=== PATIENT | female | born 1995 | race Hispanic/Latino ===

== ENCOUNTER 2017-09-22 12:24 | Emergency (ER) | payer OTHER ==
--- OUTSIDE RECORDS SUMMARY | 2017-09-22 12:28 | XMS REPORT | Clinical Summary ---
:1995 Author Organization [facility] Address [address] [place] [address] Care Team Providers Name Role Phone Asked, No Pcp Primary Care Provider Unavailable Allergies No Known Allergies Current Medications Prescription Sig. Disp. Refills Start Date End Date Status ibuprofen Take 400 mg by Active (ADVIL,MOTRIN) mouth as needed 400 MG tablet for headaches. multivitamin with Take 1 tablet by Active minerals tablet mouth daily. Takes One-A-Day women's doxycycline Take 1 capsule 22 capsule 0 10/28/2016 (VIBRAMYCIN) 100 (100 mg total) by 7 MG mouth 2 (two) capsuleIndication times a day for s: Pelvic 11 days inflammatory Indications: disease Pelvic inflammatory disease. hydrOXYzine Take 1 tablet (10 7 tablet 0 10/28/2016 (ATARAX) 10 MG mg total) by 7 tabletIndications mouth 3 (three) : Anxiety times a day as needed for anxiety for up to 30 days Indications: Anxiety. citalopram Take 1 tablet (20 14 tablet 0 10/28/2016 (CeleXA) 20 MG mg total) by 7 tabletIndications mouth every : Major morning for 30 Depressive days Indications: Disorder Major Depressive Disorder. traZODone Take 1 tablet (50 14 tablet 0 10/28/2016 (DESYREL) 50 MG mg total) by 7 tabletIndications mouth nightly as : insomnia needed for sleep associated with for up to 30 days depression Indications: insomnia associated with depression. doxycycline Take 1 capsule 14 capsule 0 10/28/2016 Discontinued (VIBRAMYCIN) 100 (100 mg total) by 7 MG mouth 2 (two) capsuleIndication times a day with s: Pelvic meals for 7 days inflammatory Indications: disease Pelvic inflammatory disease. Active Problems Problem Noted Date Emotionally unstable borderline personality disorder in adult 10/26/2016 PID (acute pelvic inflammatory disease) 10/26/2016 Severe episode of recurrent major depressive disorder, without psychotic 10/25 features Encounters Date Type Specialty Care Team Description 12/18/2016 Refill Neurosurgery Galilea Macedo MD 10/25/2016 - Hospital Encounter Psychiatry Leo Nye Severe episode of recurrent major depressive disorder, without psychotic features (Primary Dx); 10/28/2016 MD Melanie Stress reaction; Galilea Macedo Suicidal ideation; MD Tavo PID (acute pelvic inflammatory disease) after 09/21/2016 Family History Medical History Relation Name Comments Dementia Brother Bipolar disorder Father Relation Name Status Comments Brother Alive Father Social History Tobacco Use Types Packs/Day Years Used Date Never Smoker Alcohol Use Drinks/Week oz/Week Comments Yes 2 Shots of liquor 1.2 Pt states drinks 2 shots per month Sex Assigned at Date Recorded Not on file Last Filed Vital Signs Vital Sign Reading Time Taken Blood Pressure 108/55 10/28/2016 6:51 AM CDT Pulse 67 10/28/2016 6:51 AM CDT Temperature 36.3 C (97.3 F) 10/28/2016 6:51 AM CDT Respiratory Rate 18 10/28/2016 6:51 AM CDT Oxygen Saturation 99% 10/28/2016 6:51 AM CDT Inhaled Oxygen Concentration - - Weight 68 kg (150 lb) 10/25/2016 12:38 PM CDT Height 154.9 cm (5' 1") 10/25/2016 12:38 PM CDT Body Mass Index 28.34 10/25/2016 12:38 PM CDT Plan of Treatment Not on file Results GC By [employer] (10/27/2016 7:35 AM) Component Value Ref Range GC, [employer] Negative for Neisseria gonorrhoeae. Comment: Specimen Information Specimen Source: Urine Specimen Site: Random void Specimen Performing Laboratory Urine - Random void [facility] DEPARTMENT OF PATHOLOGY AND GENOMIC MEDICINE [address] [place] [id number] Chlamydia by [employer] (10/27/2016 7:35 AM) Component Value Ref Range Chlamydia, [employer] Negative for Chlamydia trachomatis. Comment: Specimen Information Specimen Source: Urine Specimen Site: Random void Specimen Performing Laboratory Urine - Random void [facility] DEPARTMENT OF PATHOLOGY AND GENOMIC MEDICINE [address] [place] [id number] CBC with platelet and differential (10/27/2016 5:33 AM)Only the most recent of2 resultswithin the time period is included. Component Value Ref Range WBC 6.70 4.50 - 11.00 k/uL RBC 4.57 4.20 - 5.50 m/uL HGB 13.3 12.0 - 16.0 g/dL HCT 41.6 37.0 - 47.0 % MCV 91.0 82.0 - 100.0 fL MCH 29.1 27.0 - 34.0 pg MCHC 32.0 31.0 - 37.0 g/dL RDW - SD 41.4 37.0 - 55.0 fL MPV 12.7 8.8 - 13.2 fL Platelet count 201 150 - 400 k/uL Nucleated RBC 0.00 /100 WBC Neutrophils 46.0 39.0 - 69.0 % Lymphocytes 40.4 25.0 - 45.0 % Monocytes 8.7 0.0 - 10.0 % Eosinophils 4.2 0.0 - 5.0 % Basophils 0.4 0.0 - 1.0 % Immature granulocytes 0.3Comment: "Immature granulocytes" 0.0 - 1.0 % (promyelocytes, myelocytes, metamyelocytes) Specimen Performing Laboratory Blood [facility] DEPARTMENT OF PATHOLOGY AND GENOMIC MEDICINE [address] [place] [address] Estimated GFR (10/27/2016 4:00 AM)Only the most recent of2 resultswithin the time period is included. Component Value Ref Range GFR Non Af Amer 88 mL/min/1.73 m2 GFR Af Amer >90 mL/min/1.73 m2 Comment: Chronic kidney disease: <60 mL/min/1.73m2 Kidney failure: <15 mL/min/1.73m2 The estimated GFR is calculated from the IDMS-traceable Modification of Diet in Renal Disease Equation. The accuracy of the calculation is poor when the creatinine is normal. Calculated values >90 mL/min/1.73m2 are not reported. This equation has not been validated in children (<18 years), women, the elderly (>70 years), or ethnic groups other than Caucasians and Americans. Specimen Performing Laboratory Plasma specimen [facility] DEPARTMENT OF PATHOLOGY AND GENOMIC MEDICINE [address] [place] [phone] Basic metabolic panel (10/27/2016 4:00 AM) Component Value Ref Range Sodium 141 135 - 148 mEq/L Potassium 4.3 3.5 - 5.0 mEq/L Chloride 103 98 - 112 mEq/L CO2 21 (L) 24 - 31 mEq/L Anion gap 17 (H) 7 - 15 mEq/L Comment: Starting from August , anion gap calculation no longer incorporates potassium. Please note the change. BUN 14 6 - 20 mg/dL Creatinine 0.8 0.5 - 0.9 mg/dL Glucose 90 65 - 99 mg/dL Calcium 8.8 8.3 - 10.2 mg/dL Specimen Performing Laboratory Plasma specimen [facility] DEPARTMENT OF PATHOLOGY AND GENOMIC MEDICINE [address] [place] [address] Hemoglobin A1c (10/26/2016 4:55 AM) Component Value Ref Range Hemoglobin A1C 5.2 4.0 - 5.6 % Comment: HbA1c cutoffs for diagnosing diabetes: 4.0% - 5.6%=normal 5.7% - 6.4%=increased risk for diabetes (prediabetes) >=6.5%=diabetes Goals for glycemic control (ADA 2016) < 7.0%Target for non adults with diabetes. More or less stringent targets may be appropriate for individual patients. <7.5% Target for Children and adolescents with type 1 diabetes. Specimen Performing Laboratory Blood [facility] DEPARTMENT OF PATHOLOGY AND GENOMIC MEDICINE [address] [place] [address] Vitamin B12 level (10/26/2016 4:00 AM) Component Value Ref Range Vitamin B12 275 211 - 946 pg/mL Comment: Significant overlap exists between normal and deficiency states. However, most patients with deficiencies will have Serum B12 <200 pg/mL. Specimen Performing Laboratory Serum [facility] DEPARTMENT OF PATHOLOGY AND GENOMIC MEDICINE [address] [place] [id number] Lipid panel (10/26/2016 4:00 AM) Component Value Ref Range Cholesterol 134 <200 mg/dL Triglycerides 97 <150 mg/dL HDL cholesterol 47 >40 mg/dL LDL cholesterol 78Comment: Result obtained by direct LDL <100 mg/dL measurement Lipid panel interpretation SeeBelow Comment: Total Cholesterol (mg/dL) <200 Desirable 160-607Zqsxcfyhxl-gqxi >=240High Triglycerides (mg/dL) <150 Normal 908-113Pomzjntwyb-hzdn 200-499High >=500Very high HDL Cholesterol (mg/dL) <40Low (male) <40Low (female) LDL Cholesterol (mg/dL) <100 Optimal 100-129Near or above optimal 656-890Zovhvdrler-hwqy 160-189High >=190Very high Risk Catergories that modify LDL goals. Risk CatergoriesLDL goal (mg/dL) CHD and CHD risk equivalent<100 (10-year risk >20%) Multiple (2+) risk factors <130 (10-year risk=<20%) 0-1 risk factors <160 (<10-year risk) Defining levels of lipids in metabolic syndrome Triglycerides>=150 mg/dL HDL Cholesterol Men<40 mg/dL Women<40 mg/dL Non-HDL cholesterol is a second target for therapy in persons with high triglycerides (>=200 mg/dL) Specimen Performing Laboratory Plasma specimen [facility] DEPARTMENT OF PATHOLOGY AND GENOMIC MEDICINE [address] [place] [address] ECG ED Preliminary Interpretation - NOT AN ORDER (10/25/2016 10:38 PM) John Nye MD 10/25/2016 10:38 PM ECG ED Preliminary Interpretation - Not an Order Performed by: LEO NYE Authorized by: LEO NYE ECG reviewed by ED Physician in the absence of a caddy packer: yes Previous ECG: Previous ECG:Unavailable Interpretation: Interpretation: normal Rate: ECG rate:91 ECG rate assessment: normal Rhythm: Rhythm: sinus rhythm Ectopy: Ectopy: none QRS: QRS axis:Normal QRS intervals:Normal Conduction: Conduction: normal ST segments: ST segments:Normal T waves: T waves: normal Syphilis treponemal IgG (10/25/2016 5:18 PM) Component Value Ref Range Syphilis treponemal IgG Non-reactiveComment: Non-reactive: No Non-reactive serological evidence of Syphilis infection Specimen Performing Laboratory Serum [facility] DEPARTMENT OF PATHOLOGY AND GENOMIC MEDICINE [address] [place] [address]4 Hepatitis acute panel (10/25/2016 5:18 PM) Component Value Ref Range Hepatitis A IgM Non-reactive Non-reactive Hepatitis B core IgM Non-reactive Non-reactive Hepatitis B surface Ag Non-reactive Non-reactive Hepatitis C Ab Non-reactive Non-reactive Specimen Performing Laboratory Serum [facility] DEPARTMENT OF PATHOLOGY AND [facility] MEDICINE [address] [place] [address] HIV 1, 2 antibody (10/25/2016 5:18 PM) Component Value Ref Range HIV 1, 2 antibody Non-reactive Non-reactive Comment: Starting from August 07 2015, 4th generation HIV screening and confirmation assays are in use at [facility], consistent with the CDC-recommended algorithm. The screening test detects antibodies to HIV-1, HIV-2 and the p24 antigen. Positive screening results will be automatically reflexed to a HIV-1/HIV-2 differentiation assay. Indeterminant HIV-1 results will be further automatically reflexed to a nucleic acid test for detection of acute infection. Western blot will no longer be performed as a confirmation test. For a quick reference guide on the testing algorithm, please refer to: http://stacks.cdc.gov/view/cdc/65497. Specimen Performing Laboratory Serum [facility] DEPARTMENT OF PATHOLOGY AND GENOMIC MEDICINE [address] [place] [address]84 Urinalysis screen and microscopy, with reflex to culture (10/25/2016 8:34 AM) Component Value Ref Range Specimen site Clean catch Color, UA Yellow Appearance, UA Clear Specific gravity, UA 1.020 1.001 - 1.035 pH, UA 6.0 5.0 - 8.5 Protein, UA 1+ (A) Negative Glucose, UA Negative Negative Ketones, UA Negative Negative Bilirubin, UA Negative Negative Blood, UA Negative Negative Nitrite, UA Negative Negative Urobilinogen, UA <2.0 <2.0 Leukocyte esterase, UA Trace (A) Negative Epithelial cells, UA 7 /HPF WBC, UA 8 (H) 0 - 4 /HPF RBC, UA 3 (H) 0 - 2 /HPF Bacteria, UA Few None seen Yeast, UA None seen Yeast with pseudohyphae, UA None seen Hyaline casts, UA 8 /LPF Specimen Performing Laboratory Urine [facility] DEPARTMENT OF PATHOLOGY AND GENOMIC MEDICINE [address] [place] [address] Urine drugs of abuse screen (10/25/2016 8:34 AM) Component Value Ref Range Amphetamine screen, urine Negative Barbiturate screen, urine Negative Benzodiazepine screen, urine Negative Cannabinoid screen, urine Negative Cocaine screen, urine Negative Methadone metabolite (EDDP), urine Negative Opiates screen, urine Negative Oxycodone screen, urine Negative Phencyclidine screen, urine Negative Tricyclic screen, urine Negative Comment: Drug screen minimum concentration of detectability Auzxidibqomw2849 ng/mL Barbiturates 200 ng/mL Skvvmvdeselisbr362 ng/mL Ltemawm928 ng/mL Geztofjlc946 ng/mL Vccmqxj175 ng/mL Fybdhylze068 ng/mL Phencyclidine 25 ng/mL Mauynufwbmdg64 ng/mL Sugwhzsacw0303 ng/mL Negative test results indicates presumptive evidence of lack of clinically significant drug concentration in this urine specimen. Positive test results are presumptive evidence of clinically significant drug concentration in this urine specimen. Testing performed for medical purposes only. Specimen Performing Laboratory Urine [facility] DEPARTMENT PATHOLOGY [address] [address] Gram stain (10/25/2016 8:25 AM) Component Value Ref Range Gram stain isolate Rare WBC's No organisms seen Comment: Specimen Information Specimen Source: Urine Specimen Site: See UA Specimen Performing Laboratory Urine [facility] PATHOLOGY [address] [address] Urine culture (10/25/2016 8:25 AM) Component Value Ref Range Urine culture isolate Mixed Gram positive yolanda <10-1 cfu/ml (A) Comment: Specimen Information Specimen Source: Urine Specimen Site: See UA Specimen Performing Laboratory Urine [facility] DEPARTMENT OF PATHOLOGY [address] [address] hCG qualitative, serum screen (10/25/2016 7:35 AM) Component Value Ref Range hCG qualitative, serum NegativeComment: Sensitivity of HCG test: 25 mIU/mL Specimen Performing Laboratory Blood [facility] DEPARTMENT PATHOLOGY [address] [address] Thyroid stimulating hormone (10/25/2016 7:35 AM) Component Value Ref Range TSH 1.71 0.27 - 4.20 uIU/mL Specimen Performing Laboratory Plasma specimen [facility] DEPARTMENT PATHOLOGY [address] [address] T4, free (10/25/2016 7:35 AM) Component Value Ref Range T4, free 1.6 0.9 - 1.7 ng/dL Specimen Performing Laboratory Plasma specimen [facility] DEPARTMENT PATHOLOGY [address] [address] Alcohol level, blood (10/25/2016 7:35 AM) Component Value Ref Range Alcohol 103.3 mg/dL Comment: Normal None Detected Legal Intoxication in [place]80 mg/dL (0.08%) - Whole Blood Toxic Dvffssmxwnlkq896 mg/dL (0.2%) Potentially Nnyhv684 - 500 mg/dL (0.35 - 0.5%) Alcohol percent 0.103 % Specimen Performing Laboratory Plasma specimen [facility] DEPARTMENT PATHOLOGY AND [facility] MEDICINE [address] [place] [address] Acetaminophen level (10/25/2016 7:35 AM) Component Value Ref Range Acetaminophen level <15.0 10.0 - 30.0 ug/mL Comment: Therapeutic 10-30 ug/mL Possible Toxicity 150-200 ug/mL Probable Toxicity >200 ug/mL Specimen Performing Laboratory Plasma specimen [facility] DEPARTMENT PATHOLOGY AND [address] [address] Salicylate level (10/25/2016 7:35 AM) Component Value Ref Range Salicylate <3.0 3.0 - 30.0 mg/dL Specimen Performing Laboratory Plasma specimen [facility] PATHOLOGY [address] [address] Comprehensive metabolic panel (10/25/2016 7:35 AM) Component Value Ref Range Sodium 144 135 - 148 mEq/L Potassium 3.2 (L) 3.5 - 5.0 mEq/L Chloride 104 98 - 112 mEq/L CO2 19 (L) 24 - 31 mEq/L Anion gap 21 (H) 7 - 15 mEq/L Comment: Starting from August , anion gap calculation no longer incorporates potassium. Please note the change. BUN 9 6 - 20 mg/dL Creatinine 0.6 0.5 - 0.9 mg/dL Glucose 109 (H) 65 - 99 mg/dL Calcium 9.2 8.3 - 10.2 mg/dL Protein 8.3 6.3 - 8.3 g/dL Comment: [place] 4.6-7.0 g/dL 1 week 4.4-7.6 g/dL 7 months-1year5.1-7.3 g/dL 1-2 years5.6-7.5 g/dL >3 years6.0-8.0 g/dL 18-150 6.3-8.3 g/dL Albumin 4.2 3.5 - 5.0 g/dL A/G ratio 1.0 0.7 - 3.8 Alkaline phosphatase 90 35 - 104 U/L AST 22 10 - 35 U/L ALT 16 5 - 50 U/L Total bilirubin 0.3 0.0 - 1.2 mg/dL Specimen Performing Laboratory Plasma specimen [facility] DEPARTMENT OF PATHOLOGY AND [facility] MEDICINE [address] [place] [address] ECG 12 lead (10/25/2016 7:33 AM) Component Value Ref Range Ventricular rate 91 Atrial rate 91 [place] interval 162 QRSD interval 94 QT interval 364 QTC interval 447 P axis 1 47 QRS axis 1 85 T wave axis 58 EKG impression Normal sinus rhythm-Normal ECG-No previous ECGs available- Specimen Performing Laboratory [facility] [address] [place] [address] after 09/21/2016 Insurance Payer Benefit Plan / Group Subscriber ID Type Phone Address [facility] CHOICE xxxxxxxx PPO [facility] xxxxxxxx [facility]
--- NOTE | 2017-09-22 14:21 | RAD REPORT ---
EXAM DESCRIPTION: CT - Head Brain Wo Cont - 09/22/2017 2:13 pm CLINICAL HISTORY: Headache COMPARISON: 10/05/2016 TECHNIQUE: All CT scans are performed using dose optimization technique as appropriate and may inclu de automated exposure control or mA/KV adjustment according to patient size. FINDINGS: No intracranial hemorrhage, hydrocephalus or extra-axial fluid collection.No areas of brai n edema or evidence of midline shift. The paranasal sinuses and mastoids are clear. The calvarium is intact. IMPRESSION: No acute intracranial abnormality.
--- NOTE | 2017-09-22 14:32 | ER ---
Nurse's Notes [facility] Name: Linda Oneal Age: 22 yrs Sex: Female : 1995 Arrival Date: 09/22/2017 Time: 12:28 Bed 13 Private MD: Diagnosis: Headache Presentation: 09/22 12:55 Presenting complaint: Patient states: " I have had a headache for about a week now. I ph keep taking Tylenol but it won't go away." Pt reports pressure in top of head and pastor temporal areas, also reports felling pressure in ears and blurred vision, denies N/V or fever, also denies hx of migraines. Transition of care: patient was not received from another setting of care. Onset of symptoms was September 22, 2017. Initial Sepsis Screen: Does the patient meet any 2 criteria? No. Patient's initial sepsis screen is negative. Does the patient have a suspected source of infection? No. Patient's initial sepsis screen is negative. Care prior to arrival: None. 12:55 Method Of Arrival: Ambulatory ph 12:55 Acuity: FROYLAN 3 ph Triage Assessment: 13:20 Headache History: Denies prior headaches. rb1 13:20 Pain: Also complains of inability to concentrate. 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 - Social history:: Smoking status: Patient/guardian denies using tobacco. - Family history:: not pertinent. Screenin:20 Abuse screen: Denies threats or abuse. Nutritional screening: No deficits noted. rb1 Tuberculosis screening: No symptoms or risk factors identified. Fall Risk None identified. Assessment: 13:20 General: Appears uncomfortable, Behavior is calm, cooperative. Pain: Complains of pain rb1 in top and bilateral temporals Pain currently is 6 out of 10 on a pain scale. Pain began x 1 week. Neuro: Level of Consciousness is awake, alert, obeys commands, Oriented to person, place, time, situation. Cardiovascular: Capillary refill < 3 seconds is brisk in bilateral fingers. Respiratory: Airway is patent Respiratory effort is even, unlabored, Respiratory pattern is regular, symmetrical. GI: No signs and/or symptoms were reported involving the gastrointestinal system. : No signs and/or symptoms were reported regarding the genitourinary system. Derm: Skin is dry, Skin is normal, Skin temperature is warm. Musculoskeletal: Range of motion: intact in all extremities. 14:09 Reassessment: Patient appears in no apparent distress at this time. Patient and/or rb1 family updated on plan of care and expected duration. Pain level reassessed. Patient is alert, oriented x 3, equal unlabored respirations, skin warm/dry/pink. 15:00 Reassessment: Patient appears in no apparent distress at this time. Patient and/or rb1 family updated on plan of care and expected duration. Pain level reassessed. Patient is alert, oriented x 3, equal unlabored respirations, skin warm/dry/pink. Vital Signs: 12:58 BP 131 / 76; Pulse 75; Resp 18; Temp 97.9; Pulse Ox 98% on R/A; Weight 68.04 kg; Height ph 5 ft. 0 in. (152.40 cm); Pain 6/10; 14:00 BP 124 / 72; Pulse 73; Resp 17; Pulse Ox 99% on R/A; rb1 15:10 BP 107 / 64; Pulse 72; Resp 16; Pulse Ox 100% on R/A; Pain 6/10; rb1 12:58 Body Mass Index 29.29 (68.04 kg, 152.40 cm) ph ED Course: 12:28 Patient arrived in ED. sb2 12:58 Triage completed. ph 12:59 Arm band placed on. ph 13:17 Julio An MD is Attending Physician. sergio 13:20 Patient has correct armband on for positive identification. Bed in low position. Call rb1 light in reach. Side rails up X 1. Pulse ox on. NIBP on. 13:48 Elena Barraza, RN is Primary Nurse. rb1 14:10 CT completed. Patient tolerated procedure well. Patient moved to CT via wheelchair. Patient moved back from CT. 14:14 CT Head Brain wo Cont In Process Unspecified. EDMS 15:48 No provider procedures requiring assistance completed. Patient did not have IV access rb1 during this emergency room visit. Administered Medications: 15:06 Drug: Motrin 600 mg Route: PO; rb1 15:50 Follow up: Response: No adverse reaction; Pain is decreased; 08/18 rb1 Point of Care Testing: Blood Glucose: 15:12 Blood Glucose: 106 mg/dL; rb1 Ranges: Intake: Outcome: 14:32 Discharge ordered by MD. hill 15:48 Discharged to home ambulatory. rb1 15:48 Condition: stable 15:48 Discharge instructions given to patient, Instructed on discharge instructions, follow up and referral plans. medication usage, Demonstrated understanding of instructions, follow-up care, medications, Prescriptions given X 1. 15:48 Patient left the ED. rb1 Signatures: Dispatcher [employer] EDJulio Anand MD MD cha Hall, Patricia, RN RN Jaret, Elena Granger RN RN rb1 Nancy Juárez sb2 Corrections: (The following items were deleted from the chart) 15:51 15:51 Patient left the ED. rb1 rb1
--- NOTE | 2017-09-22 14:33 | EDPHYS ---
Physician Documentation [facility] Name: Linda Oneal Age: 22 yrs Sex: Female : 1995 Arrival Date: 09/22/2017 Time: 12:28 Bed 13 Private MD: ED Physician Julio An HPI: 09/22 13:58 This 22 yrs old Female presents to ER via Ambulatory with complaints of sergio Headache. 13:58 The patient complains of pain to the forehead, right ear, left ear, right orthodox, left sergio orthodox, left frontal area, left temporal area, right frontal area and right temporal area. The patient describes the headache as a pressure. Onset: The symptoms/episode began/occurred 3 day(s) ago. Associated signs and symptoms: The patient has no apparent associated signs or symptoms. Severity of symptoms: At its worst the pain was moderate, in the emergency department the pain is unchanged. Headache History: The patient has had previous headaches and this one is different than previous episodes. The symptoms are alleviated by nothing. the symptoms are aggravated by nothing. The patient has not experienced similar symptoms in the past. [employer]: 12:58 LMP 09/03/2017 ph Historical: - Allergies: 12:59 No Known Allergies; ph - PMHx: 12:59 Anxiety; Ovarian cyst; PID; ph - PSHx: 12:59 Lumpectomy; ph - Immunization history:: Adult Immunizations up to date. - Social history:: Smoking status: Patient/guardian denies using tobacco. - Family history:: not pertinent. ROS: 13:58 Constitutional: Negative for fever, chills, and weight loss, Eyes: Negative for injury, sergio pain, redness, and discharge, ENT: Negative for injury, pain, and discharge, Neck: Negative for injury, pain, and swelling, Cardiovascular: Negative for chest pain, palpitations, and edema, Respiratory: Negative for shortness of breath, cough, wheezing, and pleuritic chest pain, Abdomen/GI: Negative for abdominal pain, nausea, vomiting, diarrhea, and constipation, Back: Negative for injury and pain, : Negative for injury, bleeding, discharge, and swelling, MS/Extremity: Negative for injury and deformity, Skin: Negative for injury, rash, and discoloration, Psych: Negative for depression, anxiety, suicide ideation, homicidal ideation, and hallucinations, Allergy/Immunology: Negative for hives, rash, and allergies, Endocrine: Negative for neck swelling, polydipsia, polyuria, polyphagia, and marked weight changes, Hematologic/Lymphatic: Negative for swollen nodes, abnormal bleeding, and unusual bruising. 13:58 Neuro: Positive for headache. Exam: 13:58 Constitutional: This is a well developed, well nourished patient who is awake, alert, sergio and in no acute distress. Head/Face: Normocephalic, atraumatic. Eyes: Pupils equal round and reactive to light, extra-ocular motions intact. Lids and lashes normal. Conjunctiva and sclera are non-icteric and not injected. Cornea within normal limits. Periorbital areas with no swelling, redness, or edema. ENT: Nares patent. No nasal discharge, no septal abnormalities noted. Tympanic membranes are normal and external auditory canals are clear. Oropharynx with no redness, swelling, or masses, exudates, or evidence of obstruction, uvula midline. Mucous membranes moist. Neck: Trachea midline, no thyromegaly or masses palpated, and no cervical lymphadenopathy. Supple, full range of motion without nuchal rigidity, or vertebral point tenderness. No Meningismus. Chest/axilla: Normal chest wall appearance and motion. Nontender with no deformity. No lesions are appreciated. Cardiovascular: Regular rate and rhythm with a normal S1 and S2. No gallops, murmurs, or rubs. Normal PMI, no JVD. No pulse deficits. Respiratory: Lungs have equal breath sounds bilaterally, clear to auscultation and percussion. No rales, rhonchi or wheezes noted. No increased work of breathing, no retractions or nasal flaring. Abdomen/GI: Soft, non-tender, with normal bowel sounds. No distension or tympany. No guarding or rebound. No evidence of tenderness throughout. Back: No spinal tenderness. No costovertebral tenderness. Full range of motion. Skin: Warm, dry with normal turgor. Normal color with no rashes, no lesions, and no evidence of cellulitis. MS/ Extremity: Pulses equal, no cyanosis. Neurovascular intact. Full, normal range of motion. Psych: Awake, alert, with orientation to person, place and time. Behavior, mood, and affect are within normal limits. 13:58 Neck: ROM/movement: is normal, no acute changes, Meningeal signs: are not present, Kernig's sign is negative, Brudzinski's sign is negative. Vital Signs: 12:58 BP 131 / 76; Pulse 75; Resp 18; Temp 97.9; Pulse Ox 98% on R/A; Weight 68.04 kg; Height ph 5 ft. 0 in. (152.40 cm); Pain 6/10; 14:00 BP 124 / 72; Pulse 73; Resp 17; Pulse Ox 99% on R/A; rb1 15:10 BP 107 / 64; Pulse 72; Resp 16; Pulse Ox 100% on R/A; Pain 6/10; rb1 12:58 Body Mass Index 29.29 (68.04 kg, 152.40 cm) ph MDM: 13:17 Patient medically screened. [facility] 09/22 13:58 Order name: Urine Culture [facility] 09/22 13:58 Order name: CT Head Brain wo Cont; Complete Time: 14:30 [facility] 09/22 13:58 Order name: Urine Dipstick-Ancillary (obtain specimen); Complete Time: 15:50 [facility] 09/22 13:58 Order name: Urine Test (obtain specimen); Complete Time: 15:50 [facility] 09/22 13:58 Order name: Blood Glucose Level; Complete Time: 15:13 [facility] 09/22 14:02 Order name: Vital Signs; Complete Time: 15:06 [facility] Administered Medications: 15:06 Drug: Motrin 600 mg Route: PO; rb1 15:50 Follow up: Response: No adverse reaction; Pain is decreased; 08/18 rb1 Point of Care Testing: Blood Glucose: 15:12 Blood Glucose: 106 mg/dL; rb1 Ranges: Critical Glucose Levels:Adult <50 mg/dl or >400 mg/dl <40 mg/dl or >180 mg/dl Disposition: 09/22/17 14:32 Discharged to Home. Impression: Headache. - Condition is Stable. - Discharge Instructions: General Headache Without Cause, General Headache Without Cause, [id number]. - Prescriptions for Fioricet with Codeine 50- 325-40-30 mg Oral capsule - take 1 capsule by ORAL route every 4 hours as needed not to exceed 6 capsules per 24hrs; 24 capsule. - Medication Reconciliation Form, Thank You Letter, Antibiotic Education, Prescription Opioid Use form. - Follow up: Private Physician; When: 2 - 3 days; Reason: Recheck today's complaints, Continuance of care, Re-evaluation by your physician. - Problem is new. - Symptoms have improved. Signatures: Dispatcher [employer] EDMS Julio An MD MD cha Hall, Patricia, RN RN Elena Barraza, RN RN rb1 Corrections: (The following items were deleted from the chart) 15:51 14:32 09/22/2017 14:32 Discharged to Home. Impression: Headache. Condition is Stable. rb1 Discharge Instructions: General Headache Without Cause, General Headache Without Cause, [id number]. Prescriptions for Fioricet with Codeine 35-114-45-30 mg Oral capsule - take 1 capsule by ORAL route every 4 hours as needed not to exceed 6 capsules per 24hrs; 24 capsule. and Forms are Medication Reconciliation Form, Thank You Letter, Antibiotic Education, Prescription Opioid Use. Follow up: Private Physician; When: 2 - 3 days; Reason: Recheck today's complaints, Continuance of care, Re-evaluation by your physician. Problem is new. Symptoms have improved. sergio
[2017-09-22] MEDS ORDERED: IBUPROFEN 400 MG TAB ONE (15:01)
[2017-09-22] MEDS ORDERED: IBUPROFEN 200 MG TAB PO ONE (15:01)
[2017-09-22 15:55] VITALS: TEMP 97.9
[2017-09-22 15:57] VITALS: BP 107/64; O2SAT 100
== END 2017-09-22 15:51 | disposition home or self-care (01) ==
LOC: ER 12:24
DX: R51 Headache (principal)
CPT/HCPCS: 70450; 82962; 87086; 87088; 99284

== ENCOUNTER 2017-10-26 09:55 | Emergency (ER) | payer OTHER ==
--- OUTSIDE RECORDS SUMMARY | 2017-10-26 09:58 | XMS REPORT | Clinical Summary ---
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 GC BY PROBETEC Routine 10/27/2016 7:35 Results for this AM CDT procedure are in the results section. HC COMPLETE BLD COUNT Routine 10/27/2016 5:33 Results for this W/AUTO DIFF AM CDT procedure are in the results section. ESTIMATED GFR Routine 10/27/2016 4:00 Results for this AM CDT procedure are in the results section. BASIC METABOLIC PANEL Routine 10/27/2016 4:00 Results for this AM CDT procedure are in the results section. HEMOGLOBIN A1C Routine 10/26/2016 4:55 Results for this AM CDT procedure are in the results section. VITAMIN B12 LEVEL Routine 10/26/2016 4:00 Results for this AM CDT procedure are in the results section. LIPID PANEL Routine 10/26/2016 4:00 Results for this AM CDT procedure are in the results section. ECG ED PRELIMINARY Routine 10/25/2016 10:38 Results for this INTERPRETATION PM CDT procedure are in the results section. HIV 1, 2 ANTIBODY Routine 10/25/2016 5:18 Results for this PM CDT procedure are in the results section. SYPHILIS TREPONEMAL IGG Routine 10/25/2016 5:18 Results for this PM CDT procedure are in the results section. HEPATITIS ACUTE PANEL Routine 10/25/2016 5:18 Results for this PM CDT procedure are in the results section. URINE DRUGS OF ABUSE STAT 10/25/2016 8:34 Results for this SCREEN AM CDT procedure are in the results section. URINALYSIS SCREEN AND STAT 10/25/2016 8:34 Results for this MICROSCOPY, WITH REFLEX AM CDT procedure are in TO CULTURE the results section. GRAM STAIN STAT 10/25/2016 8:25 Results for this AM CDT procedure are in the results section. URINE CULTURE STAT 10/25/2016 8:25 Results for this AM CDT procedure are in the results section. ESTIMATED GFR STAT 10/25/2016 7:35 Results for this AM CDT procedure are in the results section. SALICYLATE LEVEL STAT 10/25/2016 7:35 Results for this AM CDT procedure are in the results section. ACETAMINOPHEN LEVEL STAT 10/25/2016 7:35 Results for this AM CDT procedure are in the results section. HCG QUALITATIVE, SERUM STAT 10/25/2016 7:35 Results for this SCREEN AM CDT procedure are in the results section. ALCOHOL LEVEL, BLOOD STAT 10/25/2016 7:35 Results for this AM CDT procedure are in the results section. HC COMPLETE BLD COUNT STAT 10/25/2016 7:35 Results for this W/AUTO DIFF AM CDT procedure are in the results section. THYROID STIMULATING STAT 10/25/2016 7:35 Results for this HORMONE AM CDT procedure are in the results section. T4, FREE STAT 10/25/2016 7:35 Results for this AM CDT procedure are in the results section. COMPREHENSIVE METABOLIC STAT 10/25/2016 7:35 Results for this PANEL AM CDT procedure are in the results section. ECG 12-LEAD Routine 10/25/2016 7:33 Results for this AM CDT procedure are in the results section. after 10/25/2016 Results GC By ProbeTec (10/27/2016 7:35 AM) GC, ProbeT[employer] Negative for Neisseria gonorrhoeae. [facility] DEPARTMENT OF PATHOLOGY Comment: AND GENOMIC MEDICINE Specimen Information Specimen Source: Urine Specimen Site: Random void Specimen Urine - Random void Performing Organization Address City/[facility] Phone Number [facility] DEPARTMENT OF PATHOLOGY AND [address] [place] [address] GENOMIC MEDICINE Chlamydia by Probe[employer] (10/27/2016 7:35 AM) [facility]. [facility] DEPARTMENT OF PATHOLOGY Comment: AND GENOMIC MEDICINE Specimen Information Specimen Source: Urine Specimen Site: Random void Specimen Urine - Random void Performing Organization Address City/[facility] Phone Number [facility] DEPARTMENT OF PATHOLOGY AND [address] [place] [address] GENOMIC [facility] CBC with platelet and differential (10/27/2016 5:33 AM)Only the most recent of2 resultswithin the time period is included. WBC 6.70 4.50 - 11.00 k/uL [facility] DEPARTMENT OF PATHOLOGY AND GENOMIC MEDICINE RBC 4.57 4.20 - 5.50 m/uL [facility] DEPARTMENT OF PATHOLOGY AND GENOMIC MEDICINE HGB 13.3 12.0 - 16.0 g/dL [facility] DEPARTMENT OF PATHOLOGY AND GENOMIC MEDICINE HCT 41.6 37.0 - 47.0 % [facility] DEPARTMENT OF PATHOLOGY AND GENOMIC MEDICINE MCV 91.0 82.0 - 100.0 fL [facility] DEPARTMENT OF PATHOLOGY AND GENOMIC MEDICINE MCH 29.1 27.0 - 34.0 pg [facility] DEPARTMENT OF PATHOLOGY AND GENOMIC MEDICINE MCHC 32.0 31.0 - 37.0 g/dL [facility] DEPARTMENT OF PATHOLOGY AND GENOMIC MEDICINE RDW - SD 41.4 37.0 - 55.0 fL [facility] DEPARTMENT OF PATHOLOGY AND GENOMIC MEDICINE MPV 12.7 8.8 - 13.2 fL [facility] DEPARTMENT OF PATHOLOGY AND GENOMIC MEDICINE Platelet count 201 150 - 400 k/uL [facility] DEPARTMENT OF PATHOLOGY AND GENOMIC MEDICINE Nucleated RBC 0.00 /100 WBC [facility] DEPARTMENT OF PATHOLOGY AND GENOMIC MEDICINE Neutrophils 46.0 39.0 - 69.0 % [facility] DEPARTMENT OF PATHOLOGY AND GENOMIC MEDICINE Lymphocytes 40.4 25.0 - 45.0 % [facility] DEPARTMENT OF PATHOLOGY AND GENOMIC MEDICINE Monocytes 8.7 0.0 - 10.0 % [facility] DEPARTMENT OF PATHOLOGY AND GENOMIC MEDICINE Eosinophils 4.2 0.0 - 5.0 % [facility] DEPARTMENT OF PATHOLOGY AND GENOMIC MEDICINE Basophils 0.4 0.0 - 1.0 % [facility] DEPARTMENT OF PATHOLOGY AND GENOMIC MEDICINE Immature granulocytes 0.3Comment: 0.0 - 1.0 % [facility] DEPARTMENT OF "Immature PATHOLOGY AND GENOMIC granulocytes" MEDICINE (promyelocytes, myelocytes, metamyelocytes) Specimen Blood Performing Organization Address City/[facility] Phone Number [facility] DEPARTMENT OF PATHOLOGY AND [address] [place] [address] [facility] Estimated GFR (10/27/2016 4:00 AM)Only the most recent of2 resultswithin the time period is included. GFR Non Af Amer 88 mL/min/1.73 m2 [facility] DEPARTMENT OF PATHOLOGY AND GENOMIC MEDICINE GFR Af Amer >90 mL/min/1.73 m2 [facility] DEPARTMENT OF Comment: PATHOLOGY AND GENOMIC Chronic kidney disease: <60 mL/min/1.73m2 MEDICINE Kidney failure: <15 mL/min/1.73m2 The estimated GFR is calculated from the IDMS-traceable Modification of Diet in Renal Disease Equation. The accuracy of the calculation is poor when the creatinine is normal. Calculated values >90 mL/min/1.73m2 are not reported. This equation has not been validated in children (<18 years), women, the elderly (>70 years), or ethnic groups other than Caucasians and Americans. Specimen Plasma specimen Performing Organization Address City/State/Zipcode Phone Number [facility] DEPARTMENT OF PATHOLOGY AND [address] [place] [address] DBVu Basic metabolic panel (10/27/2016 4:00 AM) Sodium 141 135 - 148 mEq/L [facility] DEPARTMENT OF PATHOLOGY AND GENOMIC MEDICINE Potassium 4.3 3.5 - 5.0 mEq/L [facility] DEPARTMENT OF PATHOLOGY AND GENOMIC MEDICINE Chloride 103 98 - 112 mEq/L [facility] DEPARTMENT OF PATHOLOGY AND GENOMIC MEDICINE CO2 21 (L) 24 - 31 mEq/L [facility] DEPARTMENT OF PATHOLOGY AND GENOMIC MEDICINE Anion gap 17 (H) 7 - 15 mEq/L [facility] DEPARTMENT OF PATHOLOGY Comment: AND [facility] Starting from August , anion gap calculation no longer incorporates potassium. Please note the change. BUN 14 6 - 20 mg/dL [facility] DEPARTMENT OF PATHOLOGY AND GENOMIC MEDICINE Creatinine 0.8 0.5 - 0.9 mg/dL [facility] DEPARTMENT OF PATHOLOGY AND GENOMIC MEDICINE Glucose 90 65 - 99 mg/dL [facility] DEPARTMENT OF PATHOLOGY AND GENOMIC MEDICINE Calcium 8.8 8.3 - 10.2 mg/dL [facility] DEPARTMENT OF PATHOLOGY AND GENOMIC MEDICINE Specimen Plasma specimen Performing Organization Address City/State/[facility] Phone Number [facility] DEPARTMENT OF PATHOLOGY AND [address] [place] [address] Hemoglobin A1c (10/26/2016 4:55 AM) Hemoglobin A1C 5.2 4.0 - 5.6 % [facility] DEPARTMENT OF PATHOLOGY Comment: AND [facility] HbA1c cutoffs for diagnosing diabetes: 4.0% - 5.6%=normal 5.7% - 6.4%=increased risk for diabetes (prediabetes) >=6.5%=diabetes Goals for glycemic control (ADA 2016) < 7.0%Target for non adults with diabetes. More or less stringent targets may be appropriate for individual patients. <7.5% Target for Children and adolescents with type 1 diabetes. Specimen Blood Performing Organization Address [facility] Phone Number [facility] DEPARTMENT OF PATHOLOGY AND [address] [place], [place] [id number] [facility] Vitamin B12 level (10/26/2016 4:00 AM) Vitamin B12 275 211 - 946 pg/mL [facility] DEPARTMENT OF PATHOLOGY Comment: AND [facility] Significant overlap exists between normal and deficiency states. However, most patients with deficiencies will have Serum B12 <200 pg/mL. Specimen Serum Performing Organization Address City/[facility]/Zipcode Phone Number [facility] DEPARTMENT OF PATHOLOGY AND [address] [place] [phone] [facility] Lipid panel (10/26/2016 4:00 AM) Cholesterol 134 <200 mg/dL [facility] DEPARTMENT OF PATHOLOGY AND GENOMIC MEDICINE Triglycerides 97 <150 mg/dL [facility] DEPARTMENT OF PATHOLOGY AND GENOMIC MEDICINE HDL cholesterol 47 >40 mg/dL [facility] DEPARTMENT OF PATHOLOGY AND GENOMIC MEDICINE LDL cholesterol 78Comment: Result <100 mg/dL [facility] DEPARTMENT OF obtained by direct LDL PATHOLOGY AND GENOMIC measurement MEDICINE [facility]id panel [facility] Comment: PATHOLOGY AND GENOMIC Total Cholesterol (mg/dL) MEDICINE <200 Desirable [phone]-ewgl >=240High Triglycerides (mg/dL) <150 Normal [phone]-szrz 200-499High >=500Very high HDL Cholesterol (mg/dL) <40Low (male) <40Low (female) LDL Cholesterol (mg/dL) <100 Optimal 100-129Near or above optimal 140-469Jpnhsviezb-ssvm 160-189High >=190Very high Risk Catergories that modify [...] persons with high triglycerides (>=200 mg/dL) Specimen Plasma specimen Performing Organization Address City/State/[facility] Phone Number [facility] DEPARTMENT OF PATHOLOGY AND [address] [place] [address], [place] [address] GENOMIC MEDICINE ECG ED Preliminary Interpretation - NOT AN ORDER (10/25/2016 10:38 PM) Narrative Performed At [facility] MD [facility] 10/25/2016 10:38 PM ECG ED Preliminary Interpretation - Not an Order Performed by: LEO CORTES Authorized by: LEO CORTES ECG reviewed by ED Physician in the absence of a lab analyst: yes Previous ECG: Previous ECG:Unavailable Interpretation: Interpretation: normal Rate: ECG rate:91 ECG rate assessment: normal Rhythm: Rhythm: sinus rhythm Ectopy: Ectopy: none QRS: QRS axis:Normal QRS intervals:Normal Conduction: Conduction: normal ST segments: ST segments:Normal T waves: T waves: normal Syphilis treponemal IgG (10/25/2016 5:18 PM) Syphilis treponemal IgG Non-reactiveComment: Non-reactive [facility] DEPARTMENT OF Non-reactive: No PATHOLOGY AND GENOMIC serological evidence of MEDICINE Syphilis infection Specimen Serum Performing Organization Address City/[facility] Phone Number [facility] DEPARTMENT OF PATHOLOGY AND [address] [place] [address] Hepatitis acute panel (10/25/2016 5:18 PM) Hepatitis A IgM Non-reactive Non-reactive [facility] DEPARTMENT OF PATHOLOGY AND GENOMIC MEDICINE Hepatitis B core IgM Non-reactive Non-reactive [facility] DEPARTMENT OF PATHOLOGY AND GENOMIC MEDICINE Hepatitis B surface Ag Non-reactive Non-reactive [facility] DEPARTMENT OF PATHOLOGY AND GENOMIC MEDICINE Hepatitis C Ab Non-reactive Non-reactive [facility] DEPARTMENT OF PATHOLOGY AND GENOMIC MEDICINE Specimen Serum Performing Organization Address City/[facility] Phone Number [facility] DEPARTMENT OF PATHOLOGY AND [address] [place] [address] HIV 1, 2 antibody (10/25/2016 5:18 PM) HIV 1, 2 antibody Non-reactive Non-reactive [facility] DEPARTMENT OF Comment: PATHOLOGY AND GENOMIC Starting from August 07 2015, 4th generation HIV screening MEDICINE and confirmation assays are in use at [facility], consistent with the CDC-recommended algorithm. [...] on the testing algorithm, please refer to: http://stacks.cdc.gov/view/cdc/25731. Specimen Serum Performing Organization Address City/[facility] Phone Number [facility] DEPARTMENT OF PATHOLOGY AND [address] [place] [address] Urinalysis screen and microscopy, with reflex to culture (10/25/2016 8:34 AM) Specimen site Clean catch [facility] DEPARTMENT OF PATHOLOGY AND GENOMIC MEDICINE Color, UA Yellow [facility] DEPARTMENT OF PATHOLOGY AND GENOMIC MEDICINE Appearance, UA Clear [facility] DEPARTMENT OF PATHOLOGY AND GENOMIC MEDICINE Specific gravity, UA 1.020 1.001 - 1.035 [facility] DEPARTMENT OF PATHOLOGY AND GENOMIC MEDICINE pH, UA 6.0 5.0 - 8.5 [facility] DEPARTMENT OF PATHOLOGY AND GENOMIC MEDICINE Protein, UA 1+ (A) Negative [facility] DEPARTMENT OF PATHOLOGY AND GENOMIC MEDICINE Glucose, UA Negative Negative [facility] DEPARTMENT OF PATHOLOGY AND GENOMIC MEDICINE Ketones, UA Negative Negative [facility] DEPARTMENT OF PATHOLOGY AND GENOMIC MEDICINE Bilirubin, UA Negative Negative [facility] DEPARTMENT OF PATHOLOGY AND GENOMIC MEDICINE Blood, UA Negative Negative [facility] DEPARTMENT OF PATHOLOGY AND GENOMIC MEDICINE Nitrite, UA Negative Negative [facility] DEPARTMENT OF PATHOLOGY AND GENOMIC MEDICINE Urobilinogen, UA <2.0 <2.0 [facility] DEPARTMENT OF PATHOLOGY AND GENOMIC MEDICINE Leukocyte esterase, UA Trace (A) Negative [facility] DEPARTMENT OF PATHOLOGY AND GENOMIC MEDICINE Epithelial cells, UA 7 /HPF [facility] DEPARTMENT OF PATHOLOGY AND GENOMIC MEDICINE WBC, UA 8 (H) 0 - 4 /HPF [facility] DEPARTMENT OF PATHOLOGY AND GENOMIC MEDICINE RBC, UA 3 (H) 0 - 2 /HPF [facility] DEPARTMENT OF PATHOLOGY AND GENOMIC MEDICINE Bacteria, UA Few None seen [facility] DEPARTMENT OF PATHOLOGY AND GENOMIC MEDICINE Yeast, UA None seen [facility] DEPARTMENT OF PATHOLOGY AND GENOMIC MEDICINE Yeast with pseudohyphae, UA None seen [facility] DEPARTMENT OF PATHOLOGY AND GENOMIC MEDICINE Hyaline casts, UA 8 /LPF [facility] DEPARTMENT OF PATHOLOGY AND GENOMIC MEDICINE Specimen Urine Performing Organization Address City/State/Zipcode Phone Number [facility] DEPARTMENT OF PATHOLOGY AND [address] [place] [phone] [facility] Urine drugs of abuse screen (10/25/2016 8:34 AM) Amphetamine screen, urine Negative [facility] DEPARTMENT OF PATHOLOGY AND GENOMIC MEDICINE Barbiturate screen, urine Negative [facility] DEPARTMENT OF PATHOLOGY AND GENOMIC MEDICINE Benzodiazepine screen, Negative [facility] DEPARTMENT OF urine PATHOLOGY AND GENOMIC MEDICINE Cannabinoid screen, urine Negative [facility] DEPARTMENT OF PATHOLOGY AND GENOMIC MEDICINE Cocaine screen, urine Negative [facility] DEPARTMENT OF PATHOLOGY AND GENOMIC MEDICINE Methadone metabolite Negative [facility] DEPARTMENT OF (EDDP), urine PATHOLOGY AND GENOMIC MEDICINE Opiates screen, urine Negative [facility] DEPARTMENT OF PATHOLOGY AND GENOMIC MEDICINE Oxycodone screen, urine Negative [facility] DEPARTMENT OF PATHOLOGY AND GENOMIC MEDICINE Phencyclidine screen, urine Negative [facility] DEPARTMENT OF PATHOLOGY AND GENOMIC MEDICINE Tricyclic screen, urine Negative [facility] DEPARTMENT OF Comment: PATHOLOGY AND GENOMIC Drug screen minimum concentration of detectability MEDICINE [id number] ng/mL Barbiturates 200 ng/mL Yoaphoiwhmftijr186 ng/mL Eosvvzr592 ng/mL Qrhnujfej249 ng/mL Fvmlhum725 ng/mL Vxehqumjw868 ng/mL Phencyclidine 25 ng/mL Hydocoxjegnj19 ng/mL Qfqvtgtmgf8489 ng/mL Negative test results indicates presumptive evidence of lack of clinically significant drug concentration in this urine specimen. Positive test results are presumptive evidence of clinically significant drug concentration in this urine specimen. Testing performed for medical purposes only. Specimen Urine Performing Organization Address [facility] Phone Number [facility] DEPARTMENT OF PATHOLOGY AND [address] [place] [address] Gram stain (10/25/2016 8:25 AM) Gram stain isolate Rare WBC's [facility] DEPARTMENT OF PATHOLOGY AND No organisms seen [facility] Comment: Specimen Information Specimen Source: Urine Specimen Site: See UA Specimen Urine Performing Organization Address [facility] Phone Number [facility] DEPARTMENT OF PATHOLOGY AND [address] [place] [address] Urine culture (10/25/2016 8:25 AM) Urine culture isolate Mixed Gram positive yolanda [facility] DEPARTMENT OF PATHOLOGY <10-1 cfu/ml AND [facility] (A) Comment: Specimen Information Specimen Source: Urine Specimen Site: See UA Specimen Urine Performing Organization Address [facility] Phone Number [facility] DEPARTMENT OF PATHOLOGY AND [address] [place] [address] hCG qualitative, serum screen (10/25/2016 7:35 AM) hCG qualitative, serum NegativeComment: [facility] DEPARTMENT OF Sensitivity of HCG test: 25 PATHOLOGY AND GENOMIC mIU/mL MEDICINE Specimen Blood Performing Organization Address [facility] Phone Number [facility] DEPARTMENT OF PATHOLOGY AND [address] [place] [address] Thyroid stimulating hormone (10/25/2016 7:35 AM) TSH 1.71 0.27 - 4.20 uIU/mL [facility] DEPARTMENT OF PATHOLOGY AND [facility] MEDICINE Specimen Plasma specimen Performing Organization Address [facility] Phone Number [facility] DEPARTMENT OF PATHOLOGY AND [address] [place] [address] T4, free (10/25/2016 7:35 AM) T4, free 1.6 0.9 - 1.7 ng/dL [facility] DEPARTMENT OF PATHOLOGY AND GENOMIC MEDICINE Specimen Plasma specimen Performing Organization Address [facility] Phone Number [facility] DEPARTMENT OF PATHOLOGY AND [address] [place] [address] Alcohol level, blood (10/25/2016 7:35 AM) Alcohol 103.3 mg/dL [facility] DEPARTMENT OF PATHOLOGY Comment: AND GENOMIC MEDICINE Normal None Detected Legal Intoxication in [place]80 mg/dL (0.08%) - Whole Blood Toxic Njbmtrmgtuurd465 mg/dL (0.2%) Potentially Rqzgb456 - 500 mg/dL (0.35 - 0.5%) Alcohol percent 0.103 % [facility] DEPARTMENT OF PATHOLOGY AND GENOMIC MEDICINE Specimen Plasma specimen Performing Organization Address City/[facility] Phone Number [facility] DEPARTMENT OF PATHOLOGY AND [address] [place] [id number] [place] [address] Acetaminophen level (10/25/2016 7:35 AM) Acetaminophen level <15.0 10.0 - 30.0 ug/mL [facility] DEPARTMENT OF Comment: PATHOLOGY AND GENOMIC Therapeutic 10-30 ug/mL MEDICINE Possible Toxicity 150-200 ug/mL Probable Toxicity >200 ug/mL Specimen Plasma specimen Performing Organization Address City/[facility] Phone Number [facility] DEPARTMENT OF PATHOLOGY AND [address] [place] [id number] [place] [address] Salicylate level (10/25/2016 7:35 AM) Salicylate <3.0 3.0 - 30.0 mg/dL [facility] DEPARTMENT OF PATHOLOGY AND GENOMIC MEDICINE Specimen Plasma specimen Performing Organization Address City/[facility] Phone Number [facility] DEPARTMENT OF PATHOLOGY AND [address] [place] [phone] [facility] Comprehensive metabolic panel (10/25/2016 7:35 AM) Sodium 144 135 - 148 mEq/L [facility] DEPARTMENT OF PATHOLOGY AND GENOMIC MEDICINE Potassium 3.2 (L) 3.5 - 5.0 mEq/L [facility] DEPARTMENT OF PATHOLOGY AND GENOMIC MEDICINE Chloride 104 98 - 112 mEq/L [facility] DEPARTMENT OF PATHOLOGY AND GENOMIC MEDICINE CO2 19 (L) 24 - 31 mEq/L [facility] DEPARTMENT OF PATHOLOGY AND GENOMIC MEDICINE Anion gap 21 (H) 7 - 15 mEq/L [facility] DEPARTMENT OF Comment: PATHOLOGY AND GENOMIC Starting from August , anion gap calculation MEDICINE no longer incorporates potassium. Please note the change. BUN 9 6 - 20 mg/dL [facility] DEPARTMENT OF PATHOLOGY AND GENOMIC MEDICINE Creatinine 0.6 0.5 - 0.9 mg/dL [facility] DEPARTMENT OF PATHOLOGY AND GENOMIC MEDICINE Glucose 109 (H) 65 - 99 mg/dL [facility] DEPARTMENT OF PATHOLOGY AND GENOMIC MEDICINE Calcium 9.2 8.3 - 10.2 mg/dL [facility] DEPARTMENT OF PATHOLOGY AND GENOMIC MEDICINE Protein 8.3 6.3 - 8.3 g/dL [facility] DEPARTMENT OF Comment: PATHOLOGY AND GENOMIC [place] 4.6-7.0 g/dL MEDICINE 1 week 4.4-7.6 g/dL 7 months-1year5.1-7.3 g/dL 1-2 years5.6-7.5 g/dL >3 years6.0-8.0 g/dL 18-150 6.3-8.3 g/dL Albumin 4.2 3.5 - 5.0 g/dL [facility] DEPARTMENT OF PATHOLOGY AND GENOMIC MEDICINE A/G ratio 1.0 0.7 - 3.8 [facility] DEPARTMENT OF PATHOLOGY AND GENOMIC MEDICINE Alkaline phosphatase 90 35 - 104 U/L [facility] DEPARTMENT OF PATHOLOGY AND GENOMIC MEDICINE AST 22 10 - 35 U/L [facility] DEPARTMENT OF PATHOLOGY AND GENOMIC MEDICINE ALT 16 5 - 50 U/L [facility] DEPARTMENT OF PATHOLOGY AND GENOMIC MEDICINE Total bilirubin 0.3 0.0 - 1.2 mg/dL [facility] DEPARTMENT OF PATHOLOGY AND GENOMIC MEDICINE Specimen Plasma specimen Performing Organization Address [place] [place] Number [facility] DEPARTMENT OF PATHOLOGY AND [address] [place] [address] [facility] ECG 12 lead (10/25/2016 7:33 AM) Ventricular rate 91 [facility] M[facility] Atrial rate 91 [facility] LA interval 162 [facility] QRSD interval 94 [facility] QT interval 364 [facility] QTC interval 447 [facility] P axis 1 47 [facility] QRS axis 1 85 [facility] T wave axis 58 [facility] EKG impression Normal sinus rhythm-Normal ECG-No previous [facility] ECGs available- Performing Organization Address [place] Phone Number [facility] [place] [address] [place] [address] after 10/25/2016 Insurance Payer Benefit Plan / Group Subscriber ID Type Phone Address [facility] x[facility] PPO [facility] [facility] xxxxxxxx Behavioral Health Home: [facility] JEREL ORR [phone] [address]
--- NOTE | 2017-10-26 11:04 | ER ---
Nurse's Notes [facility] Name: Linda Oneal Age: 22 yrs Sex: Female : 1995 Arrival Date: 10/26/2017 Time: 10:00 Bed 14 Private MD: Diagnosis: Dysuria Presentation: 10/26 10:01 Presenting complaint: Patient states: this morning, i started having vaginal pain, hj (suprapubic pain); i frequently pee and it meyer with i pee; reports chills; denies nausea and vomiting; reports yellowish vaginal discharge;. Transition of care: patient was not received from another setting of care. Onset of symptoms was October 26, 2017. Risk Assessment: Do you want to hurt yourself or someone else? Patient reports no desire to harm self or others. Initial Sepsis Screen: Does the patient meet any 2 criteria? No. Patient's initial sepsis screen is negative. Does the patient have a suspected source of infection? No. Patient's initial sepsis screen is negative. Care prior to arrival: None. 10:01 Method Of Arrival: Ambulatory 10:01 Acuity: FROYLAN 4 hj Triage Assessment: 10:03 General: Appears in no apparent distress. uncomfortable, Behavior is calm, cooperative, hj appropriate for age. Pain: Complains of pain in groin and suprapubic area Pain currently is 5 out of 10 on a pain scale. 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 - Social history:: Smoking status: Patient/guardian denies using tobacco, Patient/guardian denies using alcohol. - Ebola Screening: : Patient negative for fever greater than or equal to 101.5 degrees Fahrenheit, and additional compatible Ebola Virus Disease symptoms Patient denies exposure to infectious person Patient denies travel to an Ebola-affected area in the 21 days before illness onset. Screenin:04 Abuse screen: Denies threats or abuse. Denies injuries from another. Nutritional hj screening: No deficits noted. Tuberculosis screening: No symptoms or risk factors identified. Fall Risk None identified. Assessment: 10:10 General: Appears in no apparent distress. well groomed, Behavior is calm, cooperative, tw2 appropriate for age. Pain: Complains of pain in suprapubic area. Neuro: Level of Consciousness is awake, alert, obeys commands, Oriented to person, place, time, situation. Cardiovascular: Denies chest pain, shortness of breath, Heart tones S1 S2 Capillary refill < 3 seconds Patient's skin is warm and dry. Respiratory: Airway is patent Respiratory effort is even, unlabored, Respiratory pattern is regular, symmetrical, Breath sounds are clear bilaterally. GI: No signs and/or symptoms were reported involving the gastrointestinal system. Abdomen is flat, Bowel sounds present X 4 quads. : Reports burning with urination, since this morning urgency, urinary frequency. EENT: No signs and/or symptoms were reported regarding the EENT system. Derm: Skin is intact, is healthy with good turgor, Skin is dry, Skin temperature is warm. Musculoskeletal: Range of motion: intact in all extremities. 11:37 Reassessment: Patient appears in no apparent distress at this time. No changes from tw2 previously documented assessment. Patient and/or family updated on plan of care and expected duration. Pain level reassessed. Patient is alert, oriented x 3, equal unlabored respirations, skin warm/dry/pink. 12:00 Reassessment: Patient appears in no apparent distress at this time. No changes from tw2 previously documented assessment. Patient and/or family updated on plan of care and expected duration. Pain level reassessed. Patient is alert, oriented x 3, equal unlabored respirations, skin warm/dry/pink. Vital Signs: 10:04 BP 114 / 67; Pulse 75; Resp 18; Temp 98.7(O); Pulse Ox 100% on R/A; Weight 68.04 kg; hj Height 5 ft. 0 in. (152.40 cm); Pain 7/10; 11:36 BP 140 / 84; Pulse 89; Resp 17; Pulse Ox 100% on R/A; tw2 10:04 Body Mass Index 29.30 (68.04 kg, 152.40 cm) ED Course: 10:00 Patient arrived in ED. jb7 10:03 Triage completed. hj 10:04 Arm band placed on left wrist. hj 10:07 Perez, Martina, RN is Primary Nurse. tw2 10:07 Bed in low position. Call light in reach. Pulse ox on. NIBP on. tw2 10:17 Emmy Barraza FNP-C [facility]. snw 10:17 Ney Tate MD is Attending Physician. snw 10:22 Urine Culture Sent. tw2 10:22 Urine Microscopic Only Sent. tw2 11:20 Awaiting: post abx observation prior to discharge. tw2 11:42 Awaiting: abx observation prior to discharge, making sure pt does not vomit after admin.tw2 12:01 No provider procedures requiring assistance completed. Patient did not have IV access tw2 during this emergency room visit. Administered Medications: 11:18 Drug: Rocephin (cefTRIAXone) 500 mg Route: IM; Site: left deltoid; tw2 11:35 Follow up: Response: No adverse reaction tw2 11:18 Drug: Zofran 4 mg Route: PO; tw2 11:58 Follow up: Response: No adverse reaction tw2 11:35 Drug: Zithromax 1 grams Route: PO; tw2 11:58 Follow up: Response: No adverse reaction tw2 11:35 Drug: Flagyl 2 grams Route: PO; tw2 11:58 Follow up: Response: No adverse reaction tw2 11:55 Drug: Phenergan 25 mg Route: PO; tw2 11:59 Follow up: Response: No adverse reaction tw2 Outcome: 11:04 Discharge ordered by . snw 12:01 Discharged to home ambulatory. tw2 12:01 Condition: stable 12:01 Discharge instructions given to patient, Instructed on discharge instructions, follow up and referral plans. Demonstrated understanding of instructions, follow-up care. 12:01 Patient left the ED. tw2 Signatures: Emmy Barraza FNP-C [employer] PERSON-Csnw Jitendra Crowder RN RN Martina Perez RN RN tw2 See [email or web address] Corrections: (The following items were deleted from the chart) 10:06 10:04 Pulse 75bpm; Resp 18bpm; Pulse Ox 100% RA; Temp 98.7F Oral; 68.04 kg; Height 5 hj ft. 0 in.; BMI: 29.2; Pain 7/10; hj 10:10 10:01 Presenting complaint: Patient states: this morning, i started having vaginal hj pain, (suprapubic pain); i frequently pee and its meyer with i pee; reports chills; denies nausea and vomiting; reports yellowish vaginal discharge; hj 11:43 11:36 Awaiting lab results, Awaiting: on GC probe PRIOR to discharge. tw2 tw2
--- NOTE | 2017-10-26 11:04 | EDPHYS ---
Physician Documentation [facility] Name: Linda Oneal Age: 22 yrs Sex: Female : 1995 Arrival Date: 10/26/2017 Time: 10:00 Bed 14 Private MD: ED Physician Ney Tate HPI: 10/26 11:26 This 22 yrs old Female presents to ER via Ambulatory with complaints of Pelvic snw Pain. 11:26 Onset: The symptoms/episode began/occurred 2 day(s) ago. Associated signs and symptoms: snw Pertinent positives: dysuria. The patient has experienced a previous episode. It is unknown whether or not the patient has recently seen a physician. DOMINATRIX: 10:04 LMP 10/04/2017 hj Historical: - Allergies: 10:03 No Known Allergies; hj - Home Meds: 10:03 None [Active]; hj - PMHx: 10:03 Anxiety; Ovarian cyst; PID; hj - PSHx: 10:03 Lumpectomy; hj - Immunization history:: Adult Immunizations up to date. - Social history:: Smoking status: Patient/guardian denies using tobacco, Patient/guardian denies using alcohol. - Ebola Screening: : Patient negative for fever greater than or equal to 101.5 degrees Fahrenheit, and additional compatible Ebola Virus Disease symptoms Patient denies exposure to infectious person Patient denies travel to an Ebola-affected area in the 21 days before illness onset. ROS: 11:24 Constitutional: Negative for fever, chills, and weight loss, Eyes: Negative for injury, snw pain, redness, and discharge, ENT: Negative for injury, pain, and discharge, Neck: Negative for injury, pain, and swelling, Cardiovascular: Negative for chest pain, palpitations, and edema, Respiratory: Negative for shortness of breath, cough, wheezing, and pleuritic chest pain, Abdomen/GI: Negative for abdominal pain, nausea, vomiting, diarrhea, and constipation, Back: Negative for injury and pain, MS/Extremity: Negative for injury and deformity, Skin: Negative for injury, rash, and discoloration, Neuro: Negative for headache, weakness, numbness, tingling, and seizure. 11:24 : Positive for urinary symptoms, vaginal discharge, hx of STI. Exam: 11:24 Constitutional: This is a well developed, well nourished patient who is awake, alert, snw and in no acute distress. Head/Face: Normocephalic, atraumatic. Eyes: Pupils equal round and reactive to light, extra-ocular motions intact. Lids and lashes normal. Conjunctiva and sclera are non-icteric and not injected. Cornea within normal limits. Periorbital areas with no swelling, redness, or edema. ENT: Nares patent. No nasal discharge, no septal abnormalities noted. Tympanic membranes are normal and external auditory canals are clear. Oropharynx with no redness, swelling, or masses, exudates, or evidence of obstruction, uvula midline. Mucous membranes moist. Neck: Trachea midline, no thyromegaly or masses palpated, and no cervical lymphadenopathy. Supple, full range of motion without nuchal rigidity, or vertebral point tenderness. No Meningismus. Chest/axilla: Normal chest wall appearance and motion. Nontender with no deformity. No lesions are appreciated. Cardiovascular: Regular rate and rhythm with a normal S1 and S2. No gallops, murmurs, or rubs. Normal PMI, no JVD. No pulse deficits. Respiratory: Lungs have equal breath sounds bilaterally, clear to auscultation and percussion. No rales, rhonchi or wheezes noted. No increased work of breathing, no retractions or nasal flaring. Abdomen/GI: Soft, non-tender, with normal bowel sounds. No distension or tympany. No guarding or rebound. No evidence of tenderness throughout. mild suprapubic tenderness Back: No spinal tenderness. No costovertebral tenderness. Full range of motion. Skin: Warm, dry with normal turgor. Normal color with no rashes, no lesions, and no evidence of cellulitis. MS/ Extremity: Pulses equal, no cyanosis. Neurovascular intact. Full, normal range of motion. Neuro: Awake and alert, GCS 15, oriented to person, place, time, and situation. Cranial nerves II-XII grossly intact. Motor strength 5/5 in all extremities. Sensory grossly intact. Cerebellar exam normal. Normal gait. Psych: Awake, alert, with orientation to person, place and time. Behavior, mood, and affect are within normal limits. Vital Signs: 10:04 BP 114 / 67; Pulse 75; Resp 18; Temp 98.7(O); Pulse Ox 100% on R/A; Weight 68.04 kg; hj Height 5 ft. 0 in. (152.40 cm); Pain 7/10; 11:36 BP 140 / 84; Pulse 89; Resp 17; Pulse Ox 100% on R/A; tw2 10:04 Body Mass Index 29.30 (68.04 kg, 152.40 cm) hj MDM: 10:17 Patient medically screened. snw 11:25 Data reviewed: vital signs, nurses notes. Data interpreted: Pulse oximetry: on room air snw is 100 %. Interpretation: normal. Counseling: I had a detailed discussion with the patient and/or guardian regarding: the historical points, exam findings, and any diagnostic results supporting the discharge/admit diagnosis, the need for outpatient follow up, to return to the emergency department if symptoms worsen or persist or if there are any questions or concerns that arise at home. Special discussion: Based on the history and exam findings, there is no indication for further emergent testing or inpatient evaluation. I discussed with the patient/guardian the need to see the OB Gyne specialist for further evaluation of the symptoms. I discussed with the patient/guardian the need to see the primary care provider for further evaluation of the symptoms. 10/26 10:19 Order name: Urine Culture snw 10/26 10:19 Order name: Urine Microscopic Only; Complete Time: 11:24 snw 10/26 10:26 Order name: Urine Dipstick--Ancillary (enter results); Complete Time: 11:24 bd 10/26 10:26 Order name: Urine --Ancillary (enter results); Complete Time: 11:24 bd 10/26 10:19 Order name: Urine Dipstick-Ancillary (obtain specimen); Complete Time: 10:21 snw Administered Medications: 11:18 Drug: Rocephin (cefTRIAXone) 500 mg Route: IM; Site: left deltoid; tw2 11:35 Follow up: Response: No adverse reaction tw2 11:18 Drug: Zofran 4 mg Route: PO; tw2 11:58 Follow up: Response: No adverse reaction tw2 11:35 Drug: Zithromax 1 grams Route: PO; tw2 11:58 Follow up: Response: No adverse reaction tw2 11:35 Drug: Flagyl 2 grams Route: PO; tw2 11:58 Follow up: Response: No adverse reaction tw2 11:55 Drug: Phenergan 25 mg Route: PO; tw2 11:59 Follow up: Response: No adverse reaction tw2 Disposition: 13:06 Co-signature as Attending Physician, Ney Tate MD. Disposition: 10/26/17 11:04 Discharged to Home. Impression: Dysuria. - Condition is Stable. - Discharge Instructions: Dysuria, Sexually Transmitted Disease. - Medication Reconciliation Form, Thank You Letter, Antibiotic Education, Prescription Opioid Use, Work release form form. - Follow up: Private Physician; When: 1 - 2 days; Reason: Recheck today's complaints, Continuance of care, Re-evaluation by your physician. Signatures: Dispatcher [employer] Emmy Barraza, MARU-C PIPE ORGAN TUNER AND REPAIRER-Csnw Jitendra Crowder, RN RN Martina Perez RN RN 2 Ney Tate MD MD Corrections: (The following items were deleted from the chart) 12:01 11:04 10/26/2017 11:04 Discharged to Home. Impression: Dysuria. Condition is Stable. tw2 Forms are Work release form, Medication Reconciliation Form, Thank You Letter, Antibiotic Education, Prescription Opioid Use. Follow up: Private Physician; When: 1 - 2 days; Reason: Recheck today's complaints, Continuance of care, Re-evaluation by your physician. snw
[2017-10-26] MEDS ORDERED: AZITHROMYCIN 250 MG TAB ONE (11:10)
[2017-10-26] MEDS ORDERED: metroNIDAZOLE 500 MG TABLET ONE (11:10)
[2017-10-26] MEDS ORDERED: ONDANSETRON 4 MG (ODT) TAB ONE (11:10)
[2017-10-26] MEDS ORDERED: CEFTRIAXONE 500 MG/VIAL ONE (11:10)
[2017-10-26] MEDS ORDERED: WATER FOR INJ,STERILE 10 ML ONE (11:11)
[2017-10-26 11:19] LABS: Urine Bacteria 20-50 /HPF (<20); Urine Culture Reflex Order NOT NEEDED; Urine Mucus 3+ /HPF (NONE SEEN); Urine RBC 20-50 /HPF (NONE SEEN)
[2017-10-26 11:21] LABS: Urine Blood 2+ (NEG); Urine Glucose NEGATIVE (NEG); Urine Protein 2+ (NEG); Urine Specific Gravity >1.030 (1.005-1.030)
[2017-10-26] MEDS ORDERED: PROMETHAZINE 25 MG TABLET ONE (11:57)
[2017-10-26 12:27] VITALS: TEMP 98.7; O2SAT 100
[2017-10-26 12:28] VITALS: BP 140/84
== END 2017-10-26 12:01 | disposition home or self-care (01) ==
LOC: ER 09:55
DX: R30.0 Dysuria (principal)
CPT/HCPCS: 81003; 81015; 81025; 87086; 87088; 96372; 99283; J0696

== ENCOUNTER 2017-11-16 03:17 | Emergency (ER) | payer OTHER ==
--- OUTSIDE RECORDS SUMMARY | 2017-11-16 03:20 | XMS REPORT | Clinical Summary ---
:1995 Author Organization [facility] Address [address] [place] [address] Care Team Providers Name Role Phone Asked, No Pcp Primary Care Provider Unavailable Allergies No Known Allergies Current Medications Prescription Sig. Disp. Refills Start Date End Date Status ibuprofen Take 400 mg by Active (ADVIL,MOTRIN) 400 mouth as needed MG tablet for headaches. multivitamin with Take 1 tablet by Active minerals tablet mouth daily. Takes One-A-Day women's hydrOXYzine (ATARAX) Take 1 tablet (10 7 tablet 0 10/28/2016 11/27/2016 10 MG mg total) by tabletIndications: mouth 3 (three) Anxiety times a day as needed for anxiety for up to 30 days Indications: Anxiety. citalopram (CeleXA) Take 1 tablet (20 14 tablet 0 10/28/2016 11/27/2016 20 MG mg total) by tabletIndications: mouth every Major Depressive morning for 30 Disorder days Indications: Major Depressive Disorder. traZODone (DESYREL) Take 1 tablet (50 14 tablet 0 10/28/2016 11/27/2016 50 MG mg total) by tabletIndications: mouth nightly as insomnia associated needed for sleep with depression for up to 30 days Indications: insomnia associated with depression. Active Problems Problem Noted Date Emotionally unstable borderline personality disorder in adult 10/26/2016 PID (acute pelvic inflammatory disease) 10/26/2016 Severe episode of recurrent major depressive disorder, without psychotic 10/25 features Encounters Date Type Specialty Care Team Description 12/18/2016 Refill Neurosurgery Galilea Macedo MD after 11/15/2016 Family History Medical History Relation Name Comments Dementia Brother Bipolar disorder Father Relation Name Status Comments Brother Alive Father Social History Tobacco Use Types Packs/Day Years Used Date Never Smoker Alcohol Use Drinks/Week oz/Week Comments Yes 2 Shots of liquor 1.2 Pt states drinks 2 shots per month Sex Assigned at Date Recorded Not on file Last Filed Vital Signs Not on file Plan of Treatment Not on file Results Not on fileafter 11/15/2016 Insurance Payer Benefit Plan / Group Subscriber ID Type Phone Address [facility] CHOICE xxxxxxxx PPO [employer] [facility] xxxxxxxx Behavioral Health Home: [address] A y [phone] [place] [phone]
[2017-11-16] MEDS ORDERED: FENTANYL CITR 100 MCG/2 ML ONE (03:54)
[2017-11-16] MEDS ORDERED: ONDANSETRON 4 MG/2 ML VIAL ONE (03:54)
[2017-11-16] MEDS ORDERED: CEFTRIAXONE/SWI 1gm 1 GM/10 ML SYR ONE (03:55)
[2017-11-16] MEDS ORDERED: NA CHLORIDE 0.9% 1,000 ML ONE (03:55)
[2017-11-16] MEDS ORDERED: CIPROFLOXACIN HCL 500 MG TAB ONE (04:10)
[2017-11-16 04:30] LABS: Absolute Monocytes 0.6 K/uL (0.1-1.3); Absolute Neutrophil 4.5 K/uL (1.8-8.0); Basophils % 0.5 % (0-1.3); Eosinophils % 4.5 % (0-4.4); Hematocrit 36.5 % (36.0-45.0); Lymphocytes % 27.4 % (15.3-44.8); MCH 29.7 pg (27.0-35.0); MCV 87.3 fL (80-100); MPV 10.9 fL (7.6-11.3); Monocytes % 7.7 % (3.3-12.3); RBC Red Blood Cell Count 4.18 M/uL (3.86-4.86)
[2017-11-16 04:50] LABS: ALT/SGPT 20 U/L (12-78); AST/SGOT 17 U/L (15-37); Albumin 3.9 g/dL (3.4-5.0); Alkaline Phosphatase 85 U/L (45-117); BUN Blood Urea Nitrogen 14 mg/dL (7-18); Bicarbonate 23 mmol/L (21-32); Bilirubin Direct < 0.1 mg/dL (0-0.2); Bilirubin Total 0.3 mg/dL (0.2-1.0); Glucose Level 95 mg/dL (74-106); Potassium 4.2 mmol/L (3.5-5.1); Protein, Total 7.3 g/dL (6.4-8.2); Sodium Level 140 mmol/L (136-145)
[2017-11-16 05:30] LABS: Urine Culture Reflex Order NOT NEEDED
[2017-11-16 05:31] LABS: Urine Bacteria <20 /HPF (<20)
[2017-11-16 05:32] LABS: Urine Blood 2+ (NEG); Urine Glucose NEGATIVE (NEG); Urine Protein 1+ (NEG); Urine Specific Gravity 1.025 (1.005-1.030)
--- NOTE | 2017-11-16 06:46 | EDPHYS ---
Physician Documentation [facility] Name: Linda Oneal Age: 22 yrs Sex: Female : 1995 Arrival Date: 11/16/2017 Time: 03:20 Bed 6 Private MD: ED Physician Julio An HPI: 11/16 03:49 This 22 yrs old Female presents to ER via Ambulatory with complaints of sergio Vaginal Pain, Low Back Pain. 03:49 The patient presents with urinary symptoms, dysuria, frequency, hematuria. Onset: The sergio symptoms/episode began/occurred 5 day(s) ago. Modifying factors: The symptoms are alleviated by nothing, the symptoms are aggravated by nothing. Associated signs and symptoms: The patient has no apparent associated signs or symptoms. Severity of symptoms: At their worst the symptoms were mild, moderate, in the emergency department the symptoms are unchanged. The patient is sexually active, reportedly has a single partner. The patient has experienced similar episodes in the past, multiple times. 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 - Social history:: Smoking status: Patient/guardian denies using tobacco. - Ebola Screening: : No symptoms or risks identified at this time. - Family history:: not pertinent. ROS: 03:49 Constitutional: Negative for fever, chills, and weight loss, Eyes: Negative for injury, sergio pain, redness, and discharge, ENT: Negative for injury, pain, and discharge, Neck: Negative for injury, pain, and swelling, Cardiovascular: Negative for chest pain, palpitations, and edema, Respiratory: Negative for shortness of breath, cough, wheezing, and pleuritic chest pain, Back: Negative for injury and pain, : Negative for injury, bleeding, discharge, and swelling, MS/Extremity: Negative for injury and deformity, Skin: Negative for injury, rash, and discoloration, Neuro: Negative for headache, weakness, numbness, tingling, and seizure, Psych: Negative for depression, anxiety, suicide ideation, homicidal ideation, and hallucinations, Allergy/Immunology: Negative for hives, rash, and allergies, Endocrine: Negative for neck swelling, polydipsia, polyuria, polyphagia, and marked weight changes, Hematologic/Lymphatic: Negative for swollen nodes, abnormal bleeding, and unusual bruising. 03:49 Abdomen/GI: Positive for abdominal pain, abdominal cramps, of the right lower quadrant and left lower quadrant. Exam: 03:49 Constitutional: This is a well developed, well nourished patient who is awake, alert, sergio and in no acute distress. Head/Face: Normocephalic, atraumatic. Eyes: Pupils equal round and reactive to light, extra-ocular motions intact. Lids and lashes normal. Conjunctiva and sclera are non-icteric and not injected. Cornea within normal limits. Periorbital areas with no swelling, redness, or edema. ENT: Nares patent. No nasal discharge, no septal abnormalities noted. Tympanic membranes are normal and external auditory canals are clear. Oropharynx with no redness, swelling, or masses, exudates, or evidence of obstruction, uvula midline. Mucous membranes moist. Neck: Trachea midline, no thyromegaly or masses palpated, and no cervical lymphadenopathy. Supple, full range of motion without nuchal rigidity, or vertebral point tenderness. No Meningismus. Chest/axilla: Normal chest wall appearance and motion. Nontender with no deformity. No lesions are appreciated. Cardiovascular: Regular rate and rhythm with a normal S1 and S2. No gallops, murmurs, or rubs. Normal PMI, no JVD. No pulse deficits. Respiratory: Lungs have equal breath sounds bilaterally, clear to auscultation and percussion. No rales, rhonchi or wheezes noted. No increased work of breathing, no retractions or nasal flaring. Back: No spinal tenderness. No costovertebral tenderness. Full range of motion. Skin: Warm, dry with normal turgor. Normal color with no rashes, no lesions, and no evidence of cellulitis. MS/ Extremity: Pulses equal, no cyanosis. Neurovascular intact. Full, normal range of motion. Neuro: Awake and alert, GCS 15, oriented to person, place, time, and situation. Cranial nerves II-XII grossly intact. Motor strength 5/5 in all extremities. Sensory grossly intact. Cerebellar exam normal. Normal gait. Psych: Awake, alert, with orientation to person, place and time. Behavior, mood, and affect are within normal limits. 03:49 Abdomen/GI: Inspection: abdomen appears normal, Bowel sounds: normal, Palpation: mild abdominal tenderness, in the suprapubic area, right lower quadrant and left lower quadrant, Liver: no appreciated palpable abnormalities, Hernia: not appreciated. Vital Signs: 03:38 BP 120 / 66; Pulse 75; Resp 18; Temp 99.2(O); Pulse Ox 97% on R/A; Weight 70.31 kg (R); ak1 Height 5 ft. 0 in. (152.40 cm); Pain 8/10; 04:34 BP 98 / 61; Pulse 64; Resp 16; Pulse Ox 98% on R/A; ak1 06:18 BP 102 / 66; Pulse 62; Resp 16; Temp 97.8(O); Pulse Ox 98% on R/A; Pain 0/10; ak1 03:38 Body Mass Index 30.27 (70.31 kg, 152.40 cm) ak1 MDM: 03:38 Patient medically screened. [facility] 03:51 Data reviewed: vital signs, nurses notes, lab test result(s), radiologic studies, CT sergio scan. 11/16 03:48 Order name: Basic Metabolic Panel; Complete Time: 05:03 [facility] 11/16 03:48 Order name: CBC with Diff; Complete Time: 04:44 [facility] 11/16 03:48 Order name: Creatinine for Radiology; Complete Time: 05:03 [facility] 11/16 03:48 Order name: Hepatic Function; Complete Time: 05:03 [facility] 11/16 03:48 Order name: Urine Microscopic Only; Complete Time: 05:57 [facility] 11/16 03:48 Order name: Urine Culture [facility] 11/16 03:48 Order name: CT Abd/Pelvis - W/Contrast [facility] 11/16 03:49 Order name: Urine Dipstick--Ancillary (enter results); Complete Time: 05:57 [facility] 11/16 03:49 Order name: Urine --Ancillary (enter results); Complete Time: 05:57 [facility] 11/16 04:50 Order name: Sed Rate; Complete Time: 05:57 [facility] 11/16 03:48 Order name: Urine Test (obtain specimen); Complete Time: 04:03 [facility] 11/16 03:48 Order name: IV Saline Lock; Complete Time: 04:03 [facility] 11/16 03:48 Order name: Labs collected and sent; Complete Time: 04:04 [facility] 11/16 03:48 Order name: Urine Dipstick-Ancillary (obtain specimen); Complete Time: 04:04 [facility] Administered Medications: 04:02 Drug: Rocephin - (cefTRIAXone) 1 grams Route: IVPB; Infused Over: 30 mins; Site: right ak1 antecubital; 05:24 Follow up: IV Status: Completed infusion ak1 06:48 Follow up: IV Status: Completed infusion ak1 04:03 Drug: NS 0.9% 1000 ml Route: IV; Rate: 1 bolus; Site: right antecubital; ak1 05:24 Follow up: IV Status: Completed infusion ak1 06:48 Follow up: IV Status: Completed infusion ak1 04:03 Drug: fentaNYL (PF) 25 mcg Route: IVP; Site: right antecubital; ak1 05:24 Follow up: Response: No adverse reaction ak1 06:48 Follow up: Response: No adverse reaction ak1 04:03 Drug: Zofran 4 mg Route: IVP; Site: right antecubital; ak1 05:23 Follow up: Response: No adverse reaction ak1 06:47 Follow up: Response: No adverse reaction ak1 04:08 Drug: Cipro 500 mg Route: PO; ak1 05:23 Follow up: Response: No adverse reaction ak1 06:48 Follow up: Response: No adverse reaction ak1 06:46 Not Given (Patient Refused): fentaNYL (PF) 25 mcg IVP once ak1 Disposition: 11/16/17 06:45 Discharged to Home. Impression: Cystitis, Pelvic and perineal pain - pelvic congestive syndrome. - Condition is Stable. - Discharge Instructions: Abdominal Pain, Adult, Dysuria, Pelvic Pain, Female, [id number]. - Prescriptions for Pyridium 200 mg Oral Tablet - take 1 tablet by ORAL route every 8 hours for 3 days; 9 tablet. Tylenol- Codeine #3 300-30 mg Oral Tablet - take 2 tablet by ORAL route every 6 hours As needed; 30 tablet. Cipro 500 mg Oral Tablet - take 1 tablet by ORAL route every 12 hours for 7 days; 14 tablet. Bactrim DS 800- 160 mg Oral Tablet - take 1 tablet by ORAL route every 12 hours for 5 days; 10 tablet. - Medication Reconciliation Form, Thank You Letter, Antibiotic Education, Prescription Opioid Use form. - Follow up: Private Physician; When: 2 - 3 days; Reason: Recheck today's complaints, Continuance of care, Re-evaluation by your physician. Follow up: Karlo Walsh; When: 2 - 3 days; Reason: Recheck today's complaints, Continuance of care, Re-evaluation by your physician. Follow up: Jennifer Tillman; When: 2 - 3 days; Reason: Recheck today's complaints, Continuance of care, Re-evaluation by your physician. - Problem is new. - Symptoms have improved. Signatures: Dispatcher [employer] EDMS Julio An MD MD cha Krenek, Amber RN RN ak1 Corrections: (The following items were deleted from the chart) 05:32 03:50 UA MICROSCOPIC+U.LAB.BRZ ordered. [facility] EDMS 05:32 03:50 Urine Culture+BA.LAB.BRZ ordered. [facility] EDMS 06:55 06:45 11/16/2017 06:45 Discharged to Home. Impression: Cystitis; Pelvic and perineal ak1 pain - pelvic congestive syndrome. Condition is Stable. Discharge Instructions: Abdominal Pain, Adult, Dysuria, Pelvic Pain, Female, [id number]. Prescriptions for Pyridium 200 mg Oral Tablet - take 1 tablet by ORAL route every 8 hours for 3 days; 9 tablet, Tylenol-Codeine #3 300-30 mg Oral Tablet - take 2 tablet by ORAL route every 6 hours As needed; 30 tablet, Cipro 500 mg Oral Tablet - take 1 tablet by ORAL route every 12 hours for 7 days; 14 tablet, Bactrim DS 800-160 mg Oral Tablet - take 1 tablet by ORAL route every 12 hours for 5 days; 10 tablet. and Forms are Medication Reconciliation Form, Thank You Letter, Antibiotic Education, Prescription Opioid Use. Follow up: Private Physician; When: 2 - 3 days; Reason: Recheck today's complaints, Continuance of care, Re-evaluation by your physician. Follow up: Karlo Walsh; When: 2 - 3 days; Reason: Recheck today's complaints, Continuance of care, Re-evaluation by your physician. Follow up: Jennifer Kadiyala; When: 2 - 3 days; Reason: Recheck today's complaints, Continuance of care, Re-evaluation by your physician. Problem is new. Symptoms have improved. sergio
--- NOTE | 2017-11-16 06:46 | ER ---
Nurse's Notes [facility] Name: Linda Oneal Age: 22 yrs Sex: Female : 1995 Arrival Date: 11/16/2017 Time: 03:20 Bed 6 Private MD: Diagnosis: Cystitis;Pelvic and perineal pain-pelvic congestive syndrome Presentation: 11/16 03:30 Presenting complaint: Patient states: burning with urination X1 week. pt c/o vaginal ak1 spotting X1 week. pt c/o lower back pain X1 week. pt c/o pelvic pain X1 week. pt stated she started Tylenol with codeine yesterday, last dose 2330. Transition of care: patient was not received from another setting of care. Onset of symptoms is unknown. Risk Assessment: Do you want to hurt yourself or someone else? Patient reports no desire to harm self or others. Initial Sepsis Screen: Does the patient meet any 2 criteria? No. Patient's initial sepsis screen is negative. Does the patient have a suspected source of infection? No. Patient's initial sepsis screen is negative. Care prior to arrival: None. 03:30 Method Of Arrival: Ambulatory ak1 03:30 Acuity: FROYLAN 3 ak1 Triage Assessment: 03:32 General: Appears in no apparent distress. Behavior is calm, cooperative. Pain: ak1 Complains of pain in suprapubic area, lower back. EENT: No signs and/or symptoms were reported regarding the EENT system. Neuro: No deficits noted. Cardiovascular: No deficits noted. Respiratory: No deficits noted. GI: No signs and/or symptoms were reported involving the gastrointestinal system. : Reports burning with urination, cramping, pain in lower back vaginal bleeding that is spotty. Derm: No signs and/or symptoms reported regarding the dermatologic system. Musculoskeletal: No signs and/or symptoms reported regarding the musculoskeletal system. 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 - Social history:: Smoking status: Patient/guardian denies using tobacco. - Ebola Screening: : No symptoms or risks identified at this time. - Family history:: not pertinent. Screenin:33 Abuse screen: Denies threats or abuse. Denies injuries from another. Nutritional ak1 screening: No deficits noted. Tuberculosis screening: No symptoms or risk factors identified. Fall Risk None identified. Assessment: 03:39 Reassessment: Patient appears in no apparent distress at this time. No changes from ak1 previously documented assessment. Patient and/or family updated on plan of care and expected duration. Pain level reassessed. Patient is alert, oriented x 3, equal unlabored respirations, skin warm/dry/pink. see triage assessment. General: Appears in no apparent distress. 05:15 Reassessment: Patient appears in no apparent distress at this time. No changes from ak1 previously documented assessment. Patient and/or family updated on plan of care and expected duration. Pain level reassessed. Patient is alert, oriented x 3, equal unlabored respirations, skin warm/dry/pink. Patient states symptoms have improved. 06:36 Reassessment: Patient appears in no apparent distress at this time. No changes from ak1 previously documented assessment. Patient and/or family updated on plan of care and expected duration. Pain level reassessed. Patient is alert, oriented x 3, equal unlabored respirations, skin warm/dry/pink. Vital Signs: 03:38 BP 120 / 66; Pulse 75; Resp 18; Temp 99.2(O); Pulse Ox 97% on R/A; Weight 70.31 kg (R); ak1 Height 5 ft. 0 in. (152.40 cm); Pain 8/10; 04:34 BP 98 / 61; Pulse 64; Resp 16; Pulse Ox 98% on R/A; ak1 06:18 BP 102 / 66; Pulse 62; Resp 16; Temp 97.8(O); Pulse Ox 98% on R/A; Pain 0/10; ak1 03:38 Body Mass Index 30.27 (70.31 kg, 152.40 cm) ak1 ED Course: 03:20 Patient arrived in ED. al2 03:30 Faye Chun, RN is Primary Nurse. ak1 03:31 Triage completed. ak1 03:32 Arm band placed on Patient placed in an exam room, on a stretcher, Patient notified of ak1 wait time. 03:34 Patient has correct armband on for positive identification. Bed in low position. Call ak1 light in reach. Side rails up X 1. Adult w/ patient. Pulse ox on. NIBP on. 03:38 Julio An MD is Attending Physician. sergio 04:00 robotics testing technician contacted, pt finished oral contrast. ak1 04:04 Initial lab(s) drawn, by me, sent to lab. Urine collected: clean catch specimen. ak1 Inserted saline lock: 20 gauge in right antecubital area, using aseptic technique. Blood collected. 05:15 No provider procedures requiring assistance completed. ak1 05:[address] via wheelchair. kw1 05:43 CT Abd/Pelvis - W/Contrast In Process Unspecified. EDMS 05:44 CT completed. Patient tolerated procedure well. Patient moved back from CT. kw1 06:45 Karlo Walsh MD is Referral Physician. sergio 06:45 Jennifer Tillman MD is Referral Physician. sergio 06:51 IV discontinued, intact, bleeding controlled, No redness/swelling at site. Pressure ak1 dressing applied. Administered Medications: 04:02 Drug: Rocephin - (cefTRIAXone) 1 grams Route: IVPB; Infused Over: 30 mins; Site: right ak1 antecubital; 05:24 Follow up: IV Status: Completed infusion ak1 06:48 Follow up: IV Status: Completed infusion ak1 04:03 Drug: NS 0.9% 1000 ml Route: IV; Rate: 1 bolus; Site: right antecubital; ak1 05:24 Follow up: IV Status: Completed infusion ak1 06:48 Follow up: IV Status: Completed infusion ak1 04:03 Drug: fentaNYL (PF) 25 mcg Route: IVP; Site: right antecubital; ak1 05:24 Follow up: Response: No adverse reaction ak1 06:48 Follow up: Response: No adverse reaction ak1 04:03 Drug: Zofran 4 mg Route: IVP; Site: right antecubital; ak1 05:23 Follow up: Response: No adverse reaction ak1 06:47 Follow up: Response: No adverse reaction ak1 04:08 Drug: Cipro 500 mg Route: PO; ak1 05:23 Follow up: Response: No adverse reaction ak1 06:48 Follow up: Response: No adverse reaction ak1 06:46 Not Given (Patient Refused): fentaNYL (PF) 25 mcg IVP once ak1 Outcome: 06:45 Discharge ordered by . sergio 06:49 Discharged to home ambulatory, with family. ak1 06:49 Condition: improved 06:51 Discharge instructions given to patient, Instructed on discharge instructions, follow ak1 up and referral plans. no drinking with medication, no driving heavy equipment, medication usage, safe sex practices, control, Demonstrated understanding of instructions, follow-up care, medications, Prescriptions given X 4. 06:55 Patient left the ED. ak1 Addendum: 11/20/2017 11:36 Addendum: Culture Results: Phone call Attempt #1 at 1100. Unable to leave voice mail. a a5 14:13 Addendum: Culture Results: Phone call Attempt #2 at 1410. Also called work phone number a [phone] and they stated they don't have anybody that works there with pt's name. Signatures: Dispatcher [employer] EDJulio Anand MD MD cha Calderon, Audri, RN RN aa5 Faye Chun RN RN ak1 Rachel Hebert1 Megha Mendez2 Corrections: (The following items were deleted from the chart) 11:39 11:36 Addendum: Culture Results: Phone call Attempt #1 at 1100 aa5 aa5
[2017-11-16 07:00] VITALS: O2SAT 98
[2017-11-16 07:01] VITALS: BP 102/66; TEMP 97.8
--- NOTE | 2017-11-16 08:24 | RAD REPORT ---
EXAM DESCRIPTION: CT - Abdomen Pelvis W Contrast - 11/16/2017 6:47 am CLINICAL HISTORY: Abdominal pain. Dysuria for 1 week. COMPARISON: October 2016 TECHNIQUE: Computed axial tomography of the abdomen and pelvis was obtained. 100 cc Isovue-300 is ad ministered intravenously. Oral contrast was given.A preliminary report was generated by [employer] and reviewed prior to this dictation All CT scans are performed using dose optimization technique as appropriate and may include automated exposure control or mA/KV adjustment according to patient size. FINDINGS: The liver, spleen, pancreas, adrenals and kidneys appear unremarkable. The appendix is normal caliber. There is no evidence of diverticulitis A 21 millimeter right ovarian cyst is present with small amount of free fluid IMPRESSION: 21 millimeter right ovarian cyst with a small amount free fluid
== END 2017-11-16 06:55 | disposition home or self-care (01) ==
LOC: ER 03:17
DX: N30.90 Cystitis, unspecified without hematuria (principal); N94.89 Other specified conditions associated with female genital organs and menstrual cycle
CPT/HCPCS: 36415; 74177; 80048; 80076; 81003; 81015; 81025; 85025; 85652; 87077; 87086; 87088; 87186; 96365; 96375; 99284; J0696; J2405; J3010; J7030; Q9967

== ENCOUNTER 2018-01-15 08:07 | Emergency (ER) | payer OTHER ==
--- OUTSIDE RECORDS SUMMARY | 2018-01-15 08:09 | XMS REPORT | Clinical Summary ---
:1995 Author Organization [facility] Address [address] [place] [id number] Care Team Providers Name Role Phone Asked, No Pcp Primary Care Provider Unavailable Allergies No Known Allergies Current Medications Prescription Sig. Disp. Refills Start Date End Date Status ibuprofen (ADVIL,MOTRIN) Take 400 mg by Active 400 MG tablet mouth as needed for headaches. multivitamin with Take 1 tablet by Active minerals tablet mouth daily. 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 CHO[facility] xxxxxxxx PPO [facility] xxxxxxxx Behavioral Health Home: [address] A y [phone] SABRINA BEYER 474 [phone]
--- NOTE | 2018-01-15 10:10 | EDPHYS ---
Physician Documentation [facility] Name: Linda Oneal Age: 22 yrs Sex: Female : 1995 Arrival Date: 01/15/2018 Time: 08:09 Bed 11 Private MD: None, None ED Physician Christiano Stewart HPI: 01/15 16:46 This 22 yrs old Female presents to ER via Ambulatory with complaints of Flu kdr Symptoms. 16:46 The patient or guardian reports airway noise, cough, that is intermittent, described as kdr mild, with no sputum, difficulty breathing, flu symptoms, arthralgias, myalgias, no appetite. Onset: The symptoms/episode began/occurred suddenly, last night. Severity of symptoms: At their worst the symptoms were mild, moderate, just prior to arrival, in the emergency department the symptoms are unchanged. Modifying factors: The symptoms are alleviated by nothing, the symptoms are aggravated by exertion. Associated signs and symptoms: The patient has no apparent associated signs or symptoms, Pertinent positives: nausea, rhinorrhea, sore throat, Pertinent negatives: chest pain, diarrhea, ear ache, vomiting. The patient has not experienced similar symptoms in the past. The patient has not recently seen a physician. 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 - Social history:: Smoking status: Patient/guardian denies using tobacco. - Ebola Screening: : Patient negative for fever greater than or equal to 101.5 degrees Fahrenheit, and additional compatible Ebola Virus Disease symptoms Patient denies exposure to infectious person Patient denies travel to an Ebola-affected area in the 21 days before illness onset No symptoms or risks identified at this time. ROS: 16:46 Constitutional: Negative for fever, chills, and weight loss, Eyes: Negative for injury, kdr pain, redness, and discharge, Neck: Negative for injury, pain, and swelling, Cardiovascular: Negative for chest pain, palpitations, and edema, Respiratory: Negative for shortness of breath, cough, wheezing, and pleuritic chest pain, Abdomen/GI: Negative for abdominal pain, nausea, vomiting, diarrhea, and constipation, Back: Negative for injury and pain, MS/Extremity: Negative for injury and deformity, Skin: Negative for injury, rash, and discoloration, Neuro: Negative for headache, weakness, numbness, tingling, and seizure activity. Psych: Negative for depression, anxiety, suicide ideation, homicidal ideation, and hallucinations, Allergy/Immunology: Negative for hives, rash, and allergies, Endocrine: Negative for neck swelling, polydipsia, polyuria, polyphagia, and marked weight changes, Hematologic/Lymphatic: Negative for swollen nodes, abnormal bleeding, and unusual bruising. Exam: 16:46 Constitutional: This is a well developed, well nourished patient who is awake, alert, kdr and in no acute distress. Head/Face: Normocephalic, atraumatic. Eyes: Pupils equal round and reactive to light, extra-ocular motions intact. Lids and lashes normal. Conjunctiva and sclera are non-icteric and not injected. Cornea within normal limits. Periorbital areas with no swelling, redness, or edema. Neck: Trachea midline, no thyromegaly or masses palpated, and no cervical lymphadenopathy. Supple, full range of motion without nuchal rigidity, or vertebral point tenderness. No Meningismus. Chest/axilla: Normal chest wall appearance and motion. Nontender with no deformity. No lesions are appreciated. Cardiovascular: Regular rate and rhythm with a normal S1 and S2. No gallops, murmurs, or rubs. Normal PMI, no JVD. No pulse deficits. 16:46 ENT: External ear(s): are unremarkable, Ear canal(s): are normal, TM's: are normal, Nose: External nose: no obvious acute abnormality, Nasal septum: is midline, Nasal mucosa: edematous, moist, Mouth: is normal, Voice: is normal. Vital Signs: 08:33 BP 105 / 68; Pulse 77; Resp 16; Temp 97.6; Pulse Ox 99% on R/A; Weight 70.76 kg; Height iw 5 ft. (152.40 cm); Pain 5/10; 08:33 Body Mass Index 30.47 (70.76 kg, 152.40 cm) iw MDM: 10:09 Patient medically screened. kdr 16:46 Data reviewed: vital signs, nurses notes, lab test result(s). Counseling: I had a kdr detailed discussion with the patient and/or guardian regarding: the historical points, exam findings, and any diagnostic results supporting the discharge/admit diagnosis, lab results, the need for outpatient follow up. 01/15 08:42 Order name: Flu; Complete Time: 10: kdr 01/15 09:05 Order name: Rapid Strep; Complete Time: 10: kdr 01/15 09:34 Order name: Throat Culture EDMS Administered Medications: No medications were administered Disposition: 01/15/18 10:09 Discharged to Home. Impression: Acute upper respiratory infection, unspecified, Viral infection, unspecified, Congestion. - Condition is Stable. - Discharge Instructions: Upper Respiratory Infection, Adult, Viral Respiratory Infection, [id number]. - Prescriptions for Mucinex DM 30- 600 mg Oral tablet extended release 12 hr - take 1 tablet by ORAL route every 12 hours as needed; 20 tablet. Prednisone 20 mg Oral Tablet - take 1 tablet by ORAL route once daily for 5 days; 5 tablet. - Medication Reconciliation Form, Thank You Letter, Work release form form. - Follow up: Private Physician; When: 2 - 3 days; Reason: If symptoms return, Further diagnostic work-up, Recheck today's complaints, Continuance of care, Re-evaluation by your physician. - Problem is new. - Symptoms have improved. Signatures: Dispatcher [employer] EDTN Christiano Stewart MD MD kdr Prudence Sierra RN RN iw Corrections: (The following items were deleted from the chart) 10:20 10:09 01/15/2018 10:09 Discharged to Home. Impression: Acute upper respiratory iw infection, unspecified; Viral infection, unspecified; Congestion. Condition is Stable. Forms are Medication Reconciliation Form, Thank You Letter, Antibiotic Education, Prescription Opioid Use. Follow up: Private Physician; When: 2 - 3 days; Reason: If symptoms return, Further diagnostic work-up, Recheck today's complaints, Continuance of care, Re-evaluation by your physician. Problem is new. Symptoms have improved. kdr
--- NOTE | 2018-01-15 10:10 | ER ---
Nurse's Notes [facility] Name: Linda Oneal Age: 22 yrs Sex: Female : 1995 Arrival Date: 01/15/2018 Time: 08:09 Bed 11 Private MD: None, None Diagnosis: Acute upper respiratory infection, unspecified;Viral infection, unspecified;Congestion Presentation: 01/15 08:32 Presenting complaint: Patient states: last night felt like she had cough, headache, iw nasal congestion, sore throat, denies fever. Transition of care: patient was not received from another setting of care. Onset of symptoms was January 14, 2018. Risk Assessment: Do you want to hurt yourself or someone else? Patient reports no desire to harm self or others. Initial Sepsis Screen: Does the patient meet any 2 criteria? No. Patient's initial sepsis screen is negative. Does the patient have a suspected source of infection? No. Patient's initial sepsis screen is negative. Care prior to arrival: None. 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 - Social history:: Smoking status: Patient/guardian denies using tobacco. - Ebola Screening: : Patient negative for fever greater than or equal to 101.5 degrees Fahrenheit, and additional compatible Ebola Virus Disease symptoms Patient denies exposure to infectious person Patient denies travel to an Ebola-affected area in the 21 days before illness onset No symptoms or risks identified at this time. Screenin:35 Abuse screen: Denies threats or abuse. Denies injuries from another. Nutritional iw screening: No deficits noted. Tuberculosis screening: No symptoms or risk factors identified. Fall Risk None identified. Assessment: 08:35 General: Appears in no apparent distress. Behavior is calm, cooperative. General: iw Reports feeling ill for fatigue for 12-24 hours. Pain: Complains of pain in head. Neuro: Level of Consciousness is awake, alert, obeys commands. Cardiovascular: Patient's skin is warm and dry. Respiratory: Reports cough that is. 09:46 Reassessment: Patient appears in no apparent distress at this time. Patient and/or iw family updated on plan of care and expected duration. Pain level reassessed. Patient is alert, oriented x 3, equal unlabored respirations, skin warm/dry/pink. Vital Signs: 08:33 BP 105 / 68; Pulse 77; Resp 16; Temp 97.6; Pulse Ox 99% on R/A; Weight 70.76 kg; Height iw 5 ft. (152.40 cm); Pain 5/10; 08:33 Body Mass Index 30.47 (70.76 kg, 152.40 cm) iw ED Course: 08:09 Patient arrived in ED. sb2 08:09 None, None is Private Physician. sb2 08:14 Christiano Stewart MD is Attending Physician. kdr 08:33 Triage completed. iw 08:33 Arm band placed on. iw 08:34 Prudence Sierra, RN is Primary Nurse. iw 08:35 No provider procedures requiring assistance completed. Patient did not have IV access iw during this emergency room visit. 08:45 Patient has correct armband on for positive identification. iw 09:11 Rapid Strep Sent. mh5 Administered Medications: No medications were administered Outcome: 10:09 Discharge ordered by . kdr 10:19 Discharged to home ambulatory. iw 10:19 Condition: good 10:19 Discharge instructions given to patient, Instructed on discharge instructions, follow up and referral plans. medication usage, Demonstrated understanding of instructions, follow-up care, medications, Prescriptions given X 2. 10:20 Patient left the ED. iw Signatures: Christiano Stewart MD MD kdr Prudence Sierra, RN RN Bella Swanson Nancy Lomeli sb2
[2018-01-15 10:32] VITALS: BP 105/68; TEMP 97.6; O2SAT 99
== END 2018-01-15 10:20 | disposition home or self-care (01) ==
LOC: ER 08:07
DX: J06.9 Acute upper respiratory infection, unspecified (principal); B34.9 Viral infection, unspecified
CPT/HCPCS: 87070; 87081; 87804; 99283

== ENCOUNTER 2018-05-10 14:18 | Emergency (ER) | payer OTHER ==
--- OUTSIDE RECORDS SUMMARY | 2018-05-10 14:21 | XMS REPORT | Clinical Summary ---
:1995 Author Organization [facility] Address [address] [place] [address] Care Team Providers Name Role Phone Asked, No Pcp Primary Care Provider Unavailable Allergies No Known Allergies Medications Medication Sig Dispensed Refills Start Date End Date Status ibuprofen Take 400 mg by 0 Active (ADVIL,MOTRIN) 400 MG mouth as needed tablet for headaches. multivitamin with Take 1 tablet by 0 Active minerals tablet mouth daily. Takes One-A-Day [...] Assigned at Date Recorded Not on file Job Start Date Occupation Industry Not on file Not on file Not on file Travel History Travel Start Travel End No recent travel history available. Last Filed Vital Signs Not on file Plan of Treatment Not on file Results Not on fileafter 05/09/2017 Insurance Payer Benefit Plan / Group Subscriber ID Type Phone Address [facility] CHOICE xxxxxxxx PPO [employer] [facility] xxxxxxxx Behavioral Health Advance Directives Patient has advance care planning documents, and code status on file. For more information, please contact:[address] [address] Code Status Date Activated Date Inactivated Comments Full Code 10/25/2016 2:03 PM 10/28/2016 8:21 PM Code Status decision reached by: Patient
--- NOTE | 2018-05-10 15:34 | EDPHYS ---
Physician Documentation [facility] Name: Linda Oneal Age: 23 yrs Sex: Female : 1995 Arrival Date: 05/10/2018 Time: 14:21 Bed 10 Private MD: ED Physician Davian Moss HPI: 05/10 15:29 This 23 yrs old Female presents to ER via Ambulatory with complaints of Low rn Back Pain, Pain With Urination. 15:29 This 23 yrs old Female presents to ER via Ambulatory with complaints of Low rn Back Pain, Pain With Urination. 15:30 The patient presents with urinary symptoms, dysuria, frequency, urgency. Onset: The rn symptoms/episode began/occurred 2 day(s) ago. Severity of symptoms: At their worst the symptoms were mild, in the emergency department the symptoms are unchanged. The patient has experienced similar episodes in the past. Reports approx 5 weeks , here because of possible urine infection, + increased frequency, + dysuria, + urgency, no vaginal discharge or bleeding, no abd pain. Has appt with OB for her . Has had miscarriages before and attributes them to UTI so wanted this one treated. . 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 - Social history:: Smoking status: Patient/guardian denies using tobacco, Patient/guardian denies using alcohol. - Ebola Screening: : Patient negative for fever greater than or equal to 101.5 degrees Fahrenheit, and additional compatible Ebola Virus Disease symptoms Patient denies exposure to infectious person Patient denies travel to an Ebola-affected area in the 21 days before illness onset. - Family history:: not pertinent. - Hospitalizations: : No recent hospitalization is reported. ROS: 15:30 Positive for urinary symptoms, Negative for hematuria, flank pain, bladder rn incontinence, vaginal bleeding, vaginal discharge. 15:30 Constitutional: Negative for fever, chills, and weight loss, Eyes: Negative for injury, pain, redness, and discharge, Cardiovascular: Negative for chest pain, palpitations, and edema, Respiratory: Negative for shortness of breath, cough, wheezing, and pleuritic chest pain, Abdomen/GI: Negative for abdominal pain, diarrhea, and constipation, MS/Extremity: Negative for injury and deformity, Skin: Negative for injury, rash, and discoloration, Neuro: Negative for headache, weakness, numbness, tingling, and seizure. Exam: 15:30 Constitutional: This is a well developed, well nourished patient who is awake, alert, rn and in no acute distress. Abdomen/GI: soft, non-tender Back: No spinal tenderness. No costovertebral tenderness. Full range of motion. Vital Signs: 14:47 BP 110 / 68; Pulse 77; Resp 18; Temp 97.8(TE); Pulse Ox 99% on R/A; Weight 72.57 kg; hj Height 5 ft. 0 in. (152.40 cm); Pain 6/10; 15:44 BP 112 / 78; Pulse 78; Resp 18; Pulse Ox 100% on R/A; Pain 3/10; mg2 14:47 Body Mass Index 31.25 (72.57 kg, 152.40 cm) hj MDM: 15:25 Patient medically screened. rn 15:30 Differential diagnosis: urinary tract infection. Data reviewed: vital signs, nurses rn notes, and as a result, I will discharge patient. Counseling: I had a detailed discussion with the patient and/or guardian regarding: the historical points, exam findings, and any diagnostic results supporting the discharge/admit diagnosis, lab results, the need for outpatient follow up, to return to the emergency department if symptoms worsen or persist or if there are any questions or concerns that arise at home. Special discussion: I discussed with the patient/guardian in detail that at this point there is no indication for admission to the hospital. It is understood, however, that if the symptoms persist or worsen the patient needs to return immediately for re-evaluation. Based on the history and exam findings, there is no indication for further emergent testing or inpatient evaluation. I discussed with the patient/guardian the need to see the OB Gyne specialist for further evaluation of the symptoms. 05/10 14:50 Order name: Urine Microscopic Only 05/10 15:35 Order name: Urine Dipstick--Ancillary (enter results) 12/31 14:50 Order name: Urine Dipstick-Ancillary (obtain specimen); Complete Time: 15:32 05/10 14:50 Order name: Urine Test (obtain specimen); Complete Time: 15:32 05/10 15:35 Order name: Urine --Ancillary (enter results) bd Administered Medications: No medications were administered Disposition: 05/10/18 15:33 Discharged to Home. Impression: Urinary tract infection, site not specified. - Condition is Stable. - Discharge Instructions: Urinary Tract Infection, Adult. - Prescriptions for Macrobid 100 mg Oral Capsule - take 1 capsule by ORAL route every 12 hours for 10 days; 20 capsule. - Medication Reconciliation Form, Thank You Letter, Antibiotic Education, Prescription Opioid Use, Family Work Release form. - Follow up: Private Physician; When: As needed; Reason: Recheck today's complaints, Re-evaluation by your physician. - Problem is new. - Symptoms have improved. Signatures: Dispatcher [employer] EDMS Davian Moss MD MD rn Joaquin, Henry, RN RN Atul Lai RN RN mg2 Corrections: (The following items were deleted from the chart) 15:44 15:33 05/10/2018 15:33 Discharged to Home. Impression: Urinary tract infection, site mg2 not specified. Condition is Stable. Forms are Medication Reconciliation Form, Thank You Letter, Antibiotic Education, Prescription Opioid Use. Follow up: Private Physician; When: As needed; Reason: Recheck today's complaints, Re-evaluation by your physician. Problem is new. Symptoms have improved. rn
--- NOTE | 2018-05-10 15:34 | ER ---
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 Transition of care: patient was not received from another setting of care. Onset of symptoms was May 10, 2018. Risk Assessment: Do you want to hurt yourself or someone else? Patient reports no desire to harm self or others. Initial Sepsis Screen: Does the patient meet any 2 criteria? No. Patient's initial sepsis screen is negative. Does the patient have a suspected source of infection? No. Patient's initial sepsis screen is negative. Care prior to arrival: None. 14:44 Method Of Arrival: Ambulatory 14:44 Acuity: FROYLAN 4 Triage Assessment: 14:46 General: Appears in no apparent distress. uncomfortable, Behavior is calm, cooperative, hj appropriate for age. Pain: Complains of pain in pelvis Pain currently is 6 out of 10 on a pain scale. 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 - Social history:: Smoking status: Patient/guardian denies using tobacco, Patient/guardian denies using alcohol. - Ebola Screening: : Patient negative for fever greater than or equal to 101.5 degrees Fahrenheit, and additional compatible Ebola Virus Disease symptoms Patient denies exposure to infectious person Patient denies travel to an Ebola-affected area in the 21 days before illness onset. - Family history:: not pertinent. - Hospitalizations: : No recent hospitalization is reported. Screenin:47 Abuse screen: Denies threats or abuse. Denies injuries from another. Nutritional hj screening: No deficits noted. Tuberculosis screening: No symptoms or risk factors identified. Fall Risk None identified. Assessment: 15:30 General: Appears in no apparent distress. comfortable, Behavior is calm, cooperative. mg2 Pain: Complains of pain in pelvis Pain does not radiate. Pain currently is 6 out of 10 on a pain scale. Quality of pain is described as aching, Pain began gradually, 2-3 days ago. Is intermittent. Neuro: Level of Consciousness is awake, alert, obeys commands, Oriented to person, place, time, situation. Cardiovascular: Capillary refill < 3 seconds Patient's skin is warm and dry. Respiratory: Airway is patent Respiratory effort is even, unlabored, Respiratory pattern is regular, symmetrical. GI: No signs and/or symptoms were reported involving the gastrointestinal system. : Urine is clear, Reports burning with urination, pain in left in suprapubic area since 3 days ago. EENT: No signs and/or symptoms were reported regarding the EENT system. Derm: Skin is intact, is healthy with good turgor, Skin is pink, warm \T\ dry. normal. Musculoskeletal: No signs and/or symptoms reported regarding the musculoskeletal system. Vital Signs: 14:47 BP 110 / 68; Pulse 77; Resp 18; Temp 97.8(TE); Pulse Ox 99% on R/A; Weight 72.57 kg; hj Height 5 ft. 0 in. (152.40 cm); Pain 6/10; 15:44 BP 112 / 78; Pulse 78; Resp 18; Pulse Ox 100% on R/A; Pain 3/10; mg2 14:47 Body Mass Index 31.25 (72.57 kg, 152.40 cm) ED Course: 14:21 Patient arrived in ED. rg4 14:45 Triage completed. hj 14:47 Arm band placed on right wrist. hj 14:49 Patient has correct armband on for positive identification. Bed in low position. Call light in reach. Side rails up X 1. 15:25 Davian Moss MD is Attending Physician. rn 15:27 Atul Lai, RICHARDSON is Primary Nurse. mg2 15:28 No provider procedures requiring assistance completed. mg2 15:44 Patient did not have IV access during this emergency room visit. mg2 Administered Medications: No medications were administered Outcome: 15:33 Discharge ordered by . rn 15:44 Discharged to home ambulatory. mg2 15:44 Condition: stable 15:44 Discharge instructions given to patient, family, Instructed on discharge instructions, follow up and referral plans. Demonstrated understanding of instructions, follow-up care, medications, Prescriptions given X 1. 15:44 Patient left the ED. 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
[2018-05-10 15:48] LABS: Urine Blood TRACE (NEG); Urine Glucose NEGATIVE (NEG); Urine Protein NEGATIVE (NEG); Urine Specific Gravity >1.030 (1.005-1.030); Urine pH 5.5 (5.0-7.0)
[2018-05-10 15:52] VITALS: TEMP 97.8
[2018-05-10 15:54] VITALS: BP 112/78; O2SAT 100
[2018-05-10 15:54] LABS: Urine Bacteria >50 /HPF (<20); Urine Culture Reflex Order REFLEXED; Urine RBC <5 /HPF (NONE SEEN)
[2018-05-10 15:55] LABS: Urine Mucus 2+ /HPF (NONE SEEN)
== END 2018-05-10 15:44 | disposition home or self-care (01) ==
LOC: ER 14:18
DX: O23.41 Unspecified infection of urinary tract in pregnancy, first trimester (principal); Z3A.01 Less than 8 weeks gestation of pregnancy
CPT/HCPCS: 81003; 81015; 81025; 87086; 87088; 99282

== ENCOUNTER 2018-05-21 12:03 | Emergency (ER) | payer OTHER ==
--- OUTSIDE RECORDS SUMMARY | 2018-05-21 12:05 | XMS REPORT | Clinical Summary ---
:1995 Author Organization [facility] Address [address] [place] [address] Care Team Providers Name Role Phone Asked, [...] Not on file Results Not on fileafter 05/20/2017 Insurance Payer Benefit Plan / Group Subscriber ID Type Phone Address [facility] xxxxxxxx PPO [employer] [facility] xxxxxxxx Behavioral Health Advance Directives Patient has advance care planning documents, and code status on file. For more information, please contact:[address] [address] Code Status Date Activated Date Inactivated Comments Full Code 10/25/2016 2:03 PM 10/28/2016 8:21 PM Code Status decision reached by: Patient
[2018-05-21] MEDS ORDERED: ONDANSETRON 4 MG/2 ML VIAL ONE (13:23)
[2018-05-21] MEDS ORDERED: NA CHLORIDE 0.9% 1,000 ML ONE (13:23)
[2018-05-21 13:28] LABS: Urine Blood NEGATIVE (NEG); Urine Glucose NEGATIVE (NEG); Urine Protein NEGATIVE (NEG); Urine Specific Gravity 1.015 (1.005-1.030); Urine pH 8.5 (5.0-7.0)
[2018-05-21 13:31] LABS: Absolute Lymphocytes (CBC) 1.4 K/uL (0.7-4.9); Absolute Monocytes 0.5 K/uL (0.1-1.3); Absolute Neutrophil 5.9 K/uL (1.8-8.0); Basophils % 0.4 % (0-1.3); Eosinophils % 3.6 % (0-4.4); Hematocrit 38.8 % (36.0-45.0); Lymphocytes % 17.3 % (15.3-44.8); MPV 10.3 fL (7.6-11.3); Monocytes % 5.7 % (3.3-12.3); RBC Red Blood Cell Count 4.51 M/uL (3.86-4.86)
[2018-05-21 14:14] LABS: ALT/SGPT 18 U/L (12-78); AST/SGOT 9 U/L (15-37); Albumin 3.9 g/dL (3.4-5.0); Alkaline Phosphatase 84 U/L (45-117); BUN Blood Urea Nitrogen 10 mg/dL (7-18); Bicarbonate 25 mmol/L (21-32); Bilirubin Direct < 0.1 mg/dL (0-0.2); Bilirubin Total 0.3 mg/dL (0.2-1.0); Glucose Level 106 mg/dL (74-106); HCG, Quantitative 25963 mIU/mL (1-3); Lipase 114 U/L (73-393); Potassium 3.6 mmol/L (3.5-5.1); Sodium Level 138 mmol/L (136-145)
--- NOTE | 2018-05-21 15:32 | ER ---
Nurse's Notes [facility] Name: Linda Oneal Age: 23 yrs Sex: Female : 1995 Arrival Date: 05/21/2018 Time: 12:10 Bed 16 Private MD: Diagnosis: Gastroenteritis Presentation: 05/21 12:17 Presenting complaint: Patient states: Severe abdominal cramps and diarrhea last night, ph cramps and light vaginal spotting today, approx 6 weeks , states, " I had an US yesterday and they said the baby is growing right or something like that,". Transition of care: patient was not received from another setting of care. Onset of symptoms was May 21, 2018. Risk Assessment: Do you want to hurt yourself or someone else? Patient reports no desire to harm self or others. Initial Sepsis Screen: Does the patient meet any 2 criteria? No. Patient's initial sepsis screen is negative. Does the patient have a suspected source of infection? No. Patient's initial sepsis screen is negative. Care prior to arrival: None. 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 - Social history:: Smoking status: Patient/guardian denies using tobacco. - Ebola Screening: : No symptoms or risks identified at this time. Screenin:43 Abuse screen: Denies threats or abuse. Nutritional screening: No deficits noted. tw2 Tuberculosis screening: No symptoms or risk factors identified. Fall Risk None identified. Assessment: 12:37 General: Appears in no apparent distress. obese, Behavior is calm, cooperative, tw2 appropriate for age, Reports "they did my US and told me something was not right with the baby, that it had no heartbeat, but my ob couldn't get me in". Pain: Complains of pain in pelvis. Neuro: Level of Consciousness is awake, alert, obeys commands, Oriented to person, place, time, situation. Cardiovascular: Heart tones S1 S2 Patient's skin is warm and dry. Respiratory: Airway is patent Respiratory effort is even, unlabored, Respiratory pattern is regular, symmetrical, Breath sounds are clear bilaterally. GI: Abdomen is flat, Bowel sounds present X 4 quads. Reports cramping, light spotting of blood. : No signs and/or symptoms were reported regarding the genitourinary system. EENT: No signs and/or symptoms were reported regarding the EENT system. Derm: No signs and/or symptoms reported regarding the dermatologic system. Musculoskeletal: Range of motion: intact in all extremities. 13:40 Reassessment: Patient appears in no apparent distress at this time. No changes from tw2 previously documented assessment. Patient and/or family updated on plan of care and expected duration. Pain level reassessed. Patient is alert, oriented x 3, equal unlabored respirations, skin warm/dry/pink. 13:43 Obstetrical Assessment: Patient reports abdominal cramping, n/a. tw2 14:31 Reassessment: Patient appears in no apparent distress at this time. No changes from tw2 previously documented assessment. Patient and/or family updated on plan of care and expected duration. Pain level reassessed. Patient is alert, oriented x 3, equal unlabored respirations, skin warm/dry/pink. 15:24 Reassessment: Patient appears in no apparent distress at this time. No changes from tw2 previously documented assessment. Patient and/or family updated on plan of care and expected duration. Pain level reassessed. Patient is alert, oriented x 3, equal unlabored respirations, skin warm/dry/pink. Vital Signs: 12:20 BP 112 / 64; Pulse 79; Resp 18; Temp 97.8; Pulse Ox 100% on R/A; Weight 73.94 kg; ph Height 5 ft. 0 in. (152.40 cm); 13:40 BP 96 / 57; Pulse 66; Resp 17; Pulse Ox 100% on R/A; tw2 14:31 BP 98 / 62; Pulse 69; Resp 17; Pulse Ox 97% on R/A; tw2 15:23 BP 118 / 67; Pulse 69; Resp 17; Pulse Ox 99% on R/A; tw2 12:20 Body Mass Index 31.83 (73.94 kg, 152.40 cm) ph Vitals: 12:43 Heart Tones n/a pt 6 weeks . tw2 ED Course: 12:10 Patient arrived in ED. as 12:19 Triage completed. ph 12:20 Arm band placed on. ph 12:37 Bed in low position. Call light in reach. Pulse ox on. NIBP on. Warm blanket given. tw2 12:39 Julián Villafuerte PA is PHCP. jr8 12:39 Ney Tate MD is Attending Physician. jr8 12:42 Martina Perez, RN is Primary Nurse. tw2 13:20 Inserted saline lock: 22 gauge in left antecubital area, using aseptic technique. Blood tw2 collected. 13:28 HCG-Quantitative Sent. tw2 13:29 TS Sent. tw2 15:49 No provider procedures requiring assistance completed. IV discontinued, intact, tw2 bleeding controlled, No redness/swelling at site. Pressure dressing applied. Administered Medications: 13:25 Drug: Zofran 4 mg Route: IVP; Site: left antecubital; tw2 14:31 Follow up: Response: No adverse reaction tw2 13:28 Drug: NS 0.9% 1000 ml Route: IV; Rate: 1000 ml; Site: left antecubital; tw2 15:25 Follow up: Response: No adverse reaction; IV Status: Completed infusion; IV Intake: tw2 1000ml Point of Care Testing: Urine : 13:43 hCG Reading: Positive; tw2 Intake: 15:25 IV: 1000ml; Total: 1000ml. tw2 Outcome: 15:32 Discharge ordered by . jr8 15:50 Discharged to home ambulatory. tw2 15:50 Condition: stable 15:50 Discharge instructions given to patient, Instructed on discharge instructions, follow up and referral plans. no drinking with medication, no driving heavy equipment, medication usage, Demonstrated understanding of instructions, follow-up care, medications, Prescriptions given X 1. 15:51 Patient left the ED. tw2 Signatures: Karrie Swanson Josh, PA PA jr8 Ana Gandhi RN RN Martina Perez RN RN tw2
--- NOTE | 2018-05-21 15:32 | EDPHYS ---
Physician Documentation [facility] Name: Linda Oneal Age: 23 yrs Sex: Female : 1995 Arrival Date: 05/21/2018 Time: 12:10 Bed 16 Private MD: ED Physician Ney Tate HPI: 05/21 14:26 This 23 yrs old Female presents to ER via Ambulatory with complaints of jr8 Vaginal Bleeding, + Preg <12wks. 14:26 course: care: private OB physician, Leakage of Fluid: none jr8 appreciated, Ultrasound: the patient had an ultrasound, on May 20, 2017. Previous pregnancies: in previous pregnancies patient has had. The patient has not experienced similar symptoms in the past. Patient stated that she had US yesterday and measured 6 w 3 days. No HR yet. Had nausea and diarrhea today along with cramping. Whipped once and saw light pink spotting. Since then has not seen it again . 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 - Social history:: Smoking status: Patient/guardian denies using tobacco. - Ebola Screening: : No symptoms or risks identified at this time. ROS: 14:26 Eyes: Negative for injury, pain, redness, and discharge, ENT: Negative for injury, jr8 pain, and discharge, Neck: Negative for injury, pain, and swelling, Cardiovascular: Negative for chest pain, palpitations, and edema, Respiratory: Negative for shortness of breath, cough, wheezing, and pleuritic chest pain, Back: Negative for injury and pain, MS/Extremity: Negative for injury and deformity, Skin: Negative for injury, rash, and discoloration, Neuro: Negative for headache, weakness, numbness, tingling, and seizure. 14:26 Abdomen/GI: Positive for nausea, vomiting, and diarrhea, abdominal cramps, Negative for abdominal distension, anorexia, dysphagia, hematemesis, black/tarry stool, rectal pain, rectal bleeding, bowel incontinence, flatulence. Exam: 14:26 Eyes: Pupils equal round and reactive to light, extra-ocular motions intact. Lids and jr8 lashes normal. Conjunctiva and sclera are non-icteric and not injected. Cornea within normal limits. Periorbital areas with no swelling, redness, or edema. ENT: Nares patent. No nasal discharge, no septal abnormalities noted. Tympanic membranes are normal and external auditory canals are clear. Oropharynx with no redness, swelling, or masses, exudates, or evidence of obstruction, uvula midline. Mucous membranes moist. Neck: Trachea midline, no thyromegaly or masses palpated, and no cervical lymphadenopathy. Supple, full range of motion without nuchal rigidity, or vertebral point tenderness. No Meningismus. Cardiovascular: Regular rate and rhythm with a normal S1 and S2. No gallops, murmurs, or rubs. Normal PMI, no JVD. No pulse deficits. Respiratory: Lungs have equal breath sounds bilaterally, clear to auscultation and percussion. No rales, rhonchi or wheezes noted. No increased work of breathing, no retractions or nasal flaring. Abdomen/GI: Soft with mild tenderness diffusely, with normal bowel sounds. No distension or tympany. No guarding or rebound. No evidence of tenderness throughout. Back: No spinal tenderness. No costovertebral tenderness. Full range of motion. Skin: Warm, dry with normal turgor. Normal color with no rashes, no lesions, and no evidence of cellulitis. MS/ Extremity: Pulses equal, no cyanosis. Neurovascular intact. Full, normal range of motion. Neuro: Awake and alert, GCS 15, oriented to person, place, time, and situation. Cranial nerves II-XII grossly intact. Motor strength 5/5 in all extremities. Sensory grossly intact. Cerebellar exam normal. Normal gait. Vital Signs: 12:20 BP 112 / 64; Pulse 79; Resp 18; Temp 97.8; Pulse Ox 100% on R/A; Weight 73.94 kg; ph Height 5 ft. 0 in. (152.40 cm); 13:40 BP 96 / 57; Pulse 66; Resp 17; Pulse Ox 100% on R/A; tw2 14:31 BP 98 / 62; Pulse 69; Resp 17; Pulse Ox 97% on R/A; tw2 15:23 BP 118 / 67; Pulse 69; Resp 17; Pulse Ox 99% on R/A; tw2 12:20 Body Mass Index 31.83 (73.94 kg, 152.40 cm) ph MDM: 12:39 Patient medically screened. jr8 15:30 Data reviewed: vital signs, nurses notes, lab test result(s), and as a result, I will jr8 discharge patient. Data interpreted: Pulse oximetry: on room air is 99 %. Interpretation: normal. Counseling: I had a detailed discussion with the patient and/or guardian regarding: the historical points, exam findings, and any diagnostic results supporting the discharge/admit diagnosis, lab results, the need for outpatient follow up, an OB/Gyne specialist, to return to the emergency department if symptoms worsen or persist or if there are any questions or concerns that arise at home. Response to treatment: the patient's symptoms have mildly improved after treatment, patient is well hydrated. ED course: Cramping is better. Labs unremarkable. No vaginal spotting or bleeding currently. Recommend f/u with conveyor attendant. Currently does not need another US since she had one yesterday with confirmed IUP but with HR. Differential is early gestation vs. blighted ovum vs. missed early . Patient understands and will f/u. The n/v/d more then likely related to GI viral infection . 05/21 13:01 Order name: Basic Metabolic Panel; Complete Time: :05/21 13:01 Order name: CBC with Diff; Complete Time: 13:45 05/21 13:01 Order name: Creatinine for Radiology; Complete Time: 14:05/21 13:01 Order name: Hepatic Function; Complete Time: :05/21 13:01 Order name: Lipase; Complete Time: 14:05/21 13:01 Order name: TS; Complete Time: 14:05/21 13:01 Order name: IV Saline Lock; Complete Time: 13:05/21 13:01 Order name: Labs collected and sent; Complete Time: :05/21 13:01 Order name: HCG-Quantitative; Complete Time: 14:05/21 13:06 Order name: Urine Dipstick--Ancillary (enter results); Complete Time: 13:36 05/21 13:06 Order name: Urine --Ancillary (enter results); Complete Time: 13:36 bd Administered Medications: 13:25 Drug: Zofran 4 mg Route: IVP; Site: left antecubital; tw2 14:31 Follow up: Response: No adverse reaction tw2 13:28 Drug: NS 0.9% 1000 ml Route: IV; Rate: 1000 ml; Site: left antecubital; tw2 15:25 Follow up: Response: No adverse reaction; IV Status: Completed infusion; IV Intake: tw2 1000ml Point of Care Testing: Urine : 13:43 hCG Reading: Positive; tw2 Disposition: 05/22 09:27 Co-signature as Attending Physician, Ney Tate MD. Disposition: 05/21/18 15:32 Discharged to Home. Impression: Gastroenteritis . - Condition is Stable. - Discharge Instructions: Viral Gastroenteritis, Adult. - Prescriptions for promethazine 25 mg Oral Tablet - take 1 tablet by ORAL route every 6 hours As needed; 20 tablet. - Medication Reconciliation Form, Thank You Letter, Antibiotic Education, Prescription Opioid Use, Work release form form. - Follow up: Private Physician; When: 2 - 3 days; Reason: Recheck today's complaints, Continuance of care, Re-evaluation by your physician. - Problem is new. - Symptoms have improved. Signatures: Dispatcher [employer] EDJulián Rodríguez PA PA jr8 Ana Gadnhi, RN RN Martina Perez RN RN 2 Ney Tate MD MD Corrections: (The following items were deleted from the chart) 05/21 15:51 15:32 05/21/2018 15:32 Discharged to Home. Impression: Gastroenteritis . Condition is tw2 Stable. Forms are Medication Reconciliation Form, Thank You Letter, Antibiotic Education, Prescription Opioid Use. Follow up: Private Physician; When: 2 - 3 days; Reason: Recheck today's complaints, Continuance of care, Re-evaluation by your physician. Problem is new. Symptoms have improved. jr8
[2018-05-21 16:25] VITALS: TEMP 97.8
[2018-05-21 16:29] VITALS: BP 118/67; O2SAT 99
== END 2018-05-21 15:51 | disposition home or self-care (01) ==
LOC: ER 12:03
DX: K52.9 Noninfective gastroenteritis and colitis, unspecified (principal); Z33.1 Pregnant state, incidental
CPT/HCPCS: 36415; 80048; 80076; 81003; 81025; 83690; 84702; 85025; 86850; 86900; 86901; 96361; 96374; 99284; J2405; J7030

== ENCOUNTER 2018-10-20 18:01 | Emergency (ER) | payer OTHER ==
--- OUTSIDE RECORDS SUMMARY | 2018-10-20 18:03 | XMS REPORT | Clinical Summary ---
:1995 Author Organization [facility] Address [address] [place] [id number] Care Team Providers Name Role Phone Asked, [...] Not on file Results Not on fileafter 10/19/2017 Insurance Payer Benefit Plan / Group Subscriber ID Effective Phone Address Type Dates [facility] xxxxxxxx 2015-Pres PPO CHOICE [facility] xxxxxxxx 2015-Pres [facility] Advance Directives Patient has advance care planning documents, and code status on file. For more information, please contact:Amilcar [id number] [place] [address] Code Status Date Activated Date Inactivated Comments Full Code 10/25/2016 2:03 PM 10/28/2016 8:21 PM Code Status decision reached by: Patient
--- OUTSIDE RECORDS SUMMARY | 2018-10-20 18:04 | XMS REPORT ---
:1995 [facility] Address [address] [place] [address] Dr. Krueger [address] [place] [id number] Care Team Providers Name Role Phone Unavailable Unavailable Unavailable Problems This patient has no known problems. Allergies, Adverse Reactions, Alerts This patient has no known allergies or adverse reactions. Medications This patient has no known medications.
[2018-10-20 18:51] LABS: Urine Blood TRACE (NEG); Urine Glucose NEGATIVE (NEG); Urine Protein NEGATIVE (NEG); Urine Specific Gravity 1.025 (1.005-1.030)
[2018-10-20 18:59] LABS: Absolute Lymphocytes (CBC) 1.5 K/uL (0.7-4.9); Absolute Monocytes 0.5 K/uL (0.1-1.3); Basophils % 0.4 % (0-1.3); Eosinophils % 2.2 % (0-4.4); Hematocrit 39.1 % (36.0-45.0); Lymphocytes % 18.7 % (15.3-44.8); MPV 10.4 fL (7.6-11.3); Monocytes % 6.6 % (3.3-12.3); RBC Red Blood Cell Count 4.47 M/uL (3.86-4.86)
[2018-10-20 19:14] LABS: ALT/SGPT 17 U/L (12-78); AST/SGOT 11 U/L (15-37); Albumin 4.1 g/dL (3.4-5.0); Alkaline Phosphatase 85 U/L (45-117); BUN Blood Urea Nitrogen 14 mg/dL (7-18); Bicarbonate 26 mmol/L (21-32); Bilirubin Direct < 0.1 mg/dL (0-0.2); Bilirubin Total 0.3 mg/dL (0.2-1.0); Glucose Level 93 mg/dL (74-106); Lipase 112 U/L (73-393); Potassium 3.7 mmol/L (3.5-5.1); Sodium Level 141 mmol/L (136-145)
--- NOTE | 2018-10-20 19:30 | RAD REPORT ---
EXAM DESCRIPTION: RAD - Chest Single View - 10/20/2018 7:00 pm CLINICAL HISTORY: Chest pain COMPARISON: None. TECHNIQUE: AP portable chest image was obtained 1858 hours . FINDINGS: Lungs are clear. Heart and vasculature are normal. No measurable pleural effusion and no p neumothorax. No acute bony abnormality seen. No acute aortic findings suspected. IMPRESSION: No acute cardiopulmonary process.
--- NOTE | 2018-10-20 20:18 | ER ---
Nurse's Notes [facility] Name: Linda Oneal Age: 23 yrs Sex: Female : 1995 Arrival Date: 10/20/2018 Time: 18:03 Bed 24 Private MD: Diagnosis: Generalized abdominal pain Presentation: 10/20 18:06 Presenting complaint: Patient states: las night, when i breathe, the top of my neck, my hj back, my shoulder hurts and my stomach hurts too (epigastric kendra) reports N/V; denies fever and chills;. Transition of care: patient was not received from another setting of care. Onset of symptoms was October 20, 2018. Risk Assessment: Do you want to hurt yourself or someone else? Patient reports no desire to harm self or others. Initial Sepsis Screen: Does the patient meet any 2 criteria? No. Patient's initial sepsis screen is negative. Does the patient have a suspected source of infection? No. Patient's initial sepsis screen is negative. Care prior to arrival: None. 18:06 Method Of Arrival: Ambulatory 18:06 Acuity: FROYLAN 3 Triage Assessment: 18:10 General: Appears in no apparent distress. Behavior is calm, cooperative. ls4 18:10 Pain: Complains of pain in abdomen, left shoulder and neck Pain currently is 4 out of ls4 10 on a pain scale. Neuro: Level of Consciousness is awake, alert, obeys commands, Oriented to person, place, time, situation. GI: Abdomen is non-distended, Bowel sounds present X 4 quads. Abd is soft and non tender X 4 quads. : No deficits noted. No signs and/or symptoms were reported regarding the genitourinary system. 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 - Social history:: Smoking status: Patient/guardian denies using tobacco. - Ebola Screening: : Patient negative for fever greater than or equal to 101.5 degrees Fahrenheit, and additional compatible Ebola Virus Disease symptoms Patient denies exposure to infectious person Patient denies travel to an Ebola-affected area in the 21 days before illness onset No symptoms or risks identified at this time. Screenin:41 Abuse screen: Denies threats or abuse. Denies injuries from another. Nutritional ls4 screening: No deficits noted. Tuberculosis screening: No symptoms or risk factors identified. Fall Risk None identified. Assessment: 18:15 General: Appears uncomfortable, Behavior is calm, cooperative. ls4 18:15 Neuro: No deficits noted. Cardiovascular: No deficits noted. Respiratory: No deficits ls4 noted. GI: Abdomen is non-distended, Bowel sounds present X 4 quads. Reports nausea, vomiting. Vital Signs: 18:08 BP 113 / 65; Pulse 96; Resp 18; Temp 99.0(TE); Pulse Ox 99% on R/A; Weight 71.67 kg; hj Height 5 ft. 0 in. (152.40 cm); Pain 4/10; 20:30 BP 109 / 69; Pulse 88; Resp 16; Temp 98.6; Pulse Ox 100% on R/A; Pain 3/10; ls4 18:08 Body Mass Index 30.86 (71.67 kg, 152.40 cm) hj ED Course: 18:03 Patient arrived in ED. mr 18:07 Triage completed. hj 18:09 Arm band placed on left wrist. hj 18:11 No provider procedures requiring assistance completed. ls4 18:17 Minerva Ji, RICHARDSON is Primary Nurse. ls4 18:27 Charla Schultz FNP-C is [facility]. kb 18:27 Yovani mSith MD is Attending Physician. kb 18:30 Inserted saline lock: 20 gauge in right antecubital area, using aseptic technique. ls4 Blood collected. 18:30 Patient maintains SpO2 saturation greater than 95% on room air. ls4 19:00 Chest Single View XRAY In Process Unspecified. EDMS 19:41 Patient has correct armband on for positive identification. Bed in low position. Call ls4 light in reach. Side rails up X 1. Pulse ox on. NIBP on. Warm blanket given. Verbal reassurance given. 20:20 US Abdomen Limited In Process Unspecified. EDMS 20:32 IV discontinued, intact, bleeding controlled, No redness/swelling at site. Pressure ls4 dressing applied. Administered Medications: No medications were administered Outcome: 20:18 Discharge ordered by . kb 20:32 Discharged to home ambulatory. ls4 20:32 Condition: stable 20:32 Discharge instructions given to patient, Instructed on discharge instructions, follow up and referral plans. medication usage, safety practices, Demonstrated understanding of instructions, follow-up care, medications. 20:33 Patient left the ED. ls4 Signatures: Dispatcher [employer] EDAZ Charla Schultz, GENARO SHIRT TURNER-Nelson Margret Mayes Jitendra Krueger RN RN Minerva Prescott RN RN ls4 Corrections: (The following items were deleted from the chart) 18:09 18:08 Pulse 96bpm; Resp 18bpm; Pulse Ox 99% RA; Temp 99.0F Temporal; 71.67 kg; Height 5 hj ft. 0 in.; BMI: 30.8; Pain 4/10; hj
--- NOTE | 2018-10-20 20:18 | EDPHYS ---
Physician Documentation [facility] Name: Linda Oneal Age: 23 yrs Sex: Female : 1995 Arrival Date: 10/20/2018 Time: 18:03 Bed 24 Private MD: ED Physician Yovani Smith HPI: 10/20 19:21 This 23 yrs old Female presents to ER via Ambulatory with complaints of kb Abdominal Pain. 19:21 The patient presents with abdominal pain in the epigastric area. kb 19:21 Onset: The symptoms/episode began/occurred last night. The symptoms do not radiate. kb Associated signs and symptoms: Pertinent positives: nausea, Pertinent negatives: anorexia, blood in stools, chest pain, constipation, diarrhea, dysuria, fever, headache, hematuria, palpitations, shortness of breath, vaginal discharge, vomiting, vomiting blood. The symptoms are described as constant. Modifying factors: The symptoms are alleviated by nothing, the symptoms are aggravated by food. Severity of pain: At its worst the pain was moderate in the emergency department the pain is unchanged. The patient has not experienced similar symptoms in the past. The patient has not recently seen a physician. 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 - Social history:: Smoking status: Patient/guardian denies using tobacco. - Ebola Screening: : Patient negative for fever greater than or equal to 101.5 degrees Fahrenheit, and additional compatible Ebola Virus Disease symptoms Patient denies exposure to infectious person Patient denies travel to an Ebola-affected area in the 21 days before illness onset No symptoms or risks identified at this time. ROS: 19:18 Constitutional: Negative for fever, chills, and weight loss, Cardiovascular: Negative kb for chest pain, palpitations, and edema, Respiratory: Negative for shortness of breath, cough, wheezing, and pleuritic chest pain, Back: Negative for injury and pain, : Negative for injury, bleeding, discharge, and swelling, MS/Extremity: Negative for injury and deformity, Skin: Negative for injury, rash, and discoloration, Neuro: Negative for headache, weakness, numbness, tingling, and seizure. 19:18 Neck: Positive for of the left posterior aspect of neck and left lateral aspect of neck, pain with deep breath. 19:18 Abdomen/GI: Positive for abdominal pain, nausea, Negative for vomiting, diarrhea, constipation, abdominal cramps, abdominal distension, anorexia. Exam: 19:18 Constitutional: This is a well developed, well nourished patient who is awake, alert, kb and in no acute distress. Head/Face: Normocephalic, atraumatic. ENT: Nares patent. No nasal discharge, no septal abnormalities noted. Tympanic membranes are normal and external auditory canals are clear. Oropharynx with no redness, swelling, or masses, exudates, or evidence of obstruction, uvula midline. Mucous membranes moist. Neck: Trachea midline, no thyromegaly or masses palpated, and no cervical lymphadenopathy. Supple, full range of motion without nuchal rigidity, or vertebral point tenderness. No Meningismus. Chest/axilla: Normal chest wall appearance and motion. Nontender with no deformity. No lesions are appreciated. Cardiovascular: Regular rate and rhythm with a normal S1 and S2. No gallops, murmurs, or rubs. Normal PMI, no JVD. No pulse deficits. Respiratory: Lungs have equal breath sounds bilaterally, clear to auscultation and percussion. No rales, rhonchi or wheezes noted. No increased work of breathing, no retractions or nasal flaring. Back: No spinal tenderness. No costovertebral tenderness. Full range of motion. Skin: Warm, dry with normal turgor. Normal color with no rashes, no lesions, and no evidence of cellulitis. MS/ Extremity: Pulses equal, no cyanosis. Neurovascular intact. Full, normal range of motion. Neuro: Awake and alert, GCS 15, oriented to person, place, time, and situation. Cranial nerves II-XII grossly intact. Motor strength 5/5 in all extremities. Sensory grossly intact. Cerebellar exam normal. Normal gait. 19:18 Abdomen/GI: Inspection: abdomen appears normal, Bowel sounds: normal, in all quadrants, Palpation: soft, in all quadrants, mild abdominal tenderness, in all quadrants. Vital Signs: 18:08 BP 113 / 65; Pulse 96; Resp 18; Temp 99.0(TE); Pulse Ox 99% on R/A; Weight 71.67 kg; hj Height 5 ft. 0 in. (152.40 cm); Pain 4/10; 20:30 BP 109 / 69; Pulse 88; Resp 16; Temp 98.6; Pulse Ox 100% on R/A; Pain 3/10; ls4 18:08 Body Mass Index 30.86 (71.67 kg, 152.40 cm) hj MDM: 18:27 Patient medically screened. kb 19:20 Data reviewed: vital signs, nurses notes. Data interpreted: Pulse oximetry: on room air kb is 99 %. Interpretation: normal. 20:17 Counseling: I had a detailed discussion with the patient and/or guardian regarding: the kb historical points, exam findings, and any diagnostic results supporting the discharge/admit diagnosis, lab results, radiology results, the need for outpatient follow up, a family practitioner, to return to the emergency department if symptoms worsen or persist or if there are any questions or concerns that arise at home. 10/20 18:31 Order name: Basic Metabolic Panel; Complete Time: 19:17 kb 10/20 18:31 Order name: CBC with Diff; Complete Time: 19:11 kb 10/20 18:31 Order name: Hepatic Function; Complete Time: 19:17 kb 10/20 18:31 Order name: Lipase; Complete Time: 19:17 kb 10/20 18:38 Order name: Urine Dipstick--Ancillary (enter results) 10/20 18:38 Order name: Urine --Ancillary (enter results) 10/20 18:10 Order name: Urine Dipstick-Ancillary (obtain specimen); Complete Time: 18:38 10/20 18:10 Order name: Urine Test (obtain specimen); Complete Time: 18:38 10/20 18:31 Order name: IV Saline Lock; Complete Time: 19:08 kb 10/20 18:31 Order name: Labs collected and sent; Complete Time: 19:08 kb 10/20 18:31 Order name: Chest Single View XRAY; Complete Time: 19:34 kb 10/20 19:33 Order name: US Abdomen Limited kb Administered Medications: No medications were administered Disposition: 10/20/18 20:18 Discharged to Home. Impression: Generalized abdominal pain. - Condition is Stable. - Discharge Instructions: Abdominal Pain, Adult, [id number]. - Prescriptions for Bentyl 20 mg Oral Tablet - take 1 tablet by ORAL route every 6 hours As needed; 20 tablet. - Medication Reconciliation Form, Thank You Letter, Antibiotic Education, Prescription Opioid Use form. - Follow up: Emergency Department; When: As needed; Reason: Worsening of condition. Follow up: Private Physician; When: 2 - 3 days; Reason: Recheck today's complaints, Continuance of care, Re-evaluation by your physician. Signatures: Dispatcher [employer] EDMS Charla Schultz, CARPENTER ROUGH-C CARPENTER ROUGH-CkJitendra Prabhakar, RN RN Minerva Ji RN RN ls4 Corrections: (The following items were deleted from the chart) 20:33 20:18 10/20/2018 20:18 Discharged to Home. Impression: Generalized abdominal pain. ls4 Condition is Stable. Forms are Medication Reconciliation Form, Thank You Letter, Antibiotic Education, Prescription Opioid Use. Follow up: Emergency Department; When: As needed; Reason: Worsening of condition. Follow up: Private Physician; When: 2 - 3 days; Reason: Recheck today's complaints, Continuance of care, Re-evaluation by your physician. kb
--- NOTE | 2018-10-20 20:33 | RAD REPORT ---
EXAM DESCRIPTION: US - Abdomen Exam Limited - 10/20/2018 8:22 pm CLINICAL HISTORY: Abdominal pain COMPARISON: None. FINDINGS: No gallstones, sludge or other abnormalities within the gallbladder lumen. There is no wal l thickening or pericholecystic fluid. No common duct stone or biliary tree dilatation identified. IMPRESSION: Normal gallbladder and biliary tree ultrasound.
[2018-10-20 21:18] VITALS: BP 109/69; TEMP 98.6; O2SAT 100
== END 2018-10-20 20:33 | disposition home or self-care (01) ==
LOC: ER 18:01
DX: R10.84 Generalized abdominal pain (principal)
CPT/HCPCS: 36415; 71045; 76705; 80048; 80076; 81003; 81025; 83690; 85025; 99284

== ENCOUNTER 2019-03-09 05:43 | Emergency (ER) | payer OTHER ==
[2019-03-09] MEDS ORDERED: ACETAMINOPHEN 500 MG TAB ONE (06:24)
--- NOTE | 2019-03-09 07:30 | ER ---
Nurse's Notes [facility] Name: Linda Oneal Age: 23 yrs Sex: Female : 1995 Arrival Date: 03/09/2019 Time: 05:44 Bed 6 Private MD: Diagnosis: Fever, unspecified;Diarrhea, unspecified;Viral infection, unspecified Presentation: 03/09 05:55 Presenting complaint: Patient states: she has had fever, chills and diarrhea since last bb night with body aches and a headache pt took Motrin 400 mg approx 30 mins ago. Transition of care: patient was not received from another setting of care. Onset of symptoms was March 08, 2019. Risk Assessment: Do you want to hurt yourself or someone else? Patient reports no desire to harm self or others. Initial Sepsis Screen: Does the patient meet any 2 criteria? Temp <36.0*C (96.8*F)) or > 38.3*C (100.9*F). HR > 90 bpm. Yes Does the patient have a suspected source of infection? Yes: Other: unknown If YES to both, name of provider notified: Julián COSTELLO. Care prior to arrival: Medication(s) given: Motrin, 400 mg. 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 - Social history:: Smoking status: Patient/guardian denies using tobacco. - Ebola Screening: : No symptoms or risks identified at this time. Screenin:11 Abuse screen: Denies threats or abuse. Denies injuries from another. Nutritional tl1 screening: No deficits noted. Tuberculosis screening: No symptoms or risk factors identified. Fall Risk None identified. Assessment: 06:10 General: Appears in no apparent distress. uncomfortable, Behavior is calm, cooperative, tl1 appropriate for age. Pain: Complains of pain in generalized. Neuro: Level of Consciousness is awake, alert, obeys commands. Cardiovascular: Denies chest pain. Respiratory: Airway is patent Trachea midline Respiratory effort is even, unlabored, Breath sounds are clear bilaterally. GI: Abdomen is non-distended, Bowel sounds present X 4 quads. Abd is soft and non tender X 4 quads. Reports diarrhea. : No signs and/or symptoms were reported regarding the genitourinary system. EENT: No signs and/or symptoms were reported regarding the EENT system. Derm: Skin temperature is hot. 07:00 Reassessment: RECD REPORT FROM TREY BAI. 23YO HF P/W FEVER AND DIARRHEA. bp 08:10 Reassessment: PT D/C HOME AMBULATORY, DX WITH FEVER AND DIARRHEA. bp Vital Signs: 05:58 BP 114 / 80; Pulse 111; Resp 16 S; Temp 101.9(O); Pulse Ox 99% on R/A; Weight 67.13 kg bb (R); Height 5 ft. 0 in. (152.40 cm) (R); Pain 9/10; 06:13 BP 113 / 63; Pulse 101; Resp 17; Pulse Ox 98% on R/A; tl1 08:12 BP 115 / 75; Pulse 100; Resp 17; Temp 99.5; Pulse Ox 99% ; bp 05:58 Body Mass Index 28.90 (67.13 kg, 152.40 cm) bb ED Course: 05:44 Patient arrived in ED. ds1 05:54 Julián Villafuerte PA is PHCP. jr8 05:54 Jn Aly MD is Attending Physician. jr8 05:57 Triage completed. bb 05:58 Arm band placed on Patient placed in an exam room, on a stretcher, on pulse oximetry. bb 06:10 Renea Tamez, RICHARDSON is Primary Nurse. tl1 06:11 No provider procedures requiring assistance completed. Flu and/or RSV swab sent to lab. tl1 08:11 Patient has correct armband on for positive identification. Bed in low position. Call bp light in reach. Side rails up X2. 08:11 Patient did not have IV access during this emergency room visit. bp Administered Medications: 06:24 Drug: Tylenol 1000 mg Route: PO; tl1 08:08 Follow up: Response: No adverse reaction bp Outcome: 07:29 Discharge ordered by MD. romo 08:11 Discharged to home ambulatory. bp 08:11 Condition: stable 08:11 Discharge instructions given to patient, Instructed on discharge instructions, follow up and referral plans. Demonstrated understanding of instructions, follow-up care. 08:13 Patient left the ED. bp Signatures: Wanda Chowdhury ds1 Martha Cortez RN RN bb Julián Villafuerte PA PA jr8 Renea Tamez RN RN tl1 Juno Diamond RN RN bp
--- NOTE | 2019-03-09 07:30 | EDPHYS ---
Physician Documentation [facility] Name: Linda Oneal Age: 23 yrs Sex: Female : 1995 Arrival Date: 03/09/2019 Time: 05:44 Bed 6 Private MD: ED Physician Jn Aly HPI: 03/09 06:57 This 23 yrs old Female presents to ER via Ambulatory with complaints of Fever, jr8 Diarrhea. 06:57 The patient reports fever, that was measured at 101.9 degrees Fahrenheit. Onset: The jr8 symptoms/episode began/occurred last night. Modifying factors: The patient has had contact with sick other child. Associated signs and symptoms: Pertinent positives: diarrhea. Severity of symptoms: At their worst the symptoms were mild. Pt reports other three children are all sick with diarrhea and fever, seen at PCP and negative for flu/strep . 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 - Social history:: Smoking status: Patient/guardian denies using tobacco. - Ebola Screening: : No symptoms or risks identified at this time. ROS: 06:57 Constitutional: Negative for weight loss, + fever, chills, and body ache Eyes: jr8 Negative for injury, pain, redness, and discharge, ENT: Negative for injury, pain, and discharge, Neck: Negative for injury, pain, and swelling, Cardiovascular: Negative for chest pain, palpitations, and edema, Respiratory: Negative for shortness of breath, cough, wheezing, and pleuritic chest pain, Back: Negative for injury and pain, MS/Extremity: Negative for injury and deformity, Neuro: Negative for headache, weakness, numbness, tingling, and seizure. 06:57 Abdomen/GI: Positive for diarrhea, Negative for abdominal pain, nausea, vomiting. Exam: 06:58 Constitutional: This is a well developed, well nourished patient who is awake, alert, jr8 and in no acute distress. Head/Face: Normocephalic, atraumatic. Eyes: Pupils equal round and reactive to light, extra-ocular motions intact. Lids and lashes normal. Conjunctiva and sclera are non-icteric and not injected. Cornea within normal limits. Periorbital areas with no swelling, redness, or edema. ENT: Mucous membranes moist. Neck: Trachea midline, no thyromegaly or masses palpated, and no cervical lymphadenopathy. Supple, full range of motion without nuchal rigidity, or vertebral point tenderness. No Meningismus. Chest/axilla: Normal chest wall appearance and motion. Nontender with no deformity. No lesions are appreciated. Cardiovascular: Regular rate and rhythm with a normal S1 and S2. No gallops, murmurs, or rubs. Normal PMI, no JVD. No pulse deficits. Respiratory: Lungs have equal breath sounds bilaterally, clear to auscultation and percussion. No rales, rhonchi or wheezes noted. No increased work of breathing, no retractions or nasal flaring. Abdomen/GI: Soft, non-tender, with normal bowel sounds. No distension or tympany. No guarding or rebound. No evidence of tenderness throughout. Back: No spinal tenderness. No costovertebral tenderness. Full range of motion. Skin: Warm, dry with normal turgor. Normal color with no rashes, no lesions, and no evidence of cellulitis. MS/ Extremity: Pulses equal, no cyanosis. Neurovascular intact. Full, normal range of motion. Neuro: Awake and alert, GCS 15, oriented to person, place, time, and situation. Cranial nerves II-XII grossly intact. Motor strength 5/5 in all extremities. Sensory grossly intact. Cerebellar exam normal. Normal gait. Vital Signs: 05:58 BP 114 / 80; Pulse 111; Resp 16 S; Temp 101.9(O); Pulse Ox 99% on R/A; Weight 67.13 kg bb (R); Height 5 ft. 0 in. (152.40 cm) (R); Pain 9/10; 06:13 BP 113 / 63; Pulse 101; Resp 17; Pulse Ox 98% on R/A; tl1 08:12 BP 115 / 75; Pulse 100; Resp 17; Temp 99.5; Pulse Ox 99% ; bp 05:58 Body Mass Index 28.90 (67.13 kg, 152.40 cm) bb MDM: 05:54 Patient medically screened. jr8 07:08 ED course: Flu swab sent over one hour ago, lab reports sample still pending with eight jr8 minutes remaining. 07:28 Data reviewed: vital signs, nurses notes, lab test result(s), and as a result, I will jr8 discharge patient. Data interpreted: Pulse oximetry: is not applicable for this patient encounter. on room air is 98 %. Interpretation: normal. Counseling: I had a detailed discussion with the patient and/or guardian regarding: the historical points, exam findings, and any diagnostic results supporting the discharge/admit diagnosis, lab results, the need for outpatient follow up, a family practitioner. ED course: Pt tolerating PO, return precautions given, pt to FU with PCP, work note given per request. 03/09 06:05 Order name: Influenza Screen (a \T\ B); Complete Time: 07:38 [facility] 03/09 06:25 Order name: Urine Dipstick--Ancillary (enter results) 2 03/09 06:05 Order name: Urine Test (obtain specimen); Complete Time: 06:12 8 03/09 06:05 Order name: Urine Dipstick-Ancillary (obtain specimen); Complete Time: 06:12 8 03/09 06:25 Order name: Urine --Ancillary (enter results) 2 Administered Medications: 06:24 Drug: Tylenol 1000 mg Route: PO; tl1 08:08 Follow up: Response: No adverse reaction bp Disposition: 03/09/19 07:29 Discharged to Home. Impression: Fever, unspecified, Diarrhea, unspecified, Viral infection, unspecified. - Condition is Stable. - Discharge Instructions: Food Choices to Help Relieve Diarrhea, Adult, Diarrhea, Adult, Diarrhea, Adult, [id number], Infection Control in the Home. - Work release form, Medication Reconciliation Form, Thank You Letter form. - Follow up: Private Physician; When: 2 - 3 days; Reason: Recheck today's complaints, Re-evaluation by your physician. - Problem is new. - Symptoms have improved. Addendum: 03/14/2019 05:44 Co-signature as Attending Physician, Jn Aly MD I agree with the assessment and t w4 plan of care. Signatures: Dispatcher [employer] Martha Feldman RN RN Julián Hernandes PA PA jr8 Renea Tamez RN RN tl1 Juno Diamond RN RN bp Jn Aly MD MD tw4 Corrections: (The following items were deleted from the chart) 03/09 08:13 07:29 03/09/2019 07:29 Discharged to Home. Impression: Fever, unspecified; Diarrhea, bp unspecified; Viral infection, unspecified. Condition is Stable. Discharge Instructions: Food Choices to Help Relieve Diarrhea, Adult, Diarrhea, Adult, Diarrhea, Adult, [id number], Infection Control in the Home. Forms are Medication Reconciliation Form, Thank You Letter, Antibiotic Education, Prescription Opioid Use. Follow up: Private Physician; When: 2 - 3 days; Reason: Recheck today's complaints, Re-evaluation by your physician. Problem is new. Symptoms have improved. jr8
[2019-03-09 08:30] VITALS: BP 115/75; TEMP 99.5; O2SAT 99
[2019-03-09 08:48] LABS: Urine Blood TRACE (NEG); Urine Glucose NEGATIVE (NEG); Urine Protein TRACE (NEG); Urine pH 7.5 (5.0-7.0)
== END 2019-03-09 08:13 | disposition home or self-care (01) ==
LOC: ER 05:43
DX: B34.9 Viral infection, unspecified (principal); R19.7 Diarrhea, unspecified
CPT/HCPCS: 81003; 81025; 87804; 99283

== ENCOUNTER 2019-03-11 17:30 | Emergency (ER) | payer OTHER ==
--- NOTE | 2019-03-11 18:23 | ER ---
Nurse's Notes [facility] Name: Linda Oneal Age: 23 yrs Sex: Female : 1995 Arrival Date: 03/11/2019 Time: 17:32 Bed Waiting Private MD: Diagnosis: Presentation: 03/11 17:55 Presenting complaint: Patient states: I work at the [employer] and a dog bit my on my right la1 foot, laceration to dorsum of right foot, has been reported, not bleeding. Transition of care: patient was not received from another setting of care. Onset of symptoms was March 11, 2019. Risk Assessment: Do you want to hurt yourself or someone else? Patient reports no desire to harm self or others. Initial Sepsis Screen: Does the patient meet any 2 criteria? No. Patient's initial sepsis screen is negative. Does the patient have a suspected source of infection? No. Patient's initial sepsis screen is negative. Care prior to arrival: None. 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 - Social history:: Smoking status: Patient/guardian denies using tobacco. - Ebola Screening: : No symptoms or risks identified at this time. Vital Signs: 17:56 BP 108 / 73; Pulse 91; Resp 16; Temp 98.7; Pulse Ox 100% on R/A; Weight 66.22 kg; la1 Height 5 ft. 0 in. (152.40 cm); 17:56 Body Mass Index 28.51 (66.22 kg, 152.40 cm) la1 ED Course: 17:32 Patient arrived in ED. as 17:55 Arm band placed on right wrist. la1 17:56 Triage completed. la1 Administered Medications: No medications were administered Outcome: 18:23 Patient left the ED. la1 Signatures: Karrie Swanson Lee RN RN la1
[2019-03-11 18:27] VITALS: BP 108/73; TEMP 98.7; O2SAT 100
== END 2019-03-11 18:23 | disposition left against medical advice (07) ==
LOC: ER 17:30
DX: Z02.9 Encounter for administrative examinations, unspecified (principal)
CPT/HCPCS: 99281

== ENCOUNTER 2019-06-03 21:14 | Emergency (ER) | payer OTHER ==
--- OUTSIDE RECORDS SUMMARY | 2019-06-03 21:18 | XMS REPORT ---
:1995 [facility] [address] [place] [address] Dr. Krueger [address] [place] [id number] Care Team Providers Name Role Phone Unavailable Unavailable Unavailable Problems This patient has no known problems. Allergies, Adverse Reactions, Alerts This patient has no known allergies or adverse reactions. Medications This patient has no known medications.
[2019-06-03 22:05] LABS: Basophils % 0.3 % (0-1.3); Hematocrit 37.2 % (36.0-45.0); Lymphocytes % 15.1 % (15.3-44.8); MPV 10.5 fL (7.6-11.3); RBC Red Blood Cell Count 4.29 M/uL (3.86-4.86)
[2019-06-03 22:40] LABS: BUN Blood Urea Nitrogen 13 mg/dL (7-18); Bicarbonate 27 mmol/L (21-32); Glucose Level 82 mg/dL (74-106); HCG, Quantitative 44829 mIU/mL (1-3); Potassium 3.5 mmol/L (3.5-5.1); Sodium Level 138 mmol/L (136-145)
--- NOTE | 2019-06-03 23:03 | EDPHYS ---
Physician Documentation [facility] Name: Linda Oneal Age: 24 yrs Sex: Female : 1995 Arrival Date: 06/03/2019 Time: 21:17 Bed 7 Private MD: ED Physician Julio An HPI: 06/03 21:57 This 24 yrs old Female presents to ER via Ambulatory with complaints of sergio Vaginal Bleeding. 21:57 The patient presents with pelvic pain, vaginal bleeding that is light, moderate. Onset: sergio The symptoms/episode began/occurred 2 day(s) ago. Modifying factors: The symptoms are alleviated by nothing, the symptoms are aggravated by nothing. Associated signs and symptoms: The patient has no apparent associated signs or symptoms. Severity of symptoms: At their worst the symptoms were mild, in the emergency department the symptoms have resolved. The patient is sexually active, reportedly has a single partner. 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 - Coronavirus screen:: The patient has NOT traveled to [place], [place], or [place] in the past 14 days. Proceed with normal triage process as indicated. - Social history:: Smoking status: Patient denies any tobacco usage or history of. - Family history:: not pertinent. - Ebola Screening: : Patient negative for fever greater than or equal to 101.5 degrees Fahrenheit, and additional compatible Ebola Virus Disease symptoms Patient denies exposure to infectious person Patient denies travel to an Ebola-affected area in the 21 days before illness onset No symptoms or risks identified at this time. ROS: 21:57 Constitutional: Negative for fever, chills, and weight loss, Eyes: Negative for injury, sergio pain, redness, and discharge, ENT: Negative for injury, pain, and discharge, Neck: Negative for injury, pain, and swelling, Cardiovascular: Negative for chest pain, palpitations, and edema, Respiratory: Negative for shortness of breath, cough, wheezing, and pleuritic chest pain, Back: Negative for injury and pain, MS/Extremity: Negative for injury and deformity, Skin: Negative for injury, rash, and discoloration, Neuro: Negative for headache, weakness, numbness, tingling, and seizure, Psych: Negative for depression, anxiety, suicide ideation, homicidal ideation, and hallucinations, Allergy/Immunology: Negative for hives, rash, and allergies, Endocrine: Negative for neck swelling, polydipsia, polyuria, polyphagia, and marked weight changes, Hematologic/Lymphatic: Negative for swollen nodes, abnormal bleeding, and unusual bruising. 21:57 Abdomen/GI: Positive for abdominal pain, of the suprapubic area. Exam: 21:57 Constitutional: This is a well developed, well nourished patient who is awake, alert, sergio and in no acute distress. Head/Face: Normocephalic, atraumatic. Eyes: Pupils equal round and reactive to light, extra-ocular motions intact. Lids and lashes normal. Conjunctiva and sclera are non-icteric and not injected. Cornea within normal limits. Periorbital areas with no swelling, redness, or edema. ENT: Nares patent. No nasal discharge, no septal abnormalities noted. Tympanic membranes are normal and external auditory canals are clear. Oropharynx with no redness, swelling, or masses, exudates, or evidence of obstruction, uvula midline. Mucous membranes moist. Neck: Trachea midline, no thyromegaly or masses palpated, and no cervical lymphadenopathy. Supple, full range of motion without nuchal rigidity, or vertebral point tenderness. No Meningismus. Chest/axilla: Normal chest wall appearance and motion. Nontender with no deformity. No lesions are appreciated. Cardiovascular: Regular rate and rhythm with a normal S1 and S2. No gallops, murmurs, or rubs. Normal PMI, no JVD. No pulse deficits. Respiratory: Lungs have equal breath sounds bilaterally, clear to auscultation and percussion. No rales, rhonchi or wheezes noted. No increased work of breathing, no retractions or nasal flaring. Abdomen/GI: Soft, non-tender, with normal bowel sounds. No distension or tympany. No guarding or rebound. No evidence of tenderness throughout. Back: No spinal tenderness. No costovertebral tenderness. Full range of motion. Skin: Warm, dry with normal turgor. Normal color with no rashes, no lesions, and no evidence of cellulitis. MS/ Extremity: Pulses equal, no cyanosis. Neurovascular intact. Full, normal range of motion. Neuro: Awake and alert, GCS 15, oriented to person, place, time, and situation. Cranial nerves II-XII grossly intact. Motor strength 5/5 in all extremities. Sensory grossly intact. Cerebellar exam normal. Normal gait. Psych: Awake, alert, with orientation to person, place and time. Behavior, mood, and affect are within normal limits. 21:57 : CVA tenderness, is absent, Pelvic Exam: is not necessary for this patient. Vital Signs: 21:30 BP 108 / 62; Pulse 86; Resp 16; Temp 98.2; Pulse Ox 100% on R/A; Weight 68.04 kg; iw Height 5 ft. (152.40 cm); 22:30 BP 112 / 75; Pulse 75; Resp 15; Pulse Ox 100% on R/A; vc 23:43 BP 103 / 52; Pulse 62; Resp 16 S; Pulse Ox 100% on R/A; jd3 21:30 Body Mass Index 29.29 (68.04 kg, 152.40 cm) iw MDM: 21:33 Patient medically screened. [facility] 21:57 Data reviewed: vital signs, nurses notes, lab test result(s), radiologic studies, sergio ultrasound. 06/03 21:42 Order name: Quantitative Hcg; Complete Time: 23:01 [facility] 06/03 21:42 Order name: Abo/rh Typing; Complete Time: 23: [facility] 06/03 21:42 Order name: Basic Metabolic Panel; Complete Time: 23: [facility] 06/03 21:42 Order name: CBC with Diff; Complete Time: 23:01 [facility] 06/03 21:42 Order name: US Transvaginal Ob [facility] 06/03 21:42 Order name: Urine Test (obtain specimen); Complete Time: 22:04 [facility] 06/03 21:42 Order name: IV Saline Lock; Complete Time: 22:05 [facility] 06/03 21:42 Order name: Labs collected and sent; Complete Time: 22:05 [facility] 06/03 21:42 Order name: NPO; Complete Time: :45 [facility] 06/03 21:42 Order name: Urine Dipstick-Ancillary (obtain specimen); Complete Time: 22:05 sergio Administered Medications: 23:26 Drug: NS 0.9% 1000 ml Route: IV; Rate: 1 bolus; Site: right antecubital; jd3 23:45 Follow up: Response: No adverse reaction; IV Status: Completed infusion vc 23:55 Follow up: Response: No adverse reaction; IV Status: Completed infusion; IV Intake: jd3 1000ml Disposition: 06/03/19 23:03 Discharged to Home. Impression: Threatened - 6 week and 2 days. - Condition is Stable. - Discharge Instructions: Threatened Miscarriage, Vaginal Bleeding During , First Trimester, First Trimester of , Gtdi-sd-Dlfm, First Trimester of , Threatened Miscarriage, Afgj-bh-Hacl, Pelvic Rest. - Prescriptions for Vitamin 27- 0.8 mg Oral Tablet - take 1 tablet by ORAL route once daily; 30 tablet. - Medication Reconciliation Form, Thank You Letter, Antibiotic Education, Prescription Opioid Use form. - Follow up: Private Physician; When: 2 - 3 days; Reason: Recheck today's complaints, Continuance of care, Re-evaluation by your physician. - Problem is new. - Symptoms are resolved. Signatures: Dispatcher [employer] EDJulio Anand MD MD cha Williams, Irene, RN RN iw Davies, Jonathon, RN RN jd3 Calcote, Vanessa RN vc Corrections: (The following items were deleted from the chart) 23:58 23:03 06/03/2019 23:03 Discharged to Home. Impression: Threatened - 6 week and jd3 2 days. Condition is Stable. Discharge Instructions: Threatened Miscarriage, Vaginal Bleeding During , First Trimester, First Trimester of , Jrcx-yh-Mzba, First Trimester of , Threatened Miscarriage, Zary-cl-Sbmp, Pelvic Rest. Prescriptions for Vitamin 27-0.8 mg Oral Tablet - take 1 tablet by ORAL route once daily; 30 tablet. and Forms are Medication Reconciliation Form, Thank You Letter, Antibiotic Education, Prescription Opioid Use. Follow up: Private Physician; When: 2 - 3 days; Reason: Recheck today's complaints, Continuance of care, Re-evaluation by your physician. Problem is new. Symptoms are resolved. sergio
--- NOTE | 2019-06-03 23:03 | ER ---
Nurse's Notes [facility] Name: Linda Oneal Age: 24 yrs Sex: Female : 1995 Arrival Date: 06/03/2019 Time: 21:17 Bed 7 Private MD: Diagnosis: Threatened -6 week and 2 days Presentation: 06/03 21:27 Presenting complaint: Patient states: 3 days of spotting and now is bleeding, is brown iw and clotting , found out she was 2 weeks ago, sees doctor in June, also has diarrhea and back pain , LMP=11-29-19, has irregular periods , G7, P3. Transition of care: patient was not received from another setting of care. Onset of symptoms was May 31, 2019. Risk Assessment: Do you want to hurt yourself or someone else? Patient reports no desire to harm self or others. Initial Sepsis Screen: Does the patient meet any 2 criteria? No. Patient's initial sepsis screen is negative. Does the patient have a suspected source of infection? No. Patient's initial sepsis screen is negative. Care prior to arrival: None. 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 - Coronavirus screen:: The patient has NOT traveled to [place], [place], or [place] in the past 14 days. Proceed with normal triage process as indicated. - Social history:: Smoking status: Patient denies any tobacco usage or history of. - Family history:: not pertinent. - Ebola Screening: : Patient negative for fever greater than or equal to 101.5 degrees Fahrenheit, and additional compatible Ebola Virus Disease symptoms Patient denies exposure to infectious person Patient denies travel to an Ebola-affected area in the 21 days before illness onset No symptoms or risks identified at this time. Screenin:56 Abuse screen: Denies threats or abuse. Nutritional screening: No deficits noted. jd3 Tuberculosis screening: No symptoms or risk factors identified. Fall Risk IV access (20 points). Ambulatory Aid- None/Bed Rest/Nurse Assist (0 pts). Gait- Normal/Bed Rest/Wheelchair (0 pts) Mental Status- Oriented to own ability (0 pts). Total Herrera Fall Scale indicates No Risk (0-24 pts). Assessment: 22:08 Reassessment: Patient to ultrasound via wheelchair. vc 22:30 General: Appears in no apparent distress. uncomfortable, Behavior is calm, cooperative. vc Cardiovascular: Denies chest pain, Patient's skin is warm and dry. Respiratory: Airway is patent Respiratory effort is even, unlabored. GI: No signs and/or symptoms were reported involving the gastrointestinal system. : Reports vaginal bleeding that is bright red, heavy flow. EENT: No deficits noted. Derm: Skin temperature is warm. Musculoskeletal: Circulation, motion, and sensation intact. Range of motion: intact in all extremities. 23:54 Reassessment: Patient appears in no apparent distress at this time. Patient and/or jd3 family updated on plan of care and expected duration. Pain level reassessed. Patient is alert, oriented x 3, equal unlabored respirations, skin warm/dry/pink. pt reported understanding of discharge instructions, even and steady gait upon discharge. Patient states feeling better. Vital Signs: 21:30 BP 108 / 62; Pulse 86; Resp 16; Temp 98.2; Pulse Ox 100% on R/A; Weight 68.04 kg; iw Height 5 ft. (152.40 cm); 22:30 BP 112 / 75; Pulse 75; Resp 15; Pulse Ox 100% on R/A; vc 23:43 BP 103 / 52; Pulse 62; Resp 16 S; Pulse Ox 100% on R/A; jd3 21:30 Body Mass Index 29.29 (68.04 kg, 152.40 cm) iw ED Course: 21:17 Patient arrived in ED. jg7 21:29 Triage completed. iw 21:30 Arm band placed on. iw 21:33 Julio An MD is Attending Physician. sergio 21:38 Tatyana He RN is Primary Nurse. vc 22:05 Inserted saline lock: 20 gauge in right antecubital area, using aseptic technique. ar5 Blood collected. 22:40 US Transvaginal Ob In Process Unspecified. EDMS 23:55 No provider procedures requiring assistance completed. IV discontinued, intact, vc bleeding controlled, No redness/swelling at site. Pressure dressing applied. 23:56 Patient has correct armband on for positive identification. Bed in low position. Call jd3 light in reach. Side rails up X 1. Adult w/ patient. Administered Medications: 23:26 Drug: NS 0.9% 1000 ml Route: IV; Rate: 1 bolus; Site: right antecubital; jd3 23:45 Follow up: Response: No adverse reaction; IV Status: Completed infusion vc 23:55 Follow up: Response: No adverse reaction; IV Status: Completed infusion; IV Intake: jd3 1000ml Intake: 23:55 IV: 1000ml; Total: 1000ml. jd3 Outcome: 23:03 Discharge ordered by . sergio 23:56 Discharged to home ambulatory. jd3 23:56 Condition: stable 23:56 Discharge instructions given to patient, Instructed on discharge instructions, follow up and referral plans. medication usage, Demonstrated understanding of instructions, follow-up care, medications, Prescriptions given X 1. 23:58 Patient left the ED. jd3 Signatures: Dispatcher [employer] EDMS Julio An MD MD cha Williams, Irene, RN RN iw Davies, Jonathon, RN RN jd3 Robles, Autumn ar5 Gutierrez, Jessica jg7 Calcote, Vanessa, RN RN vc Corrections: (The following items were deleted from the chart) 06/04 02:55 01:34 General: vc vc
[2019-06-03] MEDS ORDERED: NA CHLORIDE 0.9% 1,000 ML ONE (23:19)
[2019-06-04 00:42] VITALS: TEMP 98.2; O2SAT 100
[2019-06-04 00:43] VITALS: BP 103/52
--- NOTE | 2019-06-04 11:27 | RAD REPORT ---
EXAM DESCRIPTION: US - Transvaginal OB - 06/03/2019 10:40 pm CLINICAL HISTORY: ABD PAIN Pelvic pain COMPARISON: No comparisons FINDINGS: A single gestational sac is seen within the uterus. The shape of the sac is within normal limits for gestational age. Within the sac is a single pole with crown-rump length of 5 mm, cor relating to estimated gestational age of 6 weeks and 2 days. Estimated date of delivery is 01/25/2020 . Heart rate is 126 BPM. The placenta is not yet developed due to early gestational age. The maternal adnexa and left ovary are within normal limits. Normal Doppler blood flow was demonstrat ed to the left ovary. The right ovary was obscured by bowel gas. IMPRESSION: Single live early intrauterine gestation with estimated gestational age of 6 weeks 2 day s, DONN 01/25/2020. No unusual or unexpected finding.
== END 2019-06-03 23:58 | disposition home or self-care (01) ==
LOC: ER 21:14
DX: O20.0 Threatened abortion (principal); Z3A.01 Less than 8 weeks gestation of pregnancy
CPT/HCPCS: 85025; 80048; 36415; 86900; 86901; 84702; 76817; 99284; J7030

== ENCOUNTER 2020-12-14 16:27 | Emergency (ER) | payer SELFPAY ==
--- OUTSIDE RECORDS SUMMARY | 2020-12-14 16:31 | XMS REPORT | Continuity of Care Document ---
:1995 Author Organization [facility] t Address 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 6-18 st borderline borderline 00:00: Ho spita personalit personalit 00 l y disorder y disorder in adult in adult PID (acute PID (acute Disease Active M ethodi pelvic pelvic 6-18 st inflammato inflammato 00:00: Ho spita ry ry 00 l disease) disease) 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, disorder, 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 Allergies, Adverse Reactions, Alerts Allergy Allergy Status Severity Reaction(s) Onset Inactive Treating Comm ents Source Name Type Date Date Clinician No Known DA Active [facility] [place] Family History Family Member Diagnosis Comments Start Date Stop Date Source Natural brother Dementia [facility] Natural father Bipolar disorder Meth [facility] Social History Social Habit Start Date Stop Date Quantity Comments Source Alcohol intake 2016-10-25 2016-10-25 Current drinker [facility] 00:00:00 00:00:00 of [facility] (finding) Alcohol Comment 2016-10-25 2016-10-25 Pt states drinks [facility] 00:[facility]:00 00:00:00 2 shots per Hospital month Sex Assigned At [birth year] [facility] Smoking Status Start Date Stop Date Source [facility] smoker [facility] Medications Ordered Filled Start Stop Current Ordering Indication Dosage Frequency Signature Comments Components Source Medication Medication Date Date Medication? Clinician (SIG) Name Name ibuprofen Yes 400mg Take 400 Met hodi (ADVIL,MOTR 6-[address] [place]) 400 MG 21:16: mouth as Hos beth tablet 06 needed for l headaches. multivitami Yes 1{tbl} QD Take 1 Me thodi n with 6-[address] minerals 21:16: mouth Hospita tablet 06 daily. l Takes One-A-Day women's Procedures This patient has no known procedures. Encounters Start End Encounter Admission Attending Care Care Encounter Source Date/Time Date/Time Type Type Clinicians Facility Department ID 2020-07-31 2020-07-31 Letter Doctor FARR [id number] 00:00:00 00:00:00 (Out) Unassigned, [place] [id number] [place] [facility] [id number] 2020-07-31 2020-07-31 Gisele [id number] 00:00:00 00:00:00 (Out) Unassigned, [place]OOL [id number] [place] [facility] [id number] Results Test Description Test Time Test Comments Results Result Comments Source FALLOPIAN 2020-01-19 TUBE,STERILIZATION 13:38:00 RUN DATE: 01/20/20 [facility] PAGE 1 RUN TIME: 1750 Specimen Inquiry RUN USER: INTERFACE PAT IENT: FRANCY SINGH LOC: KOREY U #: [id number] AGE/SX: 24/F ROOM: [facility] RE01/18/20REG DR: Ney Walls MD : [birth year] BED: A DIS: STATUS: ADM IN TLOC: SPEC #: [id number] RECD: 01/18/20 STATUS: BLANKA MCCARTHY #: [id number] ZAIN: 01/18/20- SUBM DR: Ney Walls MD ENTERED: 01/18/20 SP TYPE: FALLST TEA DR: ORDERED: LEVEL II SURGIC/2 CODES: F03331 - FALLOPIAN TUBE PROCEDURES: LEVEL II SURGIC (Incomplete) TISSUES: FALLOPIAN TUBE, NOS - BILATERAL FALLOPIAN TUBES CLINICAL HISTORY 24 year old, , repeat section (wpd) FINAL DIAGNOSIS Specimen #1 right fallopian tube, segmental resection: - no pathologic alterations - completely transected lumen demonstrated Specimen #2 left fallopian tube, segmental resection: - no pathologic alterations - completely transected lumen demonstrated CPT code(s): 82941 x2 cds/kr GROSS DESCRIPTION ANATOMIC SOURCE OF TISSUE (per Requisition): Bilateral fallopian tube (received in 2 containers) Each specimen is labeled with the patient's name and medical record number. Specimen #1 is designated "right fallopian tube" and consists of a 6 x 0.5 x 0.5 cm segment of roy fallopian tube with fimbriae. The entire fimbriae and one cross-section of the tube are submitted in A1. Specimen #2 is designated "left fallopian tube" and consists of a 0.9 x 0.6 x 0.4 cm segment of roy fallopian tube with no fimbriae. It is transversely sectioned into three pieces and submitted in toto in B1. shayla/wpd 01/18/20 CONTINUED ON NEXT PAGE RUN DATE: 01/20/20 [facility] PAGE 2 RUN TIME: 1751 Specimen Inquiry RUN USER: INTERFACE GLENN Stoddard #: [id number] PATIENT: FRANCY SINGH #[id number] (Continued)-------- -------- Signed Saulo Huerta 01/19/20 1338 END OF REPORT HGB HCT 2020-01-19 08:17:00 Test Item Value Reference Range Interpretation Comme nts HEMOGLOBIN (test code = HGB) 8.3 g/dL 10.7-13.9 L Results verified by repeat analysis HEMATOCRIT (test code = HCT) 25.9 % 32.1-42.1 L Results verified by repeat analysis AG HEPATITIS B [id number] 15:20:00 Test Item Value Reference Range Interpretation Comments AG HEPATITIS B SURFACE (test code NONREACTIVE NONREACTIVE = HBSAG) : *IS CONSENT FORM SIGNED FOR HIV TESTING? YAB [id number] 15:20:00 Test Item Value Reference Range Interpretation Comments AB TREPONEMA (test code = TREPAB) NONREACTIVE NONREACTIVE : *IS CONSENT FORM SIGNED FOR HIV TESTING? YAB HIV 1 15:20:00 Test Item Value Reference Range Interpretation Comments AB HIV 1 2 (test NONREACTIVE NONREACTIVE Done by Juany Clarkr code = VSL43BY) 4th Gen HIV Ag/Ab Combo Screen : *IS CONSENT FORM SIGNED FOR HIV TESTING? YAG HEPATITIS B [id number] 14:49:00 Test Item Value Reference Range Interpretation Comments AG HEPATITIS B SURFACE (test code NONREACTIVE NONREACTIVE = HBSAG) : *IS CONSENT FORM SIGNED FOR HIV TESTING? YAB [id number] 14:49:00 Test Item Value Reference Range Interpretation Comments AB TREPONEMA (test code = TREPAB) NONREACTIVE NONREACTIVE : *IS CONSENT FORM SIGNED FOR HIV TESTING? YAB HIV 1 14:49:00 Test Item Value Reference Range Interpretation Comments AB HIV 1 2 (test code = [id number]) NONREACTIVE : *IS CONSENT FORM SIGNED FOR HIV TESTING? YCOVID 19 Asymptomatic IH AG 2020-01-16 14:12:00 Test Item Value Reference Range Interpretation Comments COVID 19 NEGATIVE NEGATIVE This test has b een Asymptomatic IH AG authorize d only for the (test code = detection ofpro teins from COVNONPUIAG) SARS-CoV-2, not for any other viruses orpathogens. N egative results should be treated as presumptive andconfirmed wi th a molecular assay , if necessary for patientmanageme nt. Negative result s do not rule out COVID- 19 andshould not b e used as the sole basis for treatment orpat ient management deci sions, including infec tion controldecision s. Negative result s should be considered i n thecontext of a patient's recent exposure s, history and thepresence of clinical signs and symptoms consis tent withCOVID-19. T his test has not been FD A cleared or approved; th e test hasbeen authori zed by FDA under an Emerge ncy Use Authorization(E UA) for use by graeme jimenez certified under the CLIA thatmeet the re quirements to perform mode rate, high or waivedcomple xity tests. This sarah t is authorized for use at thePoint of Car e (POC), i.e., in patien t care settingsoperati ng under a CLIA Certificat e of Waiver, Certifi caio ofCompliance, o r Certificate of Accreditation. This test is only authori zed for the duration of thedeclaration that circumstances e xist justifying theauthorizatio n of emergency use o f in vitro diagnostic test sfor detection and/o r diagnosis of CO VID-19 under Qkdsfte52 4(b)(1) of the Act, 21 U.S .C. 360bbb-3(b)(1), unless theauthorizatio n is terminated or r evoked sooner. CBC W/AUTO [id number] 14:01:00 Test Item Value Reference Range Interpretation Comments WHITE BLOOD CELL (test code = WBC) 6.8 K/mm3 6.6-12.1 N RED BLOOD CELL (test code = RBC) 4.04 M/mm3 3.45-5.01 N HEMOGLOBIN (test code = HGB) 12.0 g/dL 10.7-13.9 N HEMATOCRIT (test code = HCT) 37.1 % 32.1-42.1 N MEAN CELL VOLUME (test code = MCV) 92 fL 84.1-94.8 N MEAN CELL HGB (test code = MCH) 29.7 pg 27-35 N MEAN CELL HGB CONCETRATION (test 32.3 gm/dL 32.2-34.1 N code = MCHC) RED CELL DISTRIBUTION WIDTH (test 16.4 % 12.4-16.5 N code = RDW) PLATELET COUNT (test code = PLT) 154 K/mm3 133-385 N MEAN PLATELET VOLUME (test code = 13.1 fl 9.1-12.7 H MPV) NEUTROPHIL % (test code = NT%) 74.3 % 56.5-79.4 N LYMPHOCYTE % (test code = LY%) 15.9 % 14.3-34.3 N MONOCYTE % (test code = MO%) 7.9 % 5.1-10.4 N EOSINOPHIL % (test code = EO%) 1.2 % 0.1-3.0 N BASOPHIL % (test code = BA%) 0.3 % 0.1-1.0 N NEUTROPHIL # (test code = NT#) 5.0 K/mm3 LYMPHOCYTE # (test code = LY#) 1.1 K/mm3 MONOCYTE # (test code = MO#) 0.5 K/mm3 EOSINOPHIL # (test code = EO#) 0.08 K/mm3 BASOPHIL # (test code = BA#) 0.0 K/mm3 RBC MORPHOLOGY REQUIRED (test code NORMAL NORMAL = RBCM) PLATELET MORPHOLOGY REQUIRED (test NORMAL NORMAL code = PLTMR)
--- NOTE | 2020-12-14 18:04 | RAD REPORT ---
EXAM DESCRIPTION: RAD - Chest Pa And Lat (2 Views) - 12/14/2020 5:51 pm CLINICAL HISTORY: COUGH Chest pain. COMPARISON: <Comparisons> FINDINGS: The lungs are clear. The heart is normal in size. No displaced fractures. IMPRESSION: No acute or concerning finding suspected.
--- NOTE | 2020-12-14 20:06 | ER ---
Nurse's Notes [facility] Name: Linda Oneal Age: 25 yrs Sex: Female : 1995 Arrival Date: 12/14/2020 Time: 16:33 Bed DIS2 Private MD: Diagnosis: SARS-associated coronavirus as the cause of diseases classified elsewhere;Diarrhea, unspecified Presentation: 12/14 17:20 Chief complaint: Patient states: cough, SOB, fever, diarrhea x 6 days. Pt stated her kg whole family has covid. Coronavirus screen: Client denies travel out of the [place] in the last 14 days. At this time, unable to obtain information related to travel outside the [place] At this time, the client does not indicate any symptoms associated with coronavirus-19. Coronavirus screen: Client presents with at least one sign or symptom that may indicate coronavirus-19. Standard/surgical mask placed on the client. Provider contacted for isolation considerations. At this time, the client does not indicate any symptoms associated with coronavirus-19. Ebola Screen: Patient negative for fever greater than or equal to 101.5 degrees Fahrenheit, and additional compatible Ebola Virus Disease symptoms Patient denies exposure to infectious person. Patient denies travel to an Ebola-affected area in the 21 days before illness onset. Initial Sepsis Screen: Does the patient meet any 2 criteria? No. Patient's initial sepsis screen is negative. Does the patient have a suspected source of infection? Yes: Productive cough/pneumonia. Risk Assessment: Do you want to hurt yourself or someone else? Patient reports no desire to harm self or others. Onset of symptoms was December 09, 2020. 17:20 Method Of Arrival: Ambulatory kg 17:20 Acuity: FROYLAN 3 kg Triage Assessment: 17:22 General: Appears in no apparent distress. Behavior is calm, cooperative, appropriate kg for age, quiet. Pain: Denies pain. Respiratory: Reports shortness of breath cough that is productive, Onset: The symptoms/episode began/occurred gradually, the patient has mild shortness of breath. 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 - Social history:: Smoking status: Patient/guardian denies using tobacco, the patient reports quitting approximately 3 years ago. Screenin:37 Abuse screen: Denies threats or abuse. Nutritional screening: No deficits noted. bb Tuberculosis screening: No symptoms or risk factors identified. Fall Risk None identified. Assessment: 20:37 General: Appears in no apparent distress. Behavior is calm, cooperative. Pain: Denies bb pain. Neuro: Level of Consciousness is awake, alert, obeys commands, Oriented to person, place, time, situation. Cardiovascular: Capillary refill < 3 seconds Patient's skin is warm and dry. Respiratory: Airway is patent Respiratory effort is even, unlabored. GI: No signs and/or symptoms were reported involving the gastrointestinal system. Derm: Skin is pink, warm \T\ dry. Musculoskeletal: Circulation, motion, and sensation intact. 20:38 Reassessment: Patient is alert, oriented x 3, equal unlabored respirations, skin bb warm/dry/pink. pt verbalized understanding of and agrees to plan of care discharge instructions given pt ambulated with steady gait to exit. Vital Signs: 17:20 Pulse 101; Resp 20; Temp 99.3; Pulse Ox 100% on R/A; Weight 74.84 kg (R); Height 5 ft. kg 0 in. (152.40 cm) (R); Pain 0/10; 20:44 BP 110 / 67; Pulse 85; Resp 18 S; Temp 98.6(O); Pulse Ox 96% on R/A; bb 17:20 Body Mass Index 32.22 (74.84 kg, 152.40 cm) kg ED Course: 16:33 Patient arrived in ED. mr 17:22 Triage completed. kg 17:22 Arm band placed on right wrist. kg 17:51 XRAY Chest Pa And Lat (2 Views) In Process Unspecified. EDMS 19:41 Julio Gill PA is PHCP. cp 19:41 Christiano Stewart MD is Attending Physician. cp 20:36 Martha Cortez, RICHARDSON is Primary Nurse. bb 20:37 Patient has correct armband on for positive identification. bb 20:39 No provider procedures requiring assistance completed. Patient did not have IV access bb during this emergency room visit. Administered Medications: No medications were administered Outcome: 20:05 Discharge ordered by . onur 20:39 Discharged to home ambulatory, with family. bb 20:39 Condition: stable 20:39 Discharge instructions given to patient, Instructed on discharge instructions, follow up and referral plans. medication usage, Demonstrated understanding of instructions, follow-up care, medications, Prescriptions given X 2. 20:39 Patient left the ED. bb Signatures: Dispatcher [employer] EDHI Gerber Margret mr Martha Cortez RN RN bb Julio Gill PA PA cp Graham, Kristen, RICHARDSON RN kg Corrections: (The following items were deleted from the chart) 17:24 17:22 PMHx: PID; kg kg 20:45 20:38 BP 104 / 65; Pulse 80bpm; Resp 18bpm; Spontaneous; Pulse Ox 96% RA; Temp 99F bb Oral; bb
--- NOTE | 2020-12-14 20:06 | EDPHYS ---
Physician Documentation [facility] Name: Linda Oneal Age: 25 yrs Sex: Female : 1995 Arrival Date: 12/14/2020 Time: 16:33 Bed DIS2 Private MD: ED Physician Christiano Stewart HPI: 12/14 20:00 This 25 yrs old Female presents to ER via Ambulatory with complaints of cp Breathing Difficulty, Cough, Fatigue. 20:00 The patient has shortness of breath with light activity. cp 20:00 Onset: The symptoms/episode began/occurred 6 day(s) ago. Duration: The symptoms are cp continuous. Associated signs and symptoms: Pertinent positives: non-productive cough, Pertinent negatives: chest pain, productive cough, fever. Severity of symptoms: in the emergency department the symptoms are unchanged despite home interventions. 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 - Social history:: Smoking status: Patient/guardian denies using tobacco, the patient reports quitting approximately 3 years ago. ROS: 20:00 Eyes: Negative for injury, pain, redness, and discharge. cp 20:00 Constitutional: Positive for body aches, fatigue, Negative for chills, fever, poor PO intake. 20:00 ENT: Positive for sore throat, Negative for drainage from ear(s), ear pain, difficulty swallowing, difficulty handling secretions. 20:00 Neck: Negative for pain with movement, pain at rest, stiffness. 20:00 Cardiovascular: Negative for chest pain. 20:00 Respiratory: Positive for cough, with no reported sputum, shortness of breath, on exertion. Negative for wheezing. 20:00 Abdomen/GI: Positive for diarrhea, Negative for abdominal pain, vomiting, constipation. 20:00 Neuro: Negative for altered mental status, headache, syncope, weakness. 20:03 All other systems are negative. cp Exam: 20:03 Head/Face: Normocephalic, atraumatic. cp 20:03 Constitutional: The patient appears in no acute distress, alert, awake, non-toxic, well developed, well nourished. 20:03 Eyes: Periorbital structures: appear normal, Conjunctiva: normal, no exudate, no injection, Sclera: no appreciated abnormality, Lids and lashes: appear normal, bilaterally. 20:03 ENT: External ear(s): are unremarkable, Nose: is normal, Posterior pharynx: Airway: no evidence of obstruction, patent. 20:03 Neck: ROM/movement: is normal, is supple, no meningismus, no nuchal rigidity. 20:03 Chest/axilla: Inspection: normal. 20:03 Cardiovascular: Rate: tachycardic, Rhythm: regular. 20:03 Respiratory: the patient does not display signs of respiratory distress, Respirations: normal, no use of accessory muscles, no retractions, labored breathing, is not present, Breath sounds: bronchial sounds, that are mild, are heard diffusely, decreased breath sounds, are not appreciated, stridor, is not appreciated, wheezing: is not appreciated. 20:03 Abdomen/GI: Exam negative for discomfort, distension, guarding, Inspection: abdomen appears normal. 20:03 Neuro: Orientation: to person, place \T\ time. Mentation: is normal. Vital Signs: 17:20 Pulse 101; Resp 20; Temp 99.3; Pulse Ox 100% on R/A; Weight 74.84 kg (R); Height 5 ft. kg 0 in. (152.40 cm) (R); Pain 0/10; 20:44 BP 110 / 67; Pulse 85; Resp 18 S; Temp 98.6(O); Pulse Ox 96% on R/A; bb 17:20 Body Mass Index 32.22 (74.84 kg, 152.40 cm) kg MDM: 19:55 Patient medically screened. cp 20:00 Differential diagnosis: Bronchitis pneumonia, Pneumothorax pulmonary edema, Pulmonary cp Embolism Sepsis respiratory failure, COVID-19. 20:06 Data reviewed: vital signs, nurses notes, lab test result(s), radiologic studies, plain cp films. 20:06 Test interpretation: by ED physician or midlevel provider: plain radiologic studies. cp Counseling: I had a detailed discussion with the patient and/or guardian regarding: the historical points, exam findings, and any diagnostic results supporting the discharge/admit diagnosis, lab results, radiology results, to return to the emergency department if symptoms worsen or persist or if there are any questions or concerns that arise at home. ED course: VSS. Patient appears non-toxic and no signs of respiratory distress. Will discharge to home for continued monitoring. 12/14 17:26 Order name: XRAY Chest Pa And Lat (2 Views); Complete Time: 18:26 kg 12/14 18:26 Interpretation: Report reviewed. cp 12/14 19:40 Order name: SARS-COV-2 RT PCR; Complete Time: 19:41 EDMS 12/14 19:41 Interpretation: Results reviewed. cp Administered Medications: No medications were administered Disposition: 12/15 18:13 Co-signature as Attending Physician, Christiano Stewart MD I agree with the assessment and kdr plan of care. Disposition Summary: 12/14/20 20:05 Discharge Ordered Location: Home cp Problem: new cp Symptoms: are unchanged cp Condition: Stable cp Diagnosis - SARS-associated coronavirus as the cause of diseases classified elsewhere cp - Diarrhea, unspecified cp Followup: cp - With: Private Physician - When: 2 - 3 days - Reason: Worsening of condition Discharge Instructions: - Discharge Summary Sheet cp - Food Choices to Help Relieve Diarrhea, Adult cp - Diarrhea, Adult cp - COVID-19 cp - Things to Know about the COVID-19 Pandemic - [facility] cp - 10 Things You Can Do to Manage Your COVID-19 Symptoms at Home - [facility] cp - COVID-19: Quarantine vs. Isolation - [facility] cp - Prevent the Spread of COVID-19 if You Are Sick - [facility] cp Forms: - Medication Reconciliation Form cp - Thank You Letter cp - Antibiotic Education cp - Prescription Opioid Use cp Prescriptions: - Tessalon Perles 100 mg Oral Capsule - take 2 capsule by ORAL route every 8 hours As needed; 30 capsule; Refills: 0, cp Product Selection Permitted Signatures: Dispatcher [employer] EDMS Christiano Stewart MD MD kdr Julio Gill PA PA cp Nely Wyatt, RICHARDSON RN kg Corrections: (The following items were deleted from the chart) 12/14 17:24 17:22 PMHx: PID; kg kg 18:51 18:49 CORONAVIRUS ordered. EDSC EDMS
[2020-12-14 21:05] LABS: Urine Blood Trace-intact (Negative); Urine Glucose Negative (Negative); Urine Protein Negative (Negative)
[2020-12-14 21:16] VITALS: BP 104/65; TEMP 99; O2SAT 96
== END 2020-12-14 20:39 | disposition home or self-care (01) ==
LOC: ER 16:27
DX: U07.1 COVID-19 (principal); R19.7 Diarrhea, unspecified
CPT/HCPCS: 71046; 81003; 99283; U0003

== ENCOUNTER 2021-06-06 10:36 | Emergency (ER) | payer OTHER, SELFPAY ==
--- OUTSIDE RECORDS SUMMARY | 2021-06-06 10:39 | XMS REPORT | Continuity of Care Document ---
:1995 Author Organization [facility] t Address [address] [place] [address] Care Team Providers Name Role Phone Asked, Pcp Primary Care Physician Unavailable Juany Walls Attending Clinician Unavailable ADRYAN VILLASENOR Attending Clinician Unavailable Adryan Alarcon Attending Clinician Doctor Unassigned, Name Attending Clinician Unavailable Sudhir MAHONEY Attending Clinician Juany Walls Admitting Clinician Unavailable Payers Payer Name Policy Type Policy Number Effective Date Expiration Date [facility] [id number] 2021 [facility] MEDICAID 00:00:00 [facility] [id number] 2015 00:00:00 Problems Condition Condition Condition Status Onset Resolution [...] disorder, 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 ICD10 Diagnosis Term [address] Usher Utility Pyelonephr Pyelonephr Disease Active U nivers itis itis 4-24 ity of 00:00: [place] 00 Medical Branch Pyelonephr Pyelonephr Disease Active U nivers itis itis 4-24 [place] of affecting [place]eter in first in first Branch trimester trimester Allergies, Adverse Reactions, Alerts Allergy Allergy Status Severity Reaction(s) Onset Inactive Treating Comm ents Source Name Type Date Date Clinician No Known DA Active U 2019-0 [facility] No Known DA Active U 2020-0 [facility] Allergie 01-17 [facility] 00 l [facility] NO KNOWN Drug Active Univers ALLERGIE Class ity of S [facility] Family History Family Member Diagnosis Comments Start Date Stop Date Source Natural brother Dementia [facility] Natural father Bipolar disorder Meth [facility] Social History Social Habit Start Date Stop Date Quantity Comments Source Exposure to Not sure University SARS-CoV-2 [place] [facility] (event) Branch Alcohol intake 2016-10-25 2016-10-25 .29 /d [facility] 00:00:00 00:00:00 Alcohol Comment 2016-10-25 2016-10-25 Pt states drinks Met [facility] 00:00:00 00:00:00 2 shots per month Sex Ass[birth year] Universit y of 00:00:00 00:00:00 [facility] Smoking Status Start Date Stop Date Source Unknown if ever smoked [facility] y [facility] Never smoker [facility] Medications Ordered Filled Start Stop Current Ordering Indication Dosage Frequency Signature Comments Components Source Medication Medication Date Date Medication? Clinician (SIG) Name Name ibuprofen 2020-05 Yes [id number] 600mg Take 1 Univers 600 mg 1-04 tablet by ity of tablet 00:00: mouth [place] 00 every 6 Medical (six) Branch hours as needed for Pain (scale 4-6). cephALEXin 2020-05- Yes [id number] 500mg Take 1 Univers (KEFLEX) 1-04 11-15 capsule by ity of 500 mg 00:00: 05:59 mouth 3 [place] capsule 00 :00 (three) Medical times Branch daily for 10 days. benzonatate Yes [id number] 100mg Take 1 Univers 100 mg 9-24 [id number] capsule by ity of capsule 00:00: mouth 3 [place] 00 (three) Medical times Branch daily as needed for Cough. albuterol Yes [id number] 2{puff} Inhale 2 Univers 90 9-24 [id number] Puffs ity of mcg/actuati 00:00: every 4 Jluis as on inhaler 00 (four) Medical hours as Branch needed for Wheezing or Shortness of Breath. benzonatate Yes [id number] 100mg Take 1 Univers 100 mg 9-24 [id number] capsule by ity of capsule 00:00: mouth 3 [place] 00 (three) Medical times Branch daily as needed for Cough. albuterol Yes [id number] 2{puff} Inhale 2 Univers 90 9-24 [id number] Puffs ity of mcg/actuati 00:00: every 4 [place]lu[place] as on inhaler 00 (four) Medical hours as Branch needed for Wheezing or Shortness of Breath. benzonatate Yes [id number] 100mg Take 1 Univers 100 mg 9-24 [id number] capsule by ity of capsule 00:00: mouth 3 [place] 00 (three) Medical times Branch daily as needed for Cough. albuterol Yes [id number] 2{puff} Inhale 2 Univers 90 9-24 [id number] Puffs ity of mcg/actuati 00:00: every 4 [place] as on inhaler 00 (four) Medical hours as Branch needed for Wheezing or Shortness of Breath. predniSONE 2020- No [id number] 40mg Take 2 Univers 20 mg 02-01 09-30 tablets by ity of tablet 00:00: 04:59 mouth [place] 00 :00 daily for Medical 5 days. Branch naproxen Yes [id number] 550mg Take 1 U nivers sodium 550 3-16 tablet by ity of mg tablet 00:00: mouth 2 (two) Medical times Branch daily with meals. benzonatate Yes [id number] 200mg Take 1 Univers 200 mg 3-16 capsule by ity of capsule 00:00: mouth 3 (three) Medical times Branch daily as needed for Cough. naproxen Yes [id number] 550mg Take 1 U nivers sodium 550 3-16 tablet by ity of mg tablet 00:00: mouth (two) Medical times Branch daily with meals. benzonatate Yes [id number] 200mg Take 1 Univers 200 mg 3-16 capsule by ity of capsule 00:00: mouth 3 (three) Medical times Branch daily as needed for Cough. naproxen Yes [id number] 550mg Take 1 U nivers sodium 550 3-16 tablet by ity of mg tablet 00:00: mouth [place] (two) Medical times Branch daily with meals. benzonatate Yes [id number] 200mg Take 1 Univers 200 mg 3-16 capsule by ity of capsule 00:00: mouth 3 [place] (three) Medical times Branch daily as needed for Cough. ibuprofen Yes 400mg Take 400 Met hodi (ADVIL,MOTR 6-[address] IN) 400 MG 21:16: mouth as Hos beth tablet 06 needed for l headaches. multivitami Yes 1{tbl} QD Take 1 Me thodi n with 6-[address] minerals 21:16: mouth Hospita tablet 06 daily. l Takes One-A-Day women's amoxicillin Yes 1{tbl} Take 1 Tab Univers -pot 4-27 by mouth 2 ity of clavulanate 00:00: (two) [place] (AUGMENTIN 00 times Medical XR) daily. Branch 1,000-62.5 mg 12 hr tablet acetaminoph Yes 1{tbl} Take 1 Tab Univers en-codeine 4-27 by mouth ity o f (TYLENOL 00:00: every 4 [place] #3) 300-30 00 (four) Medical mg tablet hours as Branch needed for Pain (scale 4-6). amoxicillin Yes 1{tbl} Take 1 Tab Univers -pot 4-27 by mouth 2 ity of clavulanate 00:00: (two) [place] (AUGMENTIN 00 times Medical XR) daily. Branch 1,000-62.5 mg 12 hr tablet acetaminoph Yes 1{tbl} Take 1 Tab Univers en-codeine 4-27 by mouth ity o f (TYLENOL 00:00: every 4 [place] #3) 300-30 00 (four) Medical mg tablet hours as Branch needed for Pain (scale 4-6). amoxicillin Yes 1{tbl} Take 1 Tab Univers -pot 4-27 by mouth 2 ity of clavulanate 00:00: (two) [place] (AUGMENTIN 00 times Medical XR) daily. Branch 1,000-62.5 mg 12 hr tablet acetaminoph Yes 1{tbl} Take 1 Tab Univers en-codeine 4-27 by mouth ity o f (TYLENOL 00:00: every 4 [place] #3) 300-30 00 (four) Medical mg tablet hours as Branch needed for Pain (scale 4-6). Vital Signs Vital Name Observation Time Observation Value Comments Source Systolic blood 2021-03-14 22:34:00 125 mm[Hg[facility] Diastolic blood 2021-03-14 22:34:00 73 mm[Hg] [facility] Heart rate 2021-03-14 22:34:00 85 /min [facility] Body temperature 2021-03-14 22:34:00 37.28 Edy[facility] Respiratory rate 2021-03-14 22:34:00 16 /min [facility] Body height 2021-03-14 22:34:00 152.4 cm Universi ty [facility] [place] [facility] Body weight 2021-03-14 22:34:00 72.576 kg Universi ty of [place] [facility] BMI 2021-03-14 22:34:00 31.25 kg/m2 Universi ty [facility] Oxygen saturation in 2021-03-14 22:34:00 97 /min University of Arterial blood by [place] Medi dieter Pulse oximetry Branch Heart rate 2021-02-01 15:32:00 57 /min Universi ty [facility] [place] [facility] Body temperature 2021-02-01 15:32:00 37.17 Edyta [facility] rate 2021-02-01 15:32:00 14 /min [facility] Body weight 2021-02-01 15:32:00 72.576 kg Universi ty [facility] BMI 2021-02-01 15:32:00 31.25 kg/m2 Universi ty [facility] [place] Oxygen saturation in 2021-02-01 15:32:00 98 /min University of Arterial blood by [place] [employer] dieter Pulse oximetry Branch Systolic blood 2021-02-01 15:32:00 137 mm[Hg] Univer sity of pressure [facility] Diastolic blood 2021-02-01 15:32:00 70 mm[Hg] Unive rsity of [facility] Procedures Procedure Date / Time Performed Performing Clinician Sour e CONSENT/REFUSAL FOR 2021-03-14 22:19:18 Doctor Unassigned, No Un i[facility]ity of [place] DIAGNOSIS AND Name Medical Branch TREATMENT XR CHEST 2 VW 2021-02-01 17:04:[address] [facility] NOTICE OF PRIVACY 2021-02-01 15:28:52 Doctor Unassigned, No Univ ersity of [place] PRACTICES Name Medical Branch CONSENT/REFUSAL FOR 2021-02-01 15:28:12 Doctor Unassigned, No Un [facility] [place] DIAGNOSIS AND Name Medical Branch TREATMENT [id number] 2020-01-18 00:00:00 [facility] [id number] 2020-01-18 00:00:00 [facility] Encounters Start End Encounter Admission Attending Care Care Encounter Source Date/Time Date/Time Type Type Clinicians Facility Department ID 2020-01-18 Inpatient BRANDI Walls [facility] [id number] [facility] 12:00:00 [facility] [place] 2020-01-16 Inpatient EL BRANDI Walls [id number] [facility] 11:00:00 Ney [id number] [facility] [place] 2021-03-14 2021-03-14 Emergency X HAMILTON, K [facility] ERT [id number] Univers 17:36:00 18:46:00 ity of [facility] 2021-03-14 2021-03-14 Emergency Shama Villasenor [facility] [id number] Univers 17:36:00 18:46:00 Adryan CHAN [id number] i ty of [place] 4.2.7.2.686 [facility] [id number] [address] 2021-03-14 2021-03-14 Orders Doctor YORDAN [id number] Univers 00:00:00 00:00:00 Only Unassigned, BATOOL [id number] ity of [place] [facility] 4.2.7.2.686 Jluis as [id number] [place] [address] Branch 2021-02-01 2021-02-01 Emergency Peguero, [facility] [id number] Univers 10:33:00 12:48:00 Jossy Julioton 350.1.13.10 i ty of [place] 4.2.7.2.[address] [facility] [id number] [address] 2021-02-01 2021-02-01 Emergency X [facility] ERT [id number] Univers 10:26:00 10:26:00 ity of [facility] 2020-07-31 2020-07-31 Letter Doctor YORDAN [id number] 00:00:00 00:00:00 (Out) Unassigned, BATO[place] [id number] [place] [facility] 4.2.7.2.686 [id number] [facility] 2020-07-31 2020-07-31 Letter Doctor YORDAN [id number] 00:00:00 00:00:00 (Out) Unassigned, BATO[place] [id number] [place] [facility] 4.2.7.2.686 [id number] Results Test Description Test Time Test Comments Results Result Comments Source FALLOPIAN 2020-01-19 TUBE,STERILIZATION 13:38:00 RUN DATE: 01/20/20 [facility] PAGE 1 RUN TIME: 1751 Specimen Inquiry RUN USER: INTERFACE PAT IENT: FRANCY SINGH LOC: KOREY U #: [id number] AGE/SX: 24/F ROOM: [facility] RE01/18/20REG DR: Ney Walls MD : 93 BED: A DIS: STATUS: ADM IN TLOC: SPEC #: [id number] RECD: 01/18/20-8 STATUS: BLANKA MCCARTHY #: [id number] ZAIN: 01/18/20- SUBM DR: Ney Walls MD ENTERED: 01/18/20-1528 SP TYPE: [facility] DR: ORDERED: LEVEL II SURGIC/2 CODES: A21609 - FALLOPIAN TUBE PROCEDURES: LEVEL II SURGIC (Incomplete) TISSUES: FALLOPIAN TUBE, NOS - BILATERAL FALLOPIAN TUBES CLINICAL HISTORY 24 year old, , repeat section (wpd) FINAL DIAGNOSIS Specimen #1 right fallopian tube, segmental resection: - no pathologic alterations - completely transected lumen demonstrated Specimen #2 left fallopian tube, segmental resection: - no pathologic alterations - completely transected lumen demonstrated CPT code(s): 31216 x2 cds/kr GROSS DESCRIPTION ANATOMIC SOURCE OF [...] pieces and submitted in toto in B1. hz/wpd 01/18/20 CONTINUED ON NEXT PAGE RUN DATE: 01/20/20 [facility] PAGE 2 RUN TIME: 1751 Specimen Inquiry RUN USER: INTERFACE GLENN Stoddard #: [id number] PATIENT: FRANCY SINGH #[id number] (Continued)-------- -------- Signed Saulo Huerta 01/19/20 1338 END OF REPORT HGB HCT 2020-01-19 08:17:00 Test Item Value Reference Range Interpretation Comme nts HEMOGLOBIN (test code = HGB) 8.3 g/dL 10.7-13.9 L Results verified by repeat analysis HEMATOCRIT (test code = HCT) 25.9 % 32.1-42.1 L Results verified by repeat analysis AG HEPATITIS B [id number] 15:20:00 Test Item Value Reference Range Interpretation Comments AG HEPATITIS B SURFACE (test code NONREACTIVE NONREACTIVE = HBSAG) : *IS CONSENT FORM SIGNED FOR HIV TESTING? YAZahraa [id number] 15:20:00 Test Item Value Reference Range Interpretation Comments AB TREPONEMA (test code = TREPAB) NONREACTIVE NONREACTIVE : *IS CONSENT FORM SIGNED FOR HIV TESTING? YAB HIV 1 15:20:00 Test Item Value Reference Range Interpretation Comments AB HIV 1 2 (test NONREACTIVE NONREACTIVE Done by Juany Orozco code = [id number]) 4th Gen HIV Ag/Ab Combo Screen : *IS CONSENT FORM SIGNED FOR HIV TESTING? YAG HEPATITIS B [id number] 14:49:00 Test Item Value Reference Range Interpretation Comments AG HEPATITIS B SURFACE (test code NONREACTIVE NONREACTIVE = HBSAG) : *IS CONSENT FORM SIGNED FOR HIV TESTING? YAB [id number] 14:49:00 Test Item Value Reference Range Interpretation Comments AB TREPONEMA (test code = TREPAB) NONREACTIVE NONREACTIVE : *IS CONSENT FORM SIGNED FOR HIV TESTING? YAB HIV 1 14:49:00 Test Item Value Reference Range Interpretation Comments AB HIV 1 2 (test code = [id number]) NONREACTIVE : *IS CONSENT FORM SIGNED FOR [...] and/o r diagnosis of CO VID-19 under Kxeyszt17 4(b)(1) of the Act, 21 U.S .C. 360bbb-3(b)(1), unless theauthorizatio n is terminated or r evoked sooner. CBC W/AUTO [id number] 14:01:00 Test Item Value Reference Range Interpretation [...]
[2021-06-06 12:36] LABS: SARS-COV-2 RT PCR NEGATIVE (NEGATIVE)
--- NOTE | 2021-06-06 13:10 | ER ---
Nurse's Notes [facility] Name: Linda Oneal Age: 26 yrs Sex: Female : 1995 Arrival Date: 06/06/2021 Time: 10:39 Bed 11 Private MD: Diagnosis: Viral infection, unspecified;Acute upper respiratory infection, unspecified Presentation: 06/06 10:45 Chief complaint: Patient states: Amb to triage w c/o feeling sick since yesterday. ic1 States she started running a fever and experiencing congestion and fever. Also c/o pastor ear pain. Coronavirus screen: Vaccine status: Patient reports being unvaccinated. Ebola Screen: No symptoms or risks identified at this time. Initial Sepsis Screen: Does the patient meet any 2 criteria? No. Patient's initial sepsis screen is negative. Does the patient have a suspected source of infection? No. Patient's initial sepsis screen is negative. Risk Assessment: Do you want to hurt yourself or someone else? Patient reports no desire to harm self or others. Onset of symptoms was June 05, 2021. 10:45 Method Of Arrival: Ambulatory ic1 10:45 Acuity: FROYLAN 4 ic1 Triage Assessment: 10:47 General: Appears in no apparent distress. Behavior is calm, cooperative. Pain: ic1 Complains of pain in Pt c/o generalized body aches. EENT: Reports nasal congestion pain. 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 - Social history:: Smoking status: Patient denies any tobacco usage or history of. Screenin:15 Abuse screen: Denies threats or abuse. Denies injuries from another. Nutritional ic1 screening: No deficits noted. Tuberculosis screening: No symptoms or risk factors identified. Fall Risk None identified. Vital Signs: 10:44 BP 111 / 68; Pulse 77; Resp 18; Temp 98.8(O); Pulse Ox 97% ; ic1 13:23 BP 125 / 71; Pulse 70; Resp 18; Pulse Ox 99% on R/A; ic1 ED Course: 10:39 Patient arrived in ED. as 10:47 Triage completed. ic1 10:47 Arm band placed on left wrist. ic1 11:03 Christiano Stewart MD is Attending Physician. kdr 13:15 Patient has correct armband on for positive identification. ic1 Administered Medications: No medications were administered Outcome: 13:09 Discharge ordered by . kdr 13:15 Discharged to home ambulatory. ic1 13:15 Condition: stable 13:15 Discharge instructions given to patient, Instructed on discharge instructions, follow up and referral plans. Demonstrated understanding of instructions, follow-up care. 13:23 Prescriptions given X ic1 13:23 Prescriptions given X 1. 13:32 Patient left the ED. ic1 Signatures: Christiano Stewart MD MD kdr Karrie Swanson Iesha, RN RN ic1
--- NOTE | 2021-06-06 13:10 | EDPHYS ---
Physician Documentation [facility] Name: Linda Oneal Age: 26 yrs Sex: Female : 1995 Arrival Date: 06/06/2021 Time: 10:39 Bed 11 Private MD: ED Physician Christiano Stewart HPI: 06/06 15:08 This 26 yrs old Female presents to ER via Ambulatory with complaints of Sore kdr Throat, Fever, Ear Pain. 15:08 The patient complains of bilateral ear pain and subjective fever which started kdr yesterday. She has had also a sore throat.. 15:09 Onset: The symptoms/episode began/occurred yesterday. Severity of symptoms: At their kdr worst the symptoms were mild moderate just prior to arrival, in the emergency department the symptoms are unchanged. The patient has not experienced similar symptoms in the past. The patient has not recently seen a physician. 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 - Social history:: Smoking status: Patient denies any tobacco usage or history of. ROS: 15:09 Constitutional: Negative for weight loss, Eyes: Negative for injury, pain, redness, kdr and discharge, Neck: Negative for injury, pain, and swelling, Cardiovascular: Negative for chest pain, palpitations, and edema, Abdomen/GI: Negative for abdominal pain, nausea, vomiting, diarrhea, and constipation, Back: Negative for injury and pain, : Negative for injury, bleeding, discharge, and swelling, MS/Extremity: Negative for injury and deformity, Skin: Negative for injury, rash, and discoloration, Neuro: Negative for headache, weakness, numbness, tingling, and seizure activity. Psych: Negative for depression, anxiety, suicide ideation, homicidal ideation, and hallucinations, Allergy/Immunology: Negative for hives, rash, and allergies, Endocrine: Negative for neck swelling, polydipsia, polyuria, polyphagia, and marked weight changes, Hematologic/Lymphatic: Negative for swollen nodes, abnormal bleeding, and unusual bruising. 15:09 Constitutional: Positive for body aches, chills, fever, malaise. 15:09 Respiratory: Positive for cough, Negative for dyspnea on exertion, hemoptysis, orthopnea, pleurisy, sputum production, wheezing, acute changes. Exam: 15:09 Constitutional: This is a well developed, well nourished patient who is awake, alert, kdr and in no acute distress. Head/Face: Normocephalic, atraumatic. Eyes: Pupils equal round and reactive to light, extra-ocular motions intact. Lids and lashes normal. Conjunctiva and sclera are non-icteric and not injected. Cornea within normal limits. Periorbital areas with no swelling, redness, or edema. Neck: Trachea midline, no thyromegaly or masses palpated, and no cervical lymphadenopathy. Supple, full range of motion without nuchal rigidity, or vertebral point tenderness. No Meningismus. Chest/axilla: Normal chest wall appearance and motion. Nontender with no deformity. No lesions are appreciated. Cardiovascular: Regular rate and rhythm with a normal S1 and S2. No gallops, murmurs, or rubs. Normal PMI, no JVD. No pulse deficits. Abdomen/GI: Soft, non-tender, with normal bowel sounds. No distension or tympany. No guarding or rebound. No evidence of tenderness throughout. Back: No spinal tenderness. No costovertebral tenderness. Full range of motion. Skin: Warm, dry with normal turgor. Normal color with no rashes, no lesions, and no evidence of cellulitis. MS/ Extremity: Pulses equal, no cyanosis. Neurovascular intact. Full, normal range of motion. Neuro: Awake and alert, GCS 15, oriented to person, place, time, and situation. Cranial nerves II-XII grossly intact. Motor strength 5/5 in all extremities. Sensory grossly intact. Cerebellar exam normal. Normal gait. Psych: Awake, alert, with orientation to person, place and time. Behavior, mood, and affect are within normal limits. 15:09 ENT: Posterior pharynx: Tonsils: bilaterally enlarged, with erythema, no exudate, no ulcerations. 15:09 Respiratory: the patient does not display signs of respiratory distress, Respirations: normal, Breath sounds: are clear throughout. Vital Signs: 10:44 BP 111 / 68; Pulse 77; Resp 18; Temp 98.8(O); Pulse Ox 97% ; ic1 13:23 BP 125 / 71; Pulse 70; Resp 18; Pulse Ox 99% on R/A; ic1 MDM: 13:09 Patient medically screened. kdr 15:11 Data reviewed: vital signs, nurses notes, lab test result(s). Counseling: I had a kdr detailed discussion with the patient and/or guardian regarding: the historical points, exam findings, and any diagnostic results supporting the discharge/admit diagnosis, lab results, the need for outpatient follow up. 06/06 11:04 Order name: COVID-19/FLU A+B (Document "Date of Onset" if Symptomatic); Complete Time: kdr 12:56 06/06 11:04 Order name: Strep; Complete Time: 12:15 kdr 06/06 12:02 Order name: Throat Culture EDMS Administered Medications: No medications were administered Disposition Summary: 06/06/21 13:09 Discharge Ordered Location: Home kdr Problem: new kdr Symptoms: have improved kdr Condition: Stable kdr Diagnosis - Viral infection, unspecified kdr - Acute upper respiratory infection, unspecified kdr Followup: kdr - With: Private Physician - When: 2 - 3 days - Reason: If symptoms return, Further diagnostic work-up, Recheck today's complaints, Continuance of care, Re-evaluation by your physician Discharge Instructions: - Discharge Summary Sheet kdr - Upper Respiratory Infection, Adult kdr - Viral Respiratory Infection, [id number] kdr - COVID-19 kdr - COVID-19: What Your Test Results Mean - [facility] kdr - COVID-19 Frequently Asked Questions kdr - COVID-19: Quarantine vs. 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
[2021-06-06 13:49] VITALS: TEMP 98.8
[2021-06-06 13:54] VITALS: BP 125/71; O2SAT 99
== END 2021-06-06 13:32 | disposition home or self-care (01) ==
LOC: ER 10:36
DX: B34.9 Viral infection, unspecified (principal); J06.9 Acute upper respiratory infection, unspecified; Z20.822 Contact with and (suspected) exposure to COVID-19
CPT/HCPCS: 87070; 87081; 0240U; 99282

== ENCOUNTER 2021-11-05 00:54 | Emergency (ER) | payer OTHER ==
--- OUTSIDE RECORDS SUMMARY | 2021-11-05 00:57 | XMS REPORT | Continuity of Care Document ---
:1995 Author Organization [facility] t Address [address] [place] [address] Care Team Providers Name Role Phone Asked, Pcp Primary Care Physician Unavailable Juany Walls Attending Clinician Unavailable ADRYAN VILLASENOR Attending Clinician Unavailable Adryan Alarcon Attending Clinician Doctor Unassigned, Name Attending Clinician Unavailable Sudhir MAHONEY Attending Clinician Juany Walls Admitting Clinician Unavailable Payers Payer Name Policy Type Policy Number Effective Date Expiration Date [facility] [id number] 2021 CHOICE MEDICAID 00:00:00 R [id number] 2015 00:00:00 Problems Condition Condition Condition Status Onset Resolution Last Treating Co mments Source Name Details Category Date Date Treatment Clinician Date PID (acute PID (acute Disease Active M ethodi pelvic pelvic 6-18 st inflammato inflammato 00:00: Ho spita ry ry 00 l disease) disease) Emotionall Emotionall Disease Active M ethodi y unstable y unstable 6-18 st borderline borderline 00:00: Ho spita personalit personalit 00 l y disorder y disorder in adult in adult 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 ICD10 Diagnosis Term Cooker Meal Utility Pyelonephr Pyelonephr Disease Active U nivers itis itis 4-24 ity of 00:00: [place] 00 Medical Branch Pyelonephr Pyelonephr Disease Active U nivers itis itis 4-24 [place] of [place] first in first Branch trimester trimester Allergies, Adverse Reactions, Alerts Allergy Allergy Status Severity Reaction(s) Onset Inactive Treating Comm ents Source Name Type Date Date Clinician No Known DA Active U 0 [facility]17 [facility] [place] No Known DA Active U 0 [facility] Allergie 01-17 [facility] [place] NO KNOWN Drug Active Univers ALLERGIE Class ity of S [facility] Family History Family Member Diagnosis Comments Start Date Stop Date Source Natural brother Dementia [facility] Natural father Bipolar disorder [facility] Social History Social Habit Start Date Stop Date Quantity Comments Source Exposure to Not sure University of SARS-CoV-2 [place] [facility] (event) Branch Alcohol intake 2016-10-25 2016-10-25 .29 /d [facility] 00:00:00 00:00:00 Alcohol Comment 2016-10-25 2016-10-25 Pt states drinks Met [facility] 00:00:00 00:00:00 2 shots per month Sex Ass[birth year] Universit y of 00:00:00 00:00:00 [facility] Smoking Status Start Date Stop Date Source Unknown if ever smoked [facility] y [facility] Never smoker [facility] Medications Ordered Filled Start Stop Current Ordering Indication Dosage Frequency Signature Comments Components Source Medication Medication Date Date Medication? Clinician (SIG) Name Name ibuprofen 2020-05 Yes [id number] 600mg Take 1 Univers 600 mg 1-04 tablet by ity of tablet 00:00: mouth [place] 00 every 6 Medical (six) Branch hours as needed for Pain (scale 4-6). cephALEXin 2020-05- No [id number] 500mg Take 1 Univers (KEFLEX) 1-04 11-15 capsule by ity of 500 mg 00:00: 05:59 mouth 3 [place] capsule 00 :00 (three) Medical times Branch daily for 10 days. benzonatate Yes [id number] 100mg Take 1 Univers 100 mg 9-24 [id number] capsule by ity of capsule 00:00: mouth 3 [place] 00 (three) Medical times Branch daily as needed for Cough. albuterol Yes [id number] 2{puff} Inhale 2 Univers 90 9-24 [id number] Puffs ity of mcg/actuati 00:00: every 4 Jluis as on inhaler 00 (four) Medical hours as Branch needed for Wheezing or Shortness of Breath. benzonatate Yes [id number] 100mg Take 1 Univers 100 mg 9-24 [id number] capsule by ity of capsule 00:00: mouth 3 [place] 00 (three) Medical times Branch daily as needed for Cough. albuterol Yes [id number] 2{puff} Inhale 2 Univers 90 9-24 [id number] Puffs ity of mcg/actuati 00:00: every 4 Jlusi as on inhaler 00 (four) Medical hours as Branch needed for Wheezing or Shortness of Breath. benzonatate Yes [id number] 100mg Take 1 Univers 100 mg 02-01 [id number] capsule by ity of capsule 00:00: mouth (three) Medical times Branch daily as needed for Cough. albuterol Yes [id number] 2{puff} Inhale 2 Univers 90 - [id number] Puffs ity of mcg/actuati 00:00: every 4 Jlu[place] as on inhaler 00 (four) Medical hours as Branch needed for Wheezing or Shortness of Breath. predniSONE 2020- No [id number] 40mg Take 2 Univers 20 mg -24 09-30 tablets by ity of tablet 00:00: 04:59 mouth [place] 00 :00 daily for Medical 5 days. Branch naproxen Yes [id number] 550mg Take 1 U nivers sodium 550 3-16 tablet by ity of mg tablet 00:00: mouth (two) Medical times Branch daily with meals. benzonatate Yes [id number] 200mg Take 1 Univers 200 mg 3-16 capsule by ity of capsule 00:00: mouth (three) Medical times Branch daily as needed for Cough. naproxen Yes [id number] 550mg Take 1 U nivers sodium 550 3-16 tablet by ity of mg tablet 00:00: mouth (two) Medical times Branch daily with meals. benzonatate Yes [id number] 200mg Take 1 Univers 200 mg 3-16 capsule by ity of capsule 00:00: mouth (three) Medical times Branch daily as needed for Cough. naproxen Yes [id number] 550mg Take 1 U nivers sodium 550 3-16 tablet by ity of mg tablet 00:00: mouth (two) Medical times Branch daily with meals. benzonatate Yes [id number] 200mg Take 1 Univers 200 mg 3-16 capsule by ity of capsule 00:00: mouth (three) Medical times Branch daily as needed [...] mouth 2 ity of clavulanate 00:00: (two) [place] (AUGMENTIN 00 times Medical XR) daily. Branch 1,000-62.5 mg 12 hr tablet acetaminoph Yes 1{tbl} Take 1 Tab Univers en-codeine 4-27 by mouth ity o f (TYLENOL 00:00: every 4 [place] #3) 300-30 00 (four) Medical mg tablet hours as Branch needed for Pain (scale 4-6). amoxicillin Yes 1{tbl} Take 1 Tab Univers -pot 4-27 by mouth 2 ity of clavulanate 00:00: (two) [place] (AUGMENTIN 00 times Medical XR) daily. Branch 1,000-62.5 mg 12 hr tablet acetaminoph Yes 1{tbl} Take 1 Tab Univers en-codeine 4-27 by mouth ity o f (TYLENOL 00:00: every 4 [place] #3) 300-30 00 (four) Medical mg tablet hours as Branch needed for Pain (scale 4-6). amoxicillin Yes 1{tbl} Take 1 Tab Univers -pot 4-27 by mouth 2 ity of clavulanate 00:00: (two) [place] (AUGMENTIN 00 times Medical XR) daily. Branch 1,000-62.5 mg 12 hr tablet acetaminoph Yes 1{tbl} Take 1 Tab Univers en-codeine 4-27 by mouth ity o f (TYLENOL 00:00: every 4 [place] #3) 300-30 00 (four) Medical mg tablet hours as Branch needed for Pain (scale 4-6). Vital Signs Vital Name Observation Time Observation Value Comments Source Systolic blood 2021-03-14 22:34:00 125 mm[Hg] Univer sity [facility] Diastolic blood 2021-03-14 22:34:00 73 mm[Hg] Unive [facility] Heart rate 2021-03-14 22:34:00 85 /min Universi [facility] Body temperature 2021-03-14 22:34:00 37.28 [facility] ersity of [place] [facility] Respiratory rate 2021-03-14 22:34:00 16 /min Univ ersity of [place] [facility] Body height 2021-03-14 22:34:00 152.4 cm Universi ty of [place] [facility] Body weight 2021-03-14 22:34:00 72.576 kg Universi ty of [place] [facility] BMI 2021-03-14 22:34:00 31.25 kg/m2 Universi ty of [place] [facility] Oxygen saturation in 2021-03-14 22:34:00 97 /min University of Arterial blood by [facility] Pulse oximetry Branch Heart rate 2021-02-01 15:32:00 57 /min Universi ty of [place] [facility] Body temperature 2021-02-01 15:32:00 37.17 [facility] ersity of [place] [facility] Respiratory rate 2021-02-01 15:32:00 14 /min [facility] ersity of [place] [facility] Body weight 2021-02-01 15:32:00 72.576 kg Universi ty of [place] [facility] BMI 2021-02-01 15:32:00 31.25 kg/m2 Universi ty of [place] [facility] Oxygen saturation in 2021-02-01 15:32:00 98 /min University of Arterial blood by [facility] Pulse oximetry Branch Systolic blood 2021-02-01 15:32:00 137 mm[Hg] Univer sity of pressure [place] [facility] Diastolic blood 2021-02-01 15:32:00 70 mm[Hg] Unive rsity of pressure [place] [facility] [place] Procedures Procedure Date / Time Performed Performing Clinician [facility] e CONSENT/REFUSAL FOR 2021-03-14 22:19:18 Doctor Unassigned, No Un iversity of [place] DIAGNOSIS AND Name Medical Branch TREATMENT XR CHEST 2 VW 2021-02-01 17:04:00 Jossy Peguero [facility] NOTICE OF PRIVACY 2021-02-01 15:28:52 Doctor Unassigned, No Univ ersity of [place] PRACTICES Name Medical Branch CONSENT/REFUSAL FOR 2021-02-01 15:28:12 Doctor Unassigned, No Un i[facility] [place] DIAGNOSIS AND Name Medical Branch TREATMENT [id number] 2020-01-18 00:00:00 [facility] [id number] 2020-01-18 00:00:00 SHEGR [facility] Encounters Start End Encounter Admission Attending Care Care Encounter Source Date/Time Date/Time Type Type Clinicians Facility Department ID 2020-01-18 Inpatient BRANDI Walls [facility] [id number] [facility] 12:00:00 [facility] [place] 2020-01-16 Inpatient BRANDI Herndon [id number] [facility] 11:00:00 [facility] [place] 2021-03-14 2021-03-14 Emergency X HAMILTON, K [facility] ERT [id number] Univers 17:36:00 18:46:00 ity of [facility] 2021-03-14 2021-03-14 Emergency Shama Villasenor [facility] [id number] Univers 17:36:00 18:46:00 Adryan GILES [id number] i ty of [place] 4.2.7.2.686 [facility] [phone] [facility] 084 Branch 2021-03-14 2021-03-14 Orders Doctor YORDAN [id number] Univers 00:00:00 00:00:00 Only UnassignedBATOOL 350.1.13.10 ity of [place] [facility] 4.2.7.2.686 Jluis [id number] [facility] 009 Branch 2021-02-01 2021-02-01 Emergency Peguero, [facility] [id number] Univers 10:33:00 12:48:00 Jossy Giles 350.1.13.10 i ty of [place] 4.2.7.2.686 [facility] [id number] [facility] 084 Branch 2021-02-01 2021-02-01 Emergency X [facility] ERT [id number] Univers 10:26:00 10:26:00 ity of [facility] 2020-07-31 2020-07-31 Letter Doctor YORDAN [id number] 00:00:00 00:00:00 (Out) UnassignedBATOOL 350.1.13.10 [place] [facility] 4.2.7.2.686 [id number] 044 2020-07-31 2020-07-31 Letter Doctor YORDAN [id number] 00:00:00 00:00:00 (Out) Unassigned, BATOOL 350.1.13.10 [place] [facility] 4.2.7.2.686 [id number] [id number] Results Test Description Test Time Test Comments Results Result Comments Source FALLOPIAN 2020-01-19 TUBE,STERILIZATION 13:38:00 RUN DATE: 01/20/20 [facility] PAGE 1 RUN TIME: 1751 Specimen Inquiry RUN USER: INTERFACE PAT IENT: FRANCY SINGH LOC: KOREY U #: [id number] AGE/SX: / ROOM: [facility] RE01/18/20REG DR: Ney Walls MD : 89 BED: A DIS: STATUS: ADM IN TLOC: SPEC #: [id number] RECD: 01/18/20-1527 STATUS: BLANKA MCCARTHY #: [id number] ZAIN: 01/18/20- SUBM DR: Ney Walls MD ENTERED: 01/18/20 SP TYPE: KAVITA TEA DR: ORDERED: LEVEL II SURGIC/2 CODES: [id number] - FALLOPIAN TUBE PROCEDURES: LEVEL II SURGIC (Incomplete) TISSUES: FALLOPIAN TUBE, NOS - BILATERAL FALLOPIAN TUBES CLINICAL HISTORY 24 year old, , repeat section (wpd) FINAL DIAGNOSIS Specimen #1 right fallopian tube, segmental resection: - no pathologic alterations - completely transected lumen demonstrated Specimen #2 left fallopian tube, segmental resection: - no pathologic alterations - completely transected lumen demonstrated CPT code(s): 70120 x2 cds/kr GROSS DESCRIPTION ANATOMIC SOURCE OF [...] [facility] PAGE 2 RUN TIME: 878 Specimen Inquiry RUN USER: INTERFACE GLENN Stoddard #: [id number] PATIENT: FRANCY SINGH #[id number] (Continued)-------- -------- Signed Saulo Huerta 01/19/20 1338 END OF REPORT HGB HCT 2020-01-19 08:17:00 Test Item Value Reference Range Interpretation Comme nts HEMOGLOBIN (test code = HGB) 8.3 g/dL 10.7-13.9 L Results verified by repeat analysis HEMATOCRIT (test code = HCT) 25.9 % 32.1-42.1 L Results verified by repeat analysis AG HEPATITIS B [id number] 15:20:00 Test Item Value Reference Range Interpretation Comments AG HEPATITIS B SURFACE (test code NONREACTIVE NONREACTIVE = HBSAG) : *IS CONSENT FORM SIGNED FOR HIV TESTING? YAB [id number] 15:20:00 Test Item Value Reference Range Interpretation Comments AB TREPONEMA (test code = TREPAB) NONREACTIVE NONREACTIVE : *IS CONSENT FORM SIGNED FOR HIV TESTING? YAB HIV 1 15:20:00 Test Item Value Reference Range Interpretation Comments AB HIV 1 2 (test NONREACTIVE NONREACTIVE Done by Juany Orozco code = TII09KP) 4th Gen HIV Ag/Ab Combo Screen : *IS CONSENT FORM SIGNED FOR HIV TESTING? YAG HEPATITIS B [id number] 14:49:00 Test Item Value Reference Range Interpretation Comments AG HEPATITIS B SURFACE (test code NONREACTIVE NONREACTIVE = HBSAG) : *IS CONSENT FORM SIGNED FOR HIV TESTING? YAB [id number] 14:49:00 Test Item Value Reference Range Interpretation Comments AB TREPONEMA (test code = TREPAB) NONREACTIVE NONREACTIVE : *IS CONSENT FORM SIGNED FOR HIV TESTING? YAB HIV 1 14:49:00 Test Item Value Reference Range Interpretation Comments AB HIV 1 2 (test code = UHH19LA) NONREACTIVE : *IS CONSENT FORM SIGNED FOR [...] and/o r diagnosis of CO VID-19 under Ytttcds19 4(b)(1) of the Act, 21 U.S .C. 360bbb-3(b)(1), unless theauthorizatio n is terminated or r evoked sooner. CBC W/AUTO [id number] 14:01:00 Test Item Value Reference Range Interpretation [...]
--- NOTE | 2021-11-05 01:07 | EDPHYS ---
Physician Documentation [facility] Name: Linda Oneal Age: 26 yrs Sex: Female : 1995 Arrival Date: 11/05/2021 Time: 00:59 Bed Waiting Private MD: ED Physician Christiano Stewart HPI: 11/05 01:04 This 26 yrs old Female presents to ER via Unassigned with complaints of Ear kb Pain. 01:04 The patient presents with a fullness, pain, moderate, tenderness. The complaints affect kb the left ear. Onset: The symptoms/episode began/occurred 5 day(s) ago. Modifying factors: The symptoms are alleviated by nothing, the symptoms are aggravated by nothing. Associated signs and symptoms: The patient has no apparent associated signs or symptoms. Severity of symptoms: At their worst the symptoms were moderate in the emergency department the symptoms are unchanged. The patient has not experienced similar symptoms in the past. The patient has not recently seen a physician. 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 - Social history:: Smoking status: Patient reports the use of cigarette tobacco products, denies chronic smoking, but will smoke occasionally. ROS: 01:04 Constitutional: Negative for fever, chills, and weight loss. kb 01:04 ENT: Positive for ear pain. 01:04 All other systems are negative. Exam: 01:04 Constitutional: This is a well developed, well nourished patient who is awake, alert, kb and in no acute distress. Head/Face: Normocephalic, atraumatic. Respiratory: Respirations even and unlabored. No increased work of breathing. Talking in full sentences Skin: Warm, dry with normal turgor. Normal color. MS/ Extremity: Pulses equal, no cyanosis. Neurovascular intact. Full, normal range of motion. Neuro: Awake and alert, GCS 15, oriented to person, place, time, and situation. Moves all extremities. Normal gait. Psych: Awake, alert, with orientation to person, place and time. Behavior, mood, and affect are within normal limits. 01:04 ENT: External ear(s): pain with movement, that is moderate, of the pinna of left ear, left ear lobe, left ear canal and left preauricular area, Ear canal(s): swelling, that is moderate, of the left canal, TM's: bulging, on the left, erythema, that is moderate, on the left. Vital Signs: 01:02 BP 119 / 63; Pulse 72; Resp 18; Temp 98.4; Pulse Ox 100% ; Weight 71.67 kg; Height 5 kd3 ft. (152.40 cm); Pain 6/10; 01:02 Body Mass Index 30.86 (71.67 kg, 152.40 cm) kd3 MDM: 01:00 Patient medically screened. kb 01:05 Data reviewed: vital signs, nurses notes. Data interpreted: Pulse oximetry: on room air kb is 100 %. Interpretation: normal. Counseling: I had a detailed discussion with the patient and/or guardian regarding: the historical points, exam findings, and any diagnostic results supporting the discharge/admit diagnosis, the need for outpatient follow up, a family practitioner, to return to the emergency department if symptoms worsen or persist or if there are any questions or concerns that arise at home. Administered Medications: No medications were administered Disposition: 01:14 Co-signature as Attending Physician, Christiano Stewart MD I agree with the assessment and kdr plan of care. Disposition Summary: 11/05/21 01:06 Discharge Ordered Location: Home kb Condition: Stable kb Diagnosis - Otitis media, unspecified, left ear kb - Other otitis externa, left ear kb Followup: kb - With: Emergency Department - When: As needed - Reason: Worsening of condition Followup: kb - With: Private Physician - When: 2 - 3 days - Reason: Recheck today's complaints, Continuance of care, Re-evaluation by your physician Discharge Instructions: - Discharge Summary Sheet kb - Otitis Externa, [id number]-[id number] kb - Otitis Media, Adult, Dlhl-yj-Vswn kb - Ear Drops, Adult, Ozvy-ze-Nwsi kb Forms: - Medication Reconciliation Form kb - Thank You Letter kb - Antibiotic Education kb - Prescription Opioid Use kb Prescriptions: - Amoxicillin 875 mg Oral Tablet - take 1 tablet by ORAL route every 12 hours for 10 days; 20 tablet; Refills: 0, kb Product Selection Permitted - Ciprodex 0.3-0.1 % Otic Drops, Suspension - instill 4 drops by OTIC route every 12 hours for 7 days , for ears ONLY; 1 kb Container; Refills: 0, Product Selection Permitted Signatures: Charla Schultz, Christiano Muniz MD MD kdr Crystal Gómez, RN RN kd3
--- NOTE | 2021-11-05 01:07 | ER ---
Nurse's Notes [facility] Name: Linda Oneal Age: 26 yrs Sex: Female : 1995 Arrival Date: 11/05/2021 Time: 00:59 Bed Waiting Private MD: Diagnosis: Otitis media, unspecified, left ear;Other otitis externa, left ear Presentation: 11/05 01:02 Chief complaint: Patient states: my left ear has been hurting for the past 5 days. its kd3 been hurting on and off longer, more like a few weeks but it went away and came back. Coronavirus screen: Vaccine status:. Coronavirus screen: Vaccine status: Patient reports being unvaccinated. Ebola Screen: No symptoms or risks identified at this time. Initial Sepsis Screen: Does the patient meet any 2 criteria? No. Patient's initial sepsis screen is negative. Does the patient have a suspected source of infection? No. Patient's initial sepsis screen is negative. Risk Assessment: Do you want to hurt yourself or someone else? Patient reports no desire to harm self or others. Onset of symptoms was November 05, 2021. 01:02 Method Of Arrival: Ambulatory kd3 01:02 Acuity: FROYLAN 4 kd3 Triage Assessment: 01:05 General: Appears in no apparent distress. Behavior is calm, cooperative. Pain: kd3 Complains of pain in left preauricular area and left ear canal. EENT: Tympanic membrane. 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 - Social history:: Smoking status: Patient reports the use of cigarette tobacco products, denies chronic smoking, but will smoke occasionally. Screenin:06 Abuse screen: Denies threats or abuse. Denies injuries from another. Nutritional kd3 screening: No deficits noted. Tuberculosis screening: No symptoms or risk factors identified. Fall Risk None identified. Vital Signs: 01:02 BP 119 / 63; Pulse 72; Resp 18; Temp 98.4; Pulse Ox 100% ; Weight 71.67 kg; Height 5 kd3 ft. (152.40 cm); Pain 6/10; 01:02 Body Mass Index 30.86 (71.67 kg, 152.40 cm) kd3 ED Course: 00:59 Patient arrived in ED. ja2 01:00 Charla Schultz FNP-C is [facility]. kb 01:00 Christiano Stewart MD is Attending Physician. kb 01:02 Crystal Gómez, RN is Primary Nurse. kd3 01:05 Triage completed. kd3 01:05 Arm band placed on right wrist. kd3 01:06 Patient has correct armband on for positive identification. kd3 01:06 No provider procedures requiring assistance completed. Patient did not have IV access kd3 during this emergency room visit. Administered Medications: No medications were administered Medication: 01:07 VIS not applicable for this client. kd3 Outcome: 01:06 Discharge ordered by . kb 01:07 Discharged to home ambulatory. kd3 01:07 Condition: stable 01:09 Discharge instructions given to patient, Instructed on discharge instructions, follow kd3 up and referral plans. medication usage, Demonstrated understanding of instructions, follow-up care, medications, Prescriptions given X 2. 01:10 Patient left the ED. kd3 Signatures: Charla Schultz FNP-C PRODUCT REPRESENTATIVE-Linda Rizvi ja2 Crystal Gómez, RN RN kd3
[2021-11-05 01:17] VITALS: BP 119/63; TEMP 98.4; O2SAT 100
== END 2021-11-05 01:10 | disposition home or self-care (01) ==
LOC: ER 00:54
DX: H66.92 Otitis media, unspecified, left ear (principal); H60.8X2 Other otitis externa, left ear; F17.210 Nicotine dependence, cigarettes, uncomplicated

== ENCOUNTER 2022-10-18 17:30 | Emergency (ER) | payer OTHER ==
--- OUTSIDE RECORDS SUMMARY | 2022-10-18 17:34 | XMS REPORT | Continuity of Care Document ---
:1995 Author Organization [facility] t Address [address] [facility] [address] [place] [address] Care Team Providers Name Role Phone Asked, No Pcp Primary Care Physician Unavailable Ney Walls Attending Clinician Unavailable JUNAID BECERRIL Attending Clinician Unavailable JACOB BARBER Attending Clinician Unavailable PATRICK SORIANO Attending Clinician Unavailable Shama VILLASENOR Attending Clinician Unavailable Shama Alarcon Attending Clinician Doctor Unassigned, [place] Attending Clinician Unavailable Jossy Henderson Attending Clinician RAMIN HINOJOSA Attending Clinician Unavailable CHRIS YARBROUGH Attending Clinician Unavailable Ney Walls Admitting Clinician Unavailable Payers Payer Name Policy Type Policy Number Effective Date Expiration Date [facility] [id number] 2021 [facility] MEDICAID 00:00:00 [facility] [id number] 2015 00:00:00 Problems Condition Condition Condition Status Onset Resolution Last Treating Co mments Source Name Details Category Date Date Treatment Clinician Date Emotionall Emotionall Disease Recurre Methodi y unstable y unstable nce 6-18 st borderline borderline 00:00: Ho spita [...] left 4-27 ity of arm arm 00:00: [place] [facility] High-risk High-risk Disease Active Overview: Univers 4-24 Formattin i ty of 00:00: g of this [place] 00 note Medical might be Branch different from the original. 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 Utility Pyelonephr Pyelonephr Disease Active U nivers itis itis 4-24 ity of 00:00: [place] [facility] Pyelonephr Pyelonephr Disease Active U nivers itis itis 4-24 [place]y of [place] first in first Branch trimester trimester Allergies, Adverse Reactions, Alerts Allergy Allergy Status Severity Reaction(s) Onset Inactive Treating Comm ents Source Name Type Date Date Clinician No Known DA Active U 2020-0 [facility] [place] No Known DA Active U 2020-0 [facility] Allergie 01-17 [facility] 00:00: Hospita 00 l [facility] NO KNOWN Drug Active Univers ALLERGIE Class ity of S [facility] Family History Family Member Diagnosis Comments Start Date Stop Date Source Natural brother Dementia [facility] Natural father Bipolar [facility] Social History Social Habit Start Date Stop Date Quantity Comments Source Exposure to Not sure [facility] SARS-CoV-2 (event) [facility] Gender identity [facility] Sexual orientation Method t Hospital Alcohol intake 2016-10-25 2016-10-25 Current drinker [facility] dist 00:00:00 00:00:00 of [facility] (finding) History of Social 2016-10-25 2016-10-[address] function 00:00:00 00:00:00 Hospital Alcohol Comment 2016-10-25 2016-10-25 Pt states [facility] 00:[facility]:00 drinks 2 shots Hospital per month Sex Assigned At [birth year] [facility] 00:[facility] Smoking Status Start Date Stop Date Source Unknown [facility] Never smoked tobacco [facility] Medications Ordered Filled Start Stop Current Ordering Indication Dosage Frequency Signature Comments Components Source Medication Medication Date Date Medication? Clinician (SIG) Name Name ibuprofen 2020-05 Yes [id number] 600mg Take 1 Univers 600 mg 1-04 tablet by ity of tablet 00:00: mouth [place] 00 every 6 Medical (six) Branch hours as needed for Pain (scale 4-6). cephALEXin 2020-05 No [id number] 500mg Take 1 Univers (KEFLEX) 1-04 11-15 capsule by ity of 500 mg 00:00: 05:59 mouth 3 [place] capsule 00 :00 (three) Medical times Branch daily for 10 days. benzonatate Yes [id number] 100mg Take 1 Univers 100 mg 9-24 [id number] capsule by ity of capsule 00:00: mouth 3 [place] 00 (three) Medical times Branch daily as needed for Cough. albuterol Yes [id number] 2{puff} Inhale 2 Univers 90 9-24 [id number] Puffs ity of mcg/actuati 00:00: every 4 Jluis as on inhaler 00 (four) Medical hours as Branch needed for Wheezing or Shortness of Breath. benzonatate Yes [id number] 100mg Take 1 Univers 100 mg 9-24 [id number] capsule by ity of capsule 00:00: mouth 3 (three) Medical times Branch daily as needed for Cough. albuterol Yes [id number] 2{puff} Inhale 2 Univers 90 9-24 [id number] Puffs ity of mcg/actuati 00:00: every 4 Jluis as on inhaler 00 (four) Medical hours as Branch needed for Wheezing or Shortness of Breath. benzonatate Yes [id number] 100mg Take 1 Univers 100 mg 9-24 [id number] capsule by ity of capsule 00:00: mouth (three) Medical times Branch daily as needed for Cough. albuterol Yes [id number] 2{puff} Inhale 2 Univers 90 9-24 [id number] Puffs ity of mcg/actuati 00:00: every 4 Jluis as on inhaler 00 (four) Medical hours as Branch needed for Wheezing or Shortness of Breath. predniSONE 2020- No [id number] 40mg Take 2 Univers 20 mg 9-24 09-30 tablets by ity of tablet 00:00: 04:59 mouth [place] 00 :00 daily for Medical 5 days. Branch naproxen Yes [id number] 550mg Take 1 U nivers sodium 550 3-16 tablet by ity of mg tablet 00:00: mouth 2 (two) Medical times Branch daily with meals. benzonatate Yes [id number] 200mg Take 1 Univers 200 mg 3-16 capsule by ity of capsule 00:00: mouth 3 (three) Medical times Branch daily as needed for Cough. naproxen Yes [id number] 550mg Take 1 U nivers sodium 550 3-16 tablet by ity of mg tablet 00:00: mouth 2 (two) Medical times Branch daily with meals. benzonatate Yes [id number] 200mg Take 1 Univers 200 mg 3-16 capsule by ity of capsule 00:00: mouth 3 (three) Medical times Branch daily as needed for Cough. naproxen Yes [id number] 550mg Take 1 U nivers sodium 550 3-16 tablet by ity of mg tablet 00:00: mouth 2 (two) Medical times Branch daily with meals. benzonatate Yes [id number] 200mg Take 1 Univers 200 mg 3-16 capsule by ity of capsule 00:00: mouth 3 (three) Medical times Branch daily as needed for Cough. multivitami Yes 1{tbl} QD Take 1 Me thodi n with 6-[address] minerals 21:16: mouth Hospita tablet 06 daily. l Takes One-A-Day women's ibuprofen Yes 400mg Take 400 Met hodi (ADVIL,MOTR 6-[address] IN) 400 MG 21:16: mouth as Hos beth tablet 06 needed for l headaches. ibuprofen Yes 400mg Take 400 Met hodi (ADVIL,MOTR 6-[address] IN) 400 MG 16:16: mouth as Hos beth tablet 06 needed for l headaches. multivitami Yes 1{tbl} QD Take 1 Me thodi n with 6-[address] minerals 16:16: mouth Hospita tablet 06 daily. l Takes One-A-Day women's ibuprofen Yes 400mg Take 400 Met hodi (ADVIL,MOTR 6-[address] IN) 400 MG 16:16: mouth as Hos beth tablet 06 needed for l headaches. multivitami Yes 1{tbl} QD Take 1 Me thodi n with 6-[address] minerals 16:16: mouth Hospita tablet 06 daily. l Takes One-A-Day women's ibuprofen Yes 400mg Take 400 Met hodi (ADVIL,MOTR 6-[address] IN) 400 MG 16:16: mouth as Hos beth tablet 06 needed for l headaches. multivitami Yes 1{tbl} QD Take 1 Me thodi n with 6-[address] minerals 16:16: mouth Hospita tablet 06 daily. l Takes One-A-Day women's acetaminoph Yes 1{tbl} Take 1 Tab Univers en-codeine 4-27 by mouth ity o f (TYLENOL 00:00: every 4 [place] #3) 300-30 00 (four) Medical mg tablet hours as Branch needed for Pain (scale 4-6). amoxicillin Yes 1{tbl} Take 1 Tab Univers -pot 4-27 by mouth 2 ity of clavulanate 00:00: (two) [place] (AUGMENTIN 00 times Medical XR) daily. Branch 1,000-62.5 mg 12 hr tablet acetaminoph Yes 1{tbl} Take 1 Tab Univers en-codeine 4-27 by mouth ity o f (TYLENOL 00:00: every 4 [place] #3) 300-30 00 (four) Medical mg tablet hours as Branch needed for Pain (scale 4-6). amoxicillin Yes 1{tbl} Take 1 Tab Univers -pot 4-27 by mouth 2 ity of clavulanate 00:00: (two) [place] (AUGMENTIN 00 times Medical XR) daily. Branch 1,000-62.5 mg 12 hr tablet acetaminoph Yes 1{tbl} Take 1 Tab Univers en-codeine 4-27 by mouth ity o f (TYLENOL 00:00: every 4 [place] #3) 300-30 00 (four) Medical mg tablet hours as Branch needed for Pain (scale 4-6). amoxicillin Yes 1{tbl} Take 1 Tab Univers -pot 4-27 by mouth 2 ity of clavulanate 00:00: (two) [place] (AUGMENTIN 00 times Medical XR) daily. Branch 1,000-62.5 mg 12 hr tablet Vital Signs Vital Name Observation Time Observation Value Comments Source Systolic blood 2021-03-14 22:34:00 125 mm[facility]Hg[facility] Diastolic blood 2021-03-14 22:34:00 73 mm[Hg] [facility] Heart rate 2021-03-14 22:34:00 85 /min [facility] Body temperature 2021-03-14 22:34:00 37.28 Edyta [facility] Respiratory rate 2021-03-14 22:34:00 16 /min [facility] Body height 2021-03-14 22:34:00 152.4 cm [facility] [place] [facility] Body weight 2021-03-14 22:34:00 72.576 kg [facility] [place] [facility] BMI 2021-03-14 22:34:00 31.25 kg/m2 [facility] [place] [facility] Oxygen saturation in 2021-03-14 22:34:00 97 /min University of Arterial blood by [facility] Pulse oximetry Branch Systolic blood 2021-02-01 15:32:00 137 mm[Hg] Univer sity of pressure [place] [facility] Diastolic blood 2021-02-01 15:32:00 70 mm[Hg] Unive rsity of pressure [place] [facility] Heart rate 2021-02-01 15:32:00 57 /min [facility]i [facility] [place] [facility] Body temperature 2021-02-01 15:32:00 37.17 Ed[facility]ta [facility] [place] Respiratory rate 2021-02-01 15:32:00 14 /min [facility] ers[facility] [place] [facility] Body weight 2021-02-01 15:32:00 72.576 kg [facility]i [facility] [place] [facility] BMI 2021-02-01 15:32:00 31.25 kg/m2 [facility]i [facility] [place] [facility] Oxygen saturation in 2021-02-01 15:32:00 98 /min University of Arterial blood by [facility] Pulse oximetry Branch Procedures Procedure Date / Time Performed Performing Clinician [facility] e CONSENT/REFUSAL FOR 2021-03-14 22:19:18 Doctor Unassigned, No Un i[facility]ity [facility] [place] DIAGNOSIS AND Name Medical Branch TREATMENT XR CHEST 2 VW 2021-02-01 17:04:00 Jossy Peguero [facility] NOTICE OF PRIVACY 2021-02-01 15:28:52 Doctor Unassigned, No [facility] Name Medical Branch CONSENT/REFUSAL FOR 2021-02-01 15:28:12 Doctor Unassigned, No Un [facility] [place] DIAGNOSIS AND Name Medical Branch TREATMENT [id number] 2020-01-18 00:00:00 [facility] [id number] 2020-01-18 00:00:00 [facility] Encounters Start End Encounter Admission Attending Care Care Encounter Source Date/Time Date/Time Type Type Clinicians Facility Department ID 2020-01-16 [id number] 11:00:[address] [place] [address] 2022-10-09 2022-10-09 emergency [id number] 19:09:00 21:50:00 [id number] 2022-10-09 2022-10-09 Emergency ER JONE, [facility] [id number] [place] 19:09:00 21:50:00 JUNAID -[id number] [facility] 2021-07-04 2021-07-04 Emergency ER , [facility] [id number] [place] 18:21:00 21:18:00 WASIM -[id number] [facility] 2021-04-25 2021-04-25 Emergency ER CHRISTIE, [facility] [id number] [place] 11:11:00 12:13:00 ADIANES -[id number] [facility] 2021-03-14 2021-03-14 Emergency X HAMILTON, K [facility] ERT [id number] Univers 17:36:00 18:46:00 ity of [facility] 2021-03-14 2021-03-14 Emergency Hamilton, K [facility] [id number] Univers 17:36:00 18:46:00 Julianne GILES 350.1.13.10 i ty of [place] 4.2.7.2.686 [facility] [id number] [facility] 084 Branch 2021-03-14 2021-03-14 Orders Doctor YORDAN [id number] Univers 00:00:00 00:00:00 Only Unassigned, BATOOL 350.1.13.10 ity of [place] [facility] 4.2.7.2.686 [facility] [id number] [facility] 009 Branch 2021-02-01 2021-02-01 Emergency Peguero, [facility] [id number] Univers 10:33:00 12:48:00 Jossy Giles 350.1.13.10 i ty of [place] 4.2.7.2.686 [facility] [id number] [place] [address] Branch 2021-02-01 2021-02-01 Emergency X [facility] ERT [id number] Univers 10:26:00 10:26:00 ity of [facility] 2020-11-20 2020-11-21 Emergency ER ASHISH [facility] [id number] [place] 21:46:00 01:08:00 RAMIN -[id number] [facility] 2020-07-31 2020-07-31 Letter Doctor YORDAN [id number] 00:00:00 00:00:00 (Out) Unassigned, [place] 350.1.13.10 [place] [id number] [id number] 2020-07-31 2020-07-31 Letter Doctor YORDAN [id number] 00:00:00 00:00:00 (Out) Unassigned, [place] 350.1.13.10 [place] [facility] 4.2.7.2.686 [id number] 044 2015-06-13 2015-06-13 Emergency ER CHRIS YARBROUGH [facility] [id number] [place] 15:06:00 19:45:00 [id number] [facility] Results Test Description Test Time Test Comments Results Result Comments Source FALLOPIAN 2020-01-19 TUBE,STERILIZATION 13:38:00 RUN DATE: 01/20/20 [facility] PAGE 1 RUN TIME: 1751 Specimen Inquiry RUN USER: INTERFACE PAT IENT: FRANCY ONEAL [facility] #: [id number] LOC: [place] #: [id number] AGE/SX: ROOM: [facility] RE01/18/20REG DR: Ney Walls MD : 89 BED: A DIS: STATUS: ADM IN TLOC: SPEC #: [id number] RECD: 01/18/20 STATUS: BLANKA FELIXGildardo #: [id number] ZAIN: 01/18/20- SUBM DR: Ney Walls MD ENTERED: 01/18/20 SP TYPE: KAVITA METCALF DR: ORDERED: LEVEL II SURGIC/2 CODES: [id number] - FALLOPIAN TUBE PROCEDURES: LEVEL II SURGIC (Incomplete) TISSUES: FALLOPIAN TUBE, NOS - BILATERAL FALLOPIAN TUBES CLINICAL HISTORY 24 year old, , repeat section (wpd) FINAL DIAGNOSIS Specimen #1 right fallopian tube, segmental resection: - no pathologic alterations - completely transected lumen demonstrated Specimen #2 left fallopian tube, segmental resection: - no pathologic alterations - completely transected lumen demonstrated CPT code(s): 59240 x2 cds/kr GROSS DESCRIPTION ANATOMIC SOURCE OF [...] pieces and submitted in toto in B1. shayla/michell 01/18/20 CONTINUED ON NEXT PAGE RUN DATE: 01/20/20 [facility] PAGE 2 RUN TIME: 175 Specimen Inquiry RUN USER: INTERFACE GLENN Stoddard #: [id number] PATIENT: FRANCISCOEMMYFRANCY #[id number] (Continued)-------- -------- Signed Saulo Huerta Spencer 01/19/20 1338 END OF REPORT HGB HCT 2020-01-19 08:17:00 Test Item Value Reference Range Interpretation Comme nts HEMOGLOBIN (test code = HGB) 8.3 g/dL 10.7-13.9 L Results verified by repeat analysis HEMATOCRIT (test code = HCT) 25.9 % 32.1-42.1 L Results verified by repeat analysis AG HEPATITIS B [id number] 15:20:00 Test Item Value Reference Range Interpretation Comments AG HEPATITIS B SURFACE (test code NONREACTIVE NONREACTIVE = HBSAG) : *IS CONSENT FORM SIGNED FOR HIV TESTING? YAB [id number] 15:20:00 Test Item Value Reference Range Interpretation Comments AB TREPONEMA (test code = TREPAB) NONREACTIVE NONREACTIVE : *IS CONSENT FORM SIGNED FOR HIV TESTING? YAB HIV 1 15:20:00 Test Item Value Reference Range Interpretation Comments AB HIV 1 2 (test NONREACTIVE NONREACTIVE [facility] [id number]) 4th Gen HIV Ag/Ab Combo Screen : *IS CONSENT FORM SIGNED FOR HIV TESTING? YAG HEPATITIS B [id number] 14:49:00 Test Item Value Reference Range Interpretation Comments AG HEPATITIS B SURFACE (test code NONREACTIVE NONREACTIVE = HBSAG) : *IS CONSENT FORM SIGNED FOR HIV TESTING? YAB [id number] 14:49:00 Test Item Value Reference Range Interpretation Comments AB TREPONEMA (test code = TREPAB) NONREACTIVE NONREACTIVE : *IS CONSENT FORM SIGNED FOR HIV TESTING? YAB HIV 1 14:49:00 Test Item Value Reference Range Interpretation Comments AB HIV 1 2 (test code = UAG59UU) NONREACTIVE : *IS CONSENT FORM SIGNED FOR HIV TESTING? YCOVID 19 Asymptomatic IH AG 2020-01-16 14:12:00 Test Item Value Reference Range Interpretation Comments COVID 19 NEGATIVE NEGATIVE This test has b een Asymptomatic IH AG authorize d only for the (test code = detection ofpro teins from COVNONPUIAG) SARS-CoV-2, not for any other viruses orpathogens. Ne gative results should be treated as presumptive andconfirmed [...] or approved; th e test hasbeen authori darshana by FDA under an Emerge ncy Use Authorization(E UA) for use by laborato tony certified under the CLIA thatmeet the re quirements to perform mode rate, high or waivedcomple xity tests. This sarah t is authorized for use at thePoint of Car e (POC), i.e., in patien t care settingsoperati ng under a CLIA Certificat e of Waiver, Certifi caio ofCompliance, o r Certificate of Accreditation. This test is only authori zeyamil for the duration of thedeclaration that circumstances e xist justifying theauthorizatio n of emergency use o f in vitro diagnostic test sfor detection and/o r diagnosis of CO VID-19 under Cjfvdok50 4(b)(1) of the Act, 21 U.S .C. 360bbb-3(b)(1), unless theauthorizatio n is terminated or r evoked sooner. CBC W/AUTO [id number] 14:01:00 Test Item Value Reference Range Interpretation [...] REQUIRED (test NORMAL NORMAL code = PLTMR) Notes Date/Time Note Provider Source 2020-03-14 15:39:00-00:00 [id number] [facility] [address] [place], [place] [address] PATIENT NAME: FRANCY ONEAL ADMIT DATE: 01/28 ACCOUNT NO: [id number] ROOM NO: .4676 AGE: 24 SEX: F ADMITTING PHYSICIAN: Ney Walls MD ATTENDING PHYSICIAN: Ney Walls MD ADMISSION DATE: 01/18/2020 DISCHARGE DATE: 01/20/2020 ADMISSION DIAGNOSES: 1. Term . 2. Previous section. 3. Desires permanent sterilization. Discharge home in good condition. PROCEDURES PERFORMED: 1. Repeat . 2. Tubal sterilization. DISCHARGE MEDICATIONS: Include Aydlett, Motrin, an d multivitamin. DISCHARGE EXAM: Benign with incision noted to be clean, dry, and intact. SUMMARY OF HOSPITAL COURSE: The patient presente d for repeat as previously dictated with tubal sterilization. Po stoperatively, she did well. She remained afebrile with stable vital signs th roughout her hospital course. Hemoglobin and hematocrit were stable. She had g ood pain control, tolerated regular diet and ambulated w ithout difficulty. By postoperative day #2, she was meeting all postoperative goals and was discharg ed home in good condition. Discharge exam was benign with incision noted to be clean, dry, and intact. DISCHARGE INSTRUCTIONS: Woun d care instructions were discussed with the patient and family and she was discharged home in good c ondition. FOLLOWUP: Followup was scheduled in 2 weeks for incision check. Dictated By: Ney Walls MD WT: DS:F.HIM/SHEGR/NTS Conf#: [id number]/DID#: [id number] Authenticated by Ney Walls MD On 2019 09:35:03 AM PATIENT NAME: FRANCY ONEAL [id number] Electronically Signed by Ney Walls MD o n 03/15/20 at 0935 PATIENT NAME: FRANYC ONEAL [id number] 2020-01-20 08:19:00-00:00 [facility] OB Postpart Progr Note REPORT#:[id number] REPORT STATUS: Signed DATE:01/20/20 TIME: 818 PATIENT: FRANCY ONEAL UNIT #: [id number] ROOM/BED: [address] : 93 AGE: 24 SEX: F ATTEND: Neisha Walls MD ADM AUTHOR: Ney Walls MD * ALL edits or amendments must be made on the el ectronic/computer document * Subjective Subjective Status/Day: post operative (d2) Patient reports: Patient reports: Yes no complaints, Yes pain management effectiv e, Yes tolerating po well Objective Nursing Documentation Review Nursing Data: The data set between the solid lines has been im ported from nursing documentation. Any exceptions have been noted be low under Provider comments. Feeding preference: Provider comments on imported nursing data: [] General VS: Vital Signs: Date Time Temp Pulse Resp B/P B/P Pulse O2 O2 F low FiO2 Mean Ox Delivery Rate 01/19 0423 98.7 93 18 100/64 01/19 0143 98.7 89 18 98/62 01/18 2033 98.7 83 18 113/69 01/18 1605 98.6 90 20 90/56 01/18 1205 98.5 73 20 90/55 Patient Weight Weight (lb): 190 Weight (oz): Weight (kg): 86.082473 Physical Exam Neuro: Exam: alert, oriented x3 Abdomen: soft, no abnormal tenderness Incision site: well approximated edges, dry, no drainage Uterus: firm, non-tender Fundus: firm, below the umbilicus Diagnosis, Assessment Plan Diagnosis, Assessment Plan Assessment: nml progress Plan: routine care, discharge today at 0820 RPT #:[id number] END OF REPORT 2020-01-19 08:00:00-00:00 [facility] OB Postpart Progr Note REPORT#:[id number] REPORT STATUS: Signed DATE:01/19/20 TIME: 0800 PATIENT: FRANCY ONEAL UNIT #: [id number] ROOM/BED: [address] : 93 AGE: 24 SEX: F ATTEND: Neisha Walls MD ADM AUTHOR: Ney Walls MD * ALL edits or amendments must be made on the el [employer]/computer document * Subjective Subjective Status/Day: post operative (d1) Patient reports: Patient reports: Yes no complaints, Yes pain management effectiv e, Yes tolerating po well Objective Nursing Documentation Review Nursing Data: The data set between the solid lines has been im ported from nursing documentation. Any exceptions have been noted be low under Provider comments. Feeding preference: Provider comments on imported nursing data: [] General VS: Vital Signs: Date Time Temp Pulse Resp B/P B/P Pulse O2 O2 F low FiO2 Mean Ox Delivery Rate 01/18 0410 98.5 90 18 92/55 09/09 2334 98.4 94 18 93/56 09/09 2024 98.8 85 18 107/66 09/09 1630 76.0 09/09 1630 70 34 114/57 96 09/09 1625 78.0 09/09 1625 120/54 09/09 1612 76.0 09/09 1612 98.3 69 18 100/64 97 09/09 1545 71.0 09/09 1545 85 21 98/55 98 09/09 1539 67.0 09/09 1539 96/52 09/09 1530 62.0 09/09 1530 84 25 86/49 98 09/09 1515 64.0 09/09 1515 94 18 92/50 97 09/09 1500 66.0 09/09 1500 76 19 90/51 96 09/09 1445 63.0 09/09 1445 86 20 86/49 97 09/09 1431 70.0 09/09 1431 95/49 09/09 1430 93 38 97 09/09 1415 71.0 09/09 1415 90 22 98/52 96 09/09 1400 70.0 09/09 1400 91 24 96/52 97 09/09 1346 78.0 09/09 1346 111/54 09/09 1345 100 37 96 09/09 1333 87.0 09/09 1333 97.6 95 18 122/65 97 09/09 1040 75.0 09/09 1040 98.1 121 105/57 Patient Weight Weight (lb): 190 Weight (oz): Weight (kg): 86.512556 Physical Exam Neuro: Exam: alert, oriented x3 Abdomen: soft, no abnormal tenderness Incision site: well approximated edges, dry, no drainage Uterus: firm, non-tender Fundus: firm, below the umbilicus Diagnosis, Assessment Plan Diagnosis, Assessment Plan Assessment: nml progress Plan: routine care, discharge tomorro w at 0801 RPT #:[id number] END OF REPORT 2020-01-18 15:27:00-00:00 [facility] ([facility] OB Delivery Note REPORT#:[id number] REPORT STATUS: Signed DATE:01/18/20 TIME: 1527 PATIENT: FRANCY ONEAL UNIT #: [id number] ROOM/BED: [facility]- : 93 AGE: 24 SEX: F ATTEND: Neisha Walls MD ADM AUTHOR: Ney Walls MD * ALL edits or amendments must be made on the el ectronic/computer document * OB Delivery Nursing Documentation Review Nursing data: The data set between the solid lines has been im ported from nursing documentation. Any exceptions have been noted be low under Provider comments. _ ROM date: 01/18/20 ROM time: 1220 Membranes rupture method: AROM Amniotic fluid color: Clear Amniotic fluid amount: EGA (weeks/days): 39.0 EGA at admit (weeks): EGA at delivery (weeks): Steroids prior to arrival: Antibiotic prophylaxis given: Yes evaluation at delivery: Delivery date infant A: 01/18/20 Delivery time i nfant A: 1221 Birthweight (gm) infant A: 4300 Weight (lb) infant A: Weight (oz) A: Gender infant A: Female 1 minute A: 5 minutes A: 10 minutes infant A: Cord pH obtained infant A: Vacuum time A: Vacuum # pulls A: Vacuum # popoffs infant A: QBL at delivery: __ Provider comments on imported nursing data: [] Pre-delivery GBS status: GBS status: negative Vil[place] evaluation at delivery: NRP certified pe rsonnel Admission EGA (wks/days): 39 weeks Baby A Information Baby A information Delivery date: 01/18/20 status: live born Wt of baby (lbs/oz): 9/8 Gender: female 1 minute: 8 5 minutes: 9 Presentation: vertex Nuchal cord Baby A Nuchal cord: no Delivery section Primary indication: elective repeat , p revious Priority: scheduled : : contraindicated Antibiotic prior to incision: 1 dose )(SCDs applied activated: Yes Uterine incision: low transverse Uterine scar: intact Consent: indication discussed, questions answer ed, pt consent to op delivery Mother's condition: mother stable 's condition: stable in nursery Op/Inv Proc Note - Brief )( Procedure(s) performed: repeat low tr ansverse c/s, bilateral tubal ligation )( Primary Surgeon: Luis Walls )( Hat Binder(s): Arlyn Muñoz )( Pre-procedure diagnosis: 39 wk, prev C/S x2, desires sterilization )( Post-procedure diagnosis: same )( Technique/Procedure: LTCS, bilateral salpingectomy Anesthesia: combined spinal/epidural )( Estimated blood loss (ml): 800 )( Specimen removed/altered: left tubal segment, right distal tube )( Complications: none )( Finding(s): nl ut/ov/tubes. hemostatic. counts correct. Condition: stable Blood Loss/Details Blood loss at delivery: <1000 ml, no more than e xpected at 1532 [facility] #:[id number] END OF REPORT 2020-01-18 14:21:00-00:00 [id number] [facility] [address], [place] [address] PATIENT NAME: FRANCY ONEAL ADMIT DATE: 01/28 ACCOUNT NO: [id number] ROOM NO: [facility] AGE: 24 SEX: F ADMITTING PHYSICIAN: Ney Walls MD ATTENDING PHYSICIAN: Ney Walls MD OPERATION DATE: 01/18/2020 PREOPERATIVE DIAGNOSES: 1. A 39-week . 2. Previous section x2. 3. Desires sterilization. POSTOPERATIVE DIAGNOSES: 1. A 39-week . 2. Previous section x2. 3. Desires sterilization. PROCEDURES PERFORMED: 1. Repeat low transverse delivery. 2. Bilateral salpingectomy for sterilization. SURGEON: Ney Walls MD ACCOUNT MANAGER SALES REPRESENTATIVE: Brendon Muñoz MD ESTIMATED BLOOD LOSS: 800 mL. OPERATIVE FINDINGS: 1. Normal-appearing uterus, ovaries, and tubes w ith some adhesions including lower uterine segment, bladder and left fallopia n tube to left ovary. 2. Cephalic female , A pgars 8 and 9, weight 9 pounds 8 ounces, to nursery. 3. Hemostatic. 4. All counts correct. COMPLICATIONS: None. PATHOLOGY: Left mid segment of fallopian tube and right distal fallopian tube. STATEMENT OF MEDICAL NECESSITY: The patient pres ented at 39 weeks' gestation for scheduled repeat with tubal ligati on. Risks, benefits, alternatives, indications in cluding permanence of sterilization, irreversibility procedure, alternative methods of control and failure rate were all discussed with the patient and family and they a greed to plan. STATEMENT OF PROCEDURE: After informed consent w as obtained, the patient was taken to the operating room. Adequate spinal epi dural anesthesia was established. She was prepped and draped in usual sterile fashion. Transverse PATIENT NAME: FRANCY ONEAL [id number] skin incision made through the previous C-sectio n scar. This was carried down to the fascia. Fascia was scored in midline. Fa scial incision was extended bilaterally. Muscle was grasped with Allis clamp s and scalpel was used to create an injury in the upper aspect in the midl ine. This was carried out to the edge of the fascia and taken down to the edg e of the bladder. There were noted to be adhesions of the bladder to the lowe r uterine segment with a very thin lower uterine segment. Bladder flap was created and transverse hysterotomy was made at the higher aspect of the uterus wher e the tissue appeared more viable. Membranes were bluntly ruptured with jonathan ar fluid returned. head was brought to hysterotomy; however, the foot wa s noted to be over the head. The foot was reduced and the head was elevated t o hysterotomy. With fundal pressure, head and body were delivered. Mo uth and nares were bulb suctioned. Cord was doubly c lamped and cut and fetus passed off for evaluation. Placenta was delivered with fundal massage. Ananya tiarra was exteriorized, wrapped in moist laparotomy sponge and curettaged with d ry laparotomy sponge. Hysterotomy was closed with #1 chromic suture in running-locked fashion. It was irrigated and rendered hemostatic. This required few flyydx-gy-cmwqf sutures along the lower edge of the hysterotomy with good hemostasis noted. There were small areas of bleeding at the bladder e dge, which were coagulated using Bovie cautery. Attention was directed to left fallopia n tube. Distal tube was noted to be densely adhesed to the ovary and this was made to proceed with midsegment salpingectomy. A clear area in the mid portion o f tube was identified. Tube was grasped with Malvern clamp. Mesosalpinx was punctured using hemostat and clamped across on either side using hemo stats and mid portion salpingectomy. A segment was removed using Metzenbaum sci ssors. The tubal stumps were then tied off using plain gut suture. The patient was note d to be mall area of bleeding in the mesosalpingeal vessels. These wer e oversewn with gxtlpl-lb-[id number] suture and rendered hemostatic. Attention was directed to the right fallopian tube. Clear and mid portion of tube was identified. Me sosalpinx was punctured using hemostat. Tube was clamped across proximally usi ng hemostat and across the distal mesosalpinx using Merari clamp. The distal tube was removed using Metzenbaum scissors and sent for pathology. The proximal tubal site stump was tied off using a plain gut suture. The mesosalpi ngeal pedicle was doubly ligated first with a free tie and then with castaneda sfixion suture of plain gut. These were inspected with good hemostasis noted. Attention was redirected to the hysterotomy, it was noted to be most ly hemostatic; however, there is small area of bleeding at the area where the bladder w as dissected off the lower uterine segment. This was oversewn with good hemostasis noted and Surgicel was placed. Uterus returned to abdominal cavity and brisk area of bleeding was noted. Uterus was re-exterio rized and there was noted to be bleeding and a form hematoma at the left hysterotomy edge. This was dissected down in stepwise fashion using Metzenbaum scissors until area of bleeding was identified. This was oversewn with a running stitch of #1 chromic . Good hemostasis noted. This was first noted to be close to the bladder and b ladder was back filled using sterile milk without any defects identified. A s mall area of deserosalization in the midline, this was oversewn using a 3-0 Mo nocryl suture with good reapproximation and good hemostasis noted. Small area of bleeding at the bladder edge was identified. This was tied with a free tie. Hemostasis noted. Surgicel was replaced. Uterus was returned to ab dominal cavity. Gutters copiously irrigated and suctioned dry with good hemostasis noted at all operative sites. Peritoneum was reapproximated w ith 2-0 chromic suture. Muscles reapproximated with 2-0 chromic suture. Fascia was closed with 0 Vicryl from either side and tied in the midline. Subcut aneous tissue was copiously irrigated and suctioned dry. It was reapproximat ed with plain gut suture in a running fashion. Skin was closed with 3-0 Monocr yl in running subcuticular PATIENT NAME: FRANCY ONEAL [id number] stitch. Wound was dressed with Mastisol, Steri-S trips, and occlusive bandage. Blood and clot were evacuate d from the uterus and vagina. The patient was taken to recovery room in good condition. There were n o operative or anesthetic complications. Dictated By: Ney Walls MD WT: OP:F.PATRICK/SNOW/MANDO Conf#: [id number]/DID#: [id number] Authenticated by Ney Walls MD On 2019 07:58:13 AM Electronically Signed by Ney Walls MD o n 01/23/20 at 0758 PATIENT NAME: FRANCY ONEAL [id number] 2020-01-18 10:51:00-00:00 [facility] OB Admission / H P REPORT#:[id number] REPORT STATUS: Signed DATE:01/18/20 TIME: 1051 PATIENT: FRANCY ONEAL UNIT #: [id number] ROOM/BED: [facility] : 93 AGE: 24 SEX: F ATTEND: Neisha Walls MD ADM AUTHOR: Ney Walls MD * ALL edits or amendments must be made on the [employer]/computer document * OB Admission H P Hx Chief complaint: scheduled history: : 7 Term: 3 Abortus: 3 Previous : low uterine trans incis Number of prev : 2 Current : EDC: 01/25/20 Admission EGA (wks/days): 39 weeks Conditions of : previous uterine incisi on Labs: Blood type: B Rh: positive Rubella: immune Hepatitis B: negative HIV: negative STD: negative Syphilis: currently negative GBS: negative Procedures: ultrasound, genetic testing Past medical history: denies PMH Past surgical history: , breast lumpect chitra Social history: no alcohol use, no tobacco use, no drug use Allergies Coded Allergies: No Known Allergies (01/18/20) Objective General VS: Patient Weight Weight (lb): Weight (oz): Weight (kg): Physical Exam HEENT: normocephalic w/o injury Neuro: Exam: alert, oriented x3 Abdomen: gravid, soft, no abnormal tenderness Uterine activity: Monitor: toco Frequency (description): none Cervical/ exam: Dilatation (cm): 0 - closed Membranes: Membranes: Intact Baby A: Baby A baseline: 135 bpm Baby A variability: moderate 6-25 bpm Baby A accelerations: 15 X 15 Baby A decelerations: none Baby A FHR category: category 1 Diagnosis, Assessment Plan Diagnosis, Assessment Plan Free Text A P: 39 wk, prev C/S, desires sterilization. repeat C/S with BTL. at 1054 RPT #:[id number] END OF REPORT
[2022-10-18] MEDS ORDERED: NA CHLORIDE 0.9% 1,000 ML ONE (17:57)
[2022-10-18 18:01] LABS: Hematocrit 38.2 % (36.0-45.0); Lymphocytes % 21.3 % (15.3-44.8); MCV 86.3 fL (80-100); MPV 9.8 fL (7.6-11.3); RBC Red Blood Cell Count 4.43 M/uL (3.86-4.86)
[2022-10-18 18:19] LABS: Potassium 3.6 mEq/L (3.5-5.1)
[2022-10-18] MEDS ORDERED: MECLIZINE HCL 12.5 MG TAB ONE (19:24)
[2022-10-18 19:28] LABS: Specific Gravity 1.014 (1.005-1.030)
[2022-10-18 19:30] LABS: Specific Gravity 1.014 (1.005-1.030); Urine Bacteria None Seen /HPF (<20); Urine Bilirubin NEGATIVE (Negative); Urine Blood Negative (Negative); Urine Clarity Turbid (Clear); Urine Color Colorless (Yellow); Urine Glucose NEGATIVE (Negative); Urine Protein NEGATIVE (Negative); Urine RBC <5 /HPF (None Seen); Urine Urobilinogen Normal (Normal)
--- NOTE | 2022-10-18 20:52 | ER ---
Nurse's Notes [facility] Name: Linda Oneal Age: 27 yrs Sex: Female : 1995 Arrival Date: 10/18/2022 Time: 17:30 Bed 18 Private MD: Diagnosis: Iron deficiency anemia, unspecified;Dizziness and giddiness Presentation: 10/18 17:35 Chief complaint: Patient states: DIZZINESS AND EXERTIONAL DYSPNEA x2 WK. Coronavirus bp screen: At this time, the client does not indicate any symptoms associated with coronavirus-19. Ebola Screen: No symptoms or risks identified at this time. Initial Sepsis Screen: Does the patient meet any 2 criteria? No. Patient's initial sepsis screen is negative. Does the patient have a suspected source of infection? No. Patient's initial sepsis screen is negative. Risk Assessment: Do you want to hurt yourself or someone else? Patient reports no desire to harm self or others. Note FOR 2 WK SINCE LMP. Onset of symptoms is unknown. 17:35 Method Of Arrival: Ambulatory bp 17:35 Acuity: FROYLAN 3 bp Triage Assessment: 17:37 General: Appears in no apparent distress. Behavior is calm, cooperative, appropriate bp for age. Pain: Denies pain. EENT: No deficits noted. Neuro: Reports dizziness. Cardiovascular: No deficits noted. Respiratory: Reports shortness of breath. Respiratory: Onset: The symptoms/episode began/occurred 2 WK, the patient has mild shortness of breath. GI: No signs and/or symptoms were reported involving the gastrointestinal system. : No signs and/or symptoms were reported regarding the genitourinary system. Derm: No deficits noted. Musculoskeletal: No deficits noted. Historical: - Allergies: 17:37 NKA; bp - PMHx: 17:37 Anxiety; Ovarian cyst; bp - PSHx: 17:37 Right breast lumpectomy; bp - Immunization history:: Adult Immunizations up to date. - Social history:: Smoking status: Patient denies any tobacco usage or history of. Screenin:52 [facility] ED Fall Risk Assessment (Adult) History of falling in the last 3 months, kl including since admission No falls in past 3 months (0 pts) Confusion or Disorientation No (0 pts) Intoxicated or Sedated No (0 pts) Impaired Gait No (0 pts) Mobility Assist Device Used No (0 pt) Altered Elimination No (0 pt) Score/Fall Risk Level 0 - 2 = Low Risk Oriented to surroundings, Maintained a safe environment. Abuse screen: Denies threats or abuse. Nutritional screening: No deficits noted. Tuberculosis screening: No symptoms or risk factors identified. Assessment: 17:50 Reassessment: Patient is alert, oriented x 3, equal unlabored respirations, skin aa5 warm/dry/pink. 20:52 Reassessment: Patient appears in no apparent distress at this time. Patient denies pain kl at this time. Patient states feeling better. Patient states symptoms have improved. 21:07 Cardiovascular: No deficits noted. Rhythm is regular. Respiratory: Airway is patent kl Respiratory effort is even, unlabored, Breath sounds are clear bilaterally. Vital Signs: 17:35 BP 126 / 83; Pulse 100; Resp 18; Temp 97.2; Pulse Ox 100% ; Weight 68.04 kg; Height 5 bp ft. 0 in. ; 20:02 BP 106 / 56 RA Supine (auto/reg); Pulse 61; Resp 17; Pulse Ox 100% on R/A; mw1 20:07 BP 110 / 70 RA Sitting (auto/reg); Pulse 66; Resp 17; Pulse Ox 100% on R/A; mw1 20:10 BP 109 / 72 RA Standing (auto/reg); Pulse 72; Resp 17; Pulse Ox 100% on R/A; mw1 20:53 BP 100 / 60; Pulse 92; Resp 16; Temp 97(TE); Pulse Ox 98% on R/A; kl 17:35 Body Mass Index 29.29 (68.04 kg, 152.4 cm) bp ED Course: 17:33 Patient arrived in ED. ts1 17:36 Emmy Hyde FNP-C is PHCP. snw 17:36 Davian Moss MD is Attending Physician. snw 17:37 Triage completed. bp 17:37 Arm band placed on. bp 17:50 Initial lab(s) drawn, by nv, sent to lab. Inserted saline lock: 20 gauge in left aa5 antecubital area, using aseptic technique. Blood collected. 19:19 Test, Urine Sent. aa5 19:19 Urinalysis w/ reflexes Sent. aa5 20:14 PHCP role handed off by Emmy Hyde FNP-C kb 20:14 Charla Schultz FNP-C is PHCP. kb 21:07 No provider procedures requiring assistance completed. IV discontinued, intact, kl bleeding controlled, No redness/swelling at site. Pressure dressing applied. 21:08 Patient has correct armband on for positive identification. kl Administered Medications: 17:58 Drug: NS 0.9% IV 1000 ml Route: IV; Rate: 1 bolus; Site: left antecubital; aa5 19:25 Follow up: IV Status: Completed infusion; IV Intake: 1000ml aa5 19:25 Drug: Meclizine PO 50 mg Route: PO; aa5 20:52 Follow up: Response: No adverse reaction; Marked relief of symptoms kl Medication: 21:08 VIS not applicable for this client. kl Intake: 19:25 IV: 1000ml; Total: 1000ml. aa5 Outcome: 20:51 Discharge ordered by MD. kb 21:06 Discharged to home ambulatory. 21:06 Condition: improved 21:06 Discharge instructions given to patient, Instructed on discharge instructions, follow up and referral plans. Demonstrated understanding of instructions, follow-up care. 21:08 Patient left the ED. Signatures: Charla Schultz, MARU-C CERTIFIED REGISTERED NURSE PRACTITIONER-CkRachel Ventura RN RN kl Waters, Shelly, FNP-C CERTIFIED REGISTERED NURSE PRACTITIONER-Citlaly Billings RN RN Karlo Rainey 1 Juno Diamond, RICHARDSON RN bp Ibis Landeros, RADHA PAS ts1
--- NOTE | 2022-10-18 20:53 | EDPHYS ---
Physician Documentation [facility] Name: Linda Oneal Age: 27 yrs Sex: Female : 1995 Arrival Date: 10/18/2022 Time: 17:30 Bed 18 Private MD: ED Physician Davian Moss HPI: 10/18 17:45 This 27 yrs old Female presents to ER via Ambulatory with complaints of snw Shortness Of Breath, Dizziness, General Weakness. 17:45 The patient has shortness of breath with light activity. Onset: The symptoms/episode snw began/occurred acutely, 2 week(s) ago, post LMP. Duration: The symptoms are continuous. Associated signs and symptoms: Pertinent positives: dizziness, occasional blurry vision. Severity of symptoms: At their worst the symptoms were moderate. The patient has not experienced similar symptoms in the past. , LMP lasts 1 week, last was 2 weeks ago. Historical: - Allergies: 17:37 NKA; bp - PMHx: 17:37 Anxiety; Ovarian cyst; bp - PSHx: 17:37 Right breast lumpectomy; bp - Immunization history:: Adult Immunizations up to date. - Social history:: Smoking status: Patient denies any tobacco usage or history of. ROS: 17:45 Constitutional: Negative for fever, chills, and weight loss, Eyes: Negative for injury, snw pain, redness, and discharge, ENT: Negative for injury, pain, and discharge, Neck: Negative for injury, pain, and swelling, Cardiovascular: Negative for chest pain, palpitations, and edema, Respiratory: Negative for cough, wheezing, and pleuritic chest pain, + exertional shortness of breath Abdomen/GI: Negative for abdominal pain, nausea, vomiting, diarrhea, and constipation, Back: Negative for injury and pain, : Negative for injury, bleeding, discharge, and swelling, MS/Extremity: Negative for injury and deformity, Skin: Negative for injury, rash, and discoloration, Psych: Negative for depression, anxiety, suicide ideation, homicidal ideation, and hallucinations. 17:45 Neuro: Positive for dizziness. Exam: 17:44 Constitutional: This is a well developed, well nourished patient who is awake, alert, snw and in no acute distress. Head/Face: Normocephalic, atraumatic. Eyes: Pupils equal round and reactive to light, extra-ocular motions intact. Lids and lashes normal. Conjunctiva and sclera are non-icteric and not injected, pale. Cornea within normal limits. Periorbital areas with no swelling, redness, or edema. ENT: Nares patent. No nasal discharge, no septal abnormalities noted. Tympanic membranes are normal and external auditory canals are clear. Oropharynx with no redness, swelling, or masses, exudates, or evidence of obstruction, uvula midline. Mucous membranes moist. Neck: Trachea midline, no thyromegaly or masses palpated, and no cervical lymphadenopathy. Supple, full range of motion without nuchal rigidity, or vertebral point tenderness. No Meningismus. Chest/axilla: Normal chest wall appearance and motion. Nontender with no deformity. No lesions are appreciated. Cardiovascular: Tachycardic rate and rhythm with a normal S1 and S2. No gallops, murmurs, or rubs. Normal PMI, no JVD. No pulse deficits. Respiratory: Lungs have equal breath sounds bilaterally, clear to auscultation and percussion. No rales, rhonchi or wheezes noted. No increased work of breathing, no retractions or nasal flaring. Abdomen/GI: Soft, non-tender, with normal bowel sounds. No distension or tympany. No guarding or rebound. No evidence of tenderness throughout. Back: No spinal tenderness. No costovertebral tenderness. Full range of motion. Skin: Warm, dry with normal turgor. Normal color with no rashes, no lesions, and no evidence of cellulitis. MS/ Extremity: Pulses equal, no cyanosis. Neurovascular intact. Full, normal range of motion. Neuro: Awake and alert, GCS 15, oriented to person, place, time, and situation. Cranial nerves II-XII grossly intact. Motor strength 5/5 in all extremities. Sensory grossly intact. Cerebellar exam normal. Normal gait. 17:44 Eyes: Pupils equal round and reactive to light, extra-ocular motions intact. Lids and lashes normal. Conjunctiva and sclera are non-icteric and not injected. Cornea within normal limits. Periorbital areas with no swelling, redness, or edema. Vital Signs: 17:35 BP 126 / 83; Pulse 100; Resp 18; Temp 97.2; Pulse Ox 100% ; Weight 68.04 kg; Height 5 bp ft. 0 in. ; 20:02 BP 106 / 56 RA Supine (auto/reg); Pulse 61; Resp 17; Pulse Ox 100% on R/A; mw1 20:07 BP 110 / 70 RA Sitting (auto/reg); Pulse 66; Resp 17; Pulse Ox 100% on R/A; mw1 20:10 BP 109 / 72 RA Standing (auto/reg); Pulse 72; Resp 17; Pulse Ox 100% on R/A; mw1 20:53 BP 100 / 60; Pulse 92; Resp 16; Temp 97(TE); Pulse Ox 98% on R/A; kl 17:35 Body Mass Index 29.29 (68.04 kg, 152.4 cm) bp MDM: 17:42 Patient medically screened. snw 17:47 Differential diagnosis: Anemia Anxiety Reaction Bronchitis. Immunization status:. Data snw reviewed: vital signs, nurses notes. 20:16 Transition of care: After a detail discussion of the patient's case, care is snw transferred to Charla Schultz [facility]. 20:51 Counseling: I had a detailed discussion with the patient and/or guardian regarding: the kb historical points, exam findings, and any diagnostic results supporting the discharge/admit diagnosis, lab results, the need for outpatient follow up, a family practitioner, to return to the emergency department if symptoms worsen or persist or if there are any questions or concerns that arise at home. 10/18 17:43 Order name: Abo/rh Typing; Complete Time: 18:16 sn 10/18 17:43 Order name: Basic Metabolic Panel; Complete Time: 18:20 snw 10/18 17:43 Order name: CBC with Diff; Complete Time: 18:03 snw 10/18 17:43 Order name: Test, Urine; Complete Time: 19:29 snw 10/18 17:43 Order name: Urinalysis w/ reflexes; Complete Time: 19:40 snw 10/18 17:43 Order name: Ferritin; Complete Time: 18:20 snw 10/18 17:43 Order name: IV Saline Lock; Complete Time: 17:58 snw 10/18 17:43 Order name: Labs collected and sent; Complete Time: 17:58 snw 10/18 17:43 Order name: NPO; Complete Time: 17:58 snw 10/18 19:20 Order name: Misc. Order: urine sample pending: please collect; Complete Time: 19:25 snw 10/18 19:52 Order name: Orthostatics; Complete Time: 20:52 snw Administered Medications: 17:58 Drug: NS 0.9% IV 1000 ml Route: IV; Rate: 1 bolus; Site: left antecubital; aa5 19:25 Follow up: IV Status: Completed infusion; IV Intake: 1000ml aa5 19:25 Drug: Meclizine PO 50 mg Route: PO; aa5 20:52 Follow up: Response: No adverse reaction; Marked relief of symptoms kl Disposition: 10/19 09:33 Co-signature as Attending Physician, Davian Moss MD I reviewed the patient's care rn provided by the Advanced Practice Provider and agree with the diagnosis and treatment plan. Disposition Summary: 10/18/22 20:51 Discharge Ordered Location: Home kb Condition: Stable kb Diagnosis - Iron deficiency anemia, unspecified kb - Dizziness and giddiness kb Followup: snw - With: Emergency Department - When: As needed - Reason: Worsening of condition Followup: snw - With: Private Physician - When: 2 - 3 days - Reason: Recheck today's complaints, Continuance of care, Re-evaluation by your physician Discharge Instructions: - Discharge Summary Sheet snw - Iron-Rich Diet snw - Dizziness snw - Rehydration, Adult snw - Preventing Vitamin D Deficiency snw - Preventing Hypoglycemia snw - Preventing Iron Deficiency Anemia, Adult snw Forms: - Medication Reconciliation Form kb - Thank You Letter kb - Antibiotic Education kb - Prescription Opioid Use kb Signatures: Dispatcher [employer] Charla Page, WEIGHT RECORDER-C WEIGHT RECORDER-Ckb Emmy Hyde WEIGHT RECORDER-C WEIGHT RECORDER-Csnw Davian Moss MD MD rn Calderon, Audri RN RN aa5 Juno Diamond RN RN Rachel Mehta RN
[2022-10-18 21:19] VITALS: BP 100/60; TEMP 97; O2SAT 98
== END 2022-10-18 21:08 | disposition home or self-care (01) ==
LOC: ER 17:30
DX: D50.9 Iron deficiency anemia, unspecified (principal)
CPT/HCPCS: 85025; 81001; 80048; 36415; 86900; 81025; 86901; 82728; 96360; 99284; J8597; J7030